=== PATIENT | male | born 1950 | race Caucasian/White ===

== ENCOUNTER 2020-04-14 00:02 | Inpatient (IN) | payer OTHER ==
[~2020-04-14] VITALS: Ht 182.9 cm; Wt 100.0 kg
[2020-04-14] MEDS ORDERED: ASPirin 81 mg TAB PO ONE (01:15)
[2020-04-14] MEDS ORDERED: dilTIAZem 25 MG/5 ML VIAL IV ONE (01:30)
[2020-04-14 01:42] LABS: Basophils # (auto) 0.1 10 ^3/uL (0-0.2); Basophils % (auto) 0.3 % (0.0-2.0); Eosinophils # (auto) 0 10 ^3/uL (0-0.8); Hematocrit 42.9 % (41.0-53.0); Hemoglobin 14.4 g/dL (13.5-17.5); Lymphocytes # (auto) 0.7 10 ^3/uL (0.4-5.4); Lymphocytes % (auto) 3.2 % (10.0-50.0); Mean Corpuscular Hemoglobin 28.2 pg (28.0-32.0); Mean Corpuscular Hgb Conc. 33.5 g/dL (32.0-36.0); Mean Corpuscular Volume 84.2 fL (80.0-100.0); Monocytes % (auto) 4.3 % (0.0-12.0); Neutrophils # (auto) 21.9 10 ^3/uL (1.6-8.6); Neutrophils % (auto) 92.2 % (37.0-80.0); Platelet Count (auto) 366 10^3/uL (140-450); Red Cell Distribution Width 14.6 % (11.8-14.3); White Blood Cell 23.7 10^3/uL (4.4-10.8)
[2020-04-14 01:58] LABS: Albumin 2.5 g/dL (3.4-5.0); BUN/Creatinine Ratio 16.9; Calcium 8.3 mg/dL (8.5-10.1); Magnesium 2.3 mg/dL (1.6-2.6); Potassium 3.7 mmol/L (3.5-5.1)
[2020-04-14 02:01] LABS: Bilirubin, Total 1.2 mg/dL (0.2-1.0); Total Protein 6.7 g/dL (6.4-8.2)
[2020-04-14 02:21] LABS: INR 1.07 (0.9-1.15); Partial Thromboplastin Time 28.2 sec (23.0-31.2)
[2020-04-14] MEDS ORDERED: AMIODARONE HCL 150 MG in D5W 5% 100 ML IV ONE (02:45)
[2020-04-14] MEDS ORDERED: AMIODARONE 450mg/250ml AE 250 ML IV SCH (02:45)
[2020-04-14] MEDS ORDERED: AMIODARONE HCL (50 MG/ ML) 3 ML VIAL IV ONE (02:48)
[2020-04-14 03:40] LABS: Urine Amorphous Crystal FEW /hpf (None Seen); Urine Bacteria FEW /hpf (None Seen); Urine Blood 3+ /uL (Negative); Urine Mucus FEW (None Seen); Urine Specific Gravity 1.019 (1.001-1.035); Urine WBC 7 /hpf (0 - 3)
[2020-04-14] MEDS ORDERED: TEMAZEPAM 15 MG CAP PO PRN (04:45)
[2020-04-14] MEDS ORDERED: DEXTROSE (50%) 50ML SYRG IV PRN ×2 (04:45→22:00)
[2020-04-14] MEDS ORDERED: ONDANSETRON HCL 4 MG/2 ML VIAL IV PRN (04:45)
[2020-04-14] MEDS ORDERED: NITROGLYCERIN 0.4 MG SL TAB SL PRN (04:45)
[2020-04-14] MEDS ORDERED: MORPHINE SULF INJ 2 MG/ML SYRINGE 1ML IV PRN (04:45)
[2020-04-14] MEDS: InsuLIN REG 1unit/0.01ml Soln (100units/ml) SC SCH ×4 (06:28→22:40)
[2020-04-14] MEDS: ACCU-CHEK COMFORT CURVE STRIP VI SCH ×4 (06:29→22:43)
[2020-04-14] MEDS: DOXYCYCLINE 100MG/250ML 250 ML IV SCH ×2 (08:21→20:46)
[2020-04-14] MEDS: PANTOPRAZOLE 40 MG TAB PO SCH (08:21)
[2020-04-14] MEDS: ZINC SULFATE 220mg CAP or TAB PO SCH (08:21)
[2020-04-14] MEDS: DexAMETHasone SOD PHOS 10MG/1ML VIAL INJ IV SCH (08:21)
[2020-04-14] MEDS: ASPirin 81 mg TAB PO SCH (08:21)
[2020-04-14] MEDS: LOSARTAN POTASSIUM 25 MG TAB PO SCH (08:21)
[2020-04-14] MEDS: ATENOLOL 50 MG TAB PO SCH (08:22)
[2020-04-14] MEDS: ASCORBIC ACID 1,000 MG TAB PO SCH (08:22)
[2020-04-14] MEDS: ENOXAPARIN SOD 40 MG/0.4 ML SYRINGE SC SCH (08:22)
[2020-04-14] MEDS: CHOLECALCIFEROL (VITD3) 2,000 UNIT CAP/TAB PO SCH (08:22)
[2020-04-14 08:37] LABS: Lactic Acid w/Reflex 3.7 mmol/L (0.4-2.0)
[2020-04-14] MEDS ORDERED: METF-489 PO (15:26)
[2020-04-14] MEDS ORDERED: LOSA25TA38 PO (15:29)
[2020-04-14] MEDS ORDERED: TAMS0.4C36 PO (15:38)
[2020-04-14] MEDS ORDERED: INS7030I SC (15:38)
[2020-04-14] MEDS ORDERED: INSREG3 SC (15:38)
[2020-04-14] MEDS ORDERED: PIOG1TAB36 PO (15:38)
[2020-04-14] MEDS ORDERED: ATEN50TA PO (15:38)
[2020-04-14] MEDS ORDERED: OMEP-260 PO (15:38)
[2020-04-14] MEDS ORDERED: ATOR40TA52 PO (15:38)
[2020-04-14] MEDS ORDERED: OLAN1TAB19 PO (15:38)
[2020-04-14] MEDS ORDERED: DULO30CA84 PO (15:46)
[2020-04-14] MEDS: AMIODARONE 450mg/250ml AE 250 ML IV SCH (20:46)
[2020-04-14] MEDS: ATORVASTATIN 20 MG TAB PO SCH (20:46)
[2020-04-15] MEDS: ACCU-CHEK COMFORT CURVE STRIP VI SCH ×4 (06:50→21:53)
[2020-04-15] MEDS: InsuLIN REG 1unit/0.01ml Soln (100units/ml) SC SCH ×4 (06:51→21:53)
[2020-04-15 08:43] LABS: Basophils # (auto) 0.1 10 ^3/uL (0-0.2); Eosinophils # (auto) 0 10 ^3/uL (0-0.8); Hemoglobin 14.3 g/dL (13.5-17.5); Lymphocytes # (auto) 1.3 10 ^3/uL (0.4-5.4); Lymphocytes % (auto) 5.7 % (10.0-50.0); Monocytes # (auto) 0.9 10 ^3/uL (0-1.3); Nucleated Red Blood Cells % 0.1 %; Red Cell Distribution Width 14.6 % (11.8-14.3)
[2020-04-15 08:46] LABS: Basophils % (auto) 0.3 % (0.0-2.0); Mean Corpuscular Hemoglobin 28.6 pg (28.0-32.0); Mean Corpuscular Hgb Conc. 34.1 g/dL (32.0-36.0); Mean Corpuscular Volume 83.9 fL (80.0-100.0); Monocytes % (auto) 3.9 % (0.0-12.0); Neutrophils % (auto) 90.1 % (37.0-80.0); Platelet Count (auto) 448 10^3/uL (140-450); Red Blood Cells 5.01 10^6/uL (4.5-5.90); White Blood Cell 23.2 10^3/uL (4.4-10.8)
[2020-04-15 08:57] LABS: Albumin 2.2 g/dL (3.4-5.0); Calcium 8.6 mg/dL (8.5-10.1); Magnesium 2.8 mg/dL (1.6-2.6)
[2020-04-15 09:01] LABS: BUN/Creatinine Ratio 21.4; Bilirubin, Total 1.2 mg/dL (0.2-1.0); Total Protein 7.2 g/dL (6.4-8.2)
[2020-04-15] MEDS: AMIODARONE 450mg/250ml AE 250 ML IV SCH (09:22)
[2020-04-15] MEDS: ASPirin 81 mg TAB PO SCH (09:49)
[2020-04-15] MEDS: DOXYCYCLINE 100MG/250ML 250 ML IV SCH ×2 (09:49→21:52)
[2020-04-15] MEDS: DexAMETHasone SOD PHOS 10MG/1ML VIAL INJ IV SCH (09:49)
[2020-04-15] MEDS: ZINC SULFATE 220mg CAP or TAB PO SCH (09:50)
[2020-04-15] MEDS: PANTOPRAZOLE 40 MG TAB PO SCH (09:51)
[2020-04-15] MEDS: LOSARTAN POTASSIUM 25 MG TAB PO SCH (09:51)
[2020-04-15] MEDS: ATENOLOL 50 MG TAB PO SCH (09:52)
[2020-04-15] MEDS: ASCORBIC ACID 1,000 MG TAB PO SCH (09:53)
[2020-04-15] MEDS: ENOXAPARIN SOD 40 MG/0.4 ML SYRINGE SC SCH (09:54)
[2020-04-15] MEDS: CHOLECALCIFEROL (VITD3) 2,000 UNIT CAP/TAB PO SCH (09:54)
[2020-04-15 16:47] VITALS: BP 105/51
[2020-04-15] MEDS: ATORVASTATIN 20 MG TAB PO SCH (21:52)
[2020-04-15 22:00] VITALS: BP 119/69
[2020-04-16] MEDS: AMIODARONE 450mg/250ml AE 250 ML IV SCH (00:14)
[2020-04-16 05:00] VITALS: BP 145/72
[2020-04-16 06:07] LABS: Basophils # (auto) 0 10 ^3/uL (0-0.2); Eosinophils # (auto) 0 10 ^3/uL (0-0.8); Eosinophils % (auto) 0.2 % (0.0-7.0)
[2020-04-16 06:10] LABS: Hematocrit 40.9 % (41.0-53.0); Hemoglobin 13.8 g/dL (13.5-17.5); Lymphocytes # (auto) 1.1 10 ^3/uL (0.4-5.4); Lymphocytes % (auto) 5.1 % (10.0-50.0); Mean Corpuscular Hemoglobin 28.8 pg (28.0-32.0); Mean Corpuscular Hgb Conc. 33.7 g/dL (32.0-36.0); Mean Corpuscular Volume 85.4 fL (80.0-100.0); Monocytes # (auto) 1.1 10 ^3/uL (0-1.3); Neutrophils # (auto) 19.1 10 ^3/uL (1.6-8.6); Neutrophils % (auto) 89.7 % (37.0-80.0); Nucleated Red Blood Cells % 0.1 %; Platelet Count (auto) 497 10^3/uL (140-450); Red Blood Cells 4.79 10^6/uL (4.5-5.90); Red Cell Distribution Width 14.8 % (11.8-14.3); White Blood Cell 21.3 10^3/uL (4.4-10.8)
[2020-04-16] MEDS: ACCU-CHEK COMFORT CURVE STRIP VI SCH ×4 (06:11→22:36)
[2020-04-16] MEDS: InsuLIN REG 1unit/0.01ml Soln (100units/ml) SC SCH ×4 (06:12→22:38)
[2020-04-16 06:29] LABS: BUN/Creatinine Ratio 31.2; Calcium 8.4 mg/dL (8.5-10.1); Magnesium 2.6 mg/dL (1.6-2.6); Potassium 4.4 mmol/L (3.5-5.1)
[2020-04-16 09:00] VITALS: BP 150/88
[2020-04-16] MEDS: DexAMETHasone SOD PHOS 10MG/1ML VIAL INJ IV SCH (10:12)
[2020-04-16] MEDS: DOXYCYCLINE 100MG/250ML 250 ML IV SCH ×2 (10:12→22:37)
[2020-04-16] MEDS: LOSARTAN POTASSIUM 25 MG TAB PO SCH (10:27)
[2020-04-16] MEDS: ZINC SULFATE 220mg CAP or TAB PO SCH (10:27)
[2020-04-16] MEDS: ASPirin 81 mg TAB PO SCH (10:27)
[2020-04-16] MEDS: PANTOPRAZOLE 40 MG TAB PO SCH (10:27)
[2020-04-16] MEDS: ATENOLOL 50 MG TAB PO SCH (10:28)
[2020-04-16] MEDS: ASCORBIC ACID 1,000 MG TAB PO SCH (10:28)
[2020-04-16] MEDS: CHOLECALCIFEROL (VITD3) 2,000 UNIT CAP/TAB PO SCH (10:28)
[2020-04-16] MEDS: ENOXAPARIN SOD 40 MG/0.4 ML SYRINGE SC SCH (10:29)
[2020-04-16] MEDS ORDERED: AMIODARONE HCL 200 MG TAB PO ONE (10:45)
[2020-04-16] MEDS ORDERED: REMDESIVIR PER PHARMACY 0 ML IV SCH (12:30)
[2020-04-16 13:00] VITALS: BP 148/85
[2020-04-16] MEDS ORDERED: REMDESIVIR 200 MG in NS 210ml LOADING DOSE ADULT IV ONE (15:00)
[2020-04-16 17:00] VITALS: BP 161/91
[2020-04-16] MEDS: SODIUM CHLORIDE 0.9% 1,000 ML IV SCH (18:41)
[2020-04-16 22:00] VITALS: BP 147/85
[2020-04-16] MEDS ORDERED: AMIODARONE HCL 200 MG TAB PO SCH (22:00)
[2020-04-16] MEDS: ATORVASTATIN 20 MG TAB PO SCH (22:37)
[2020-04-16] MEDS: ALBUTEROL SULF HFA 90MCG INH 200DOSE IN PRN (22:56)
[2020-04-17 05:00] VITALS: BP 145/77
[2020-04-17] MEDS: ACCU-CHEK COMFORT CURVE STRIP VI SCH ×4 (06:55→21:17)
[2020-04-17] MEDS: InsuLIN REG 1unit/0.01ml Soln (100units/ml) SC SCH ×4 (07:01→21:19)
[2020-04-17 08:40] VITALS: BP 151/82
[2020-04-17] MEDS: ASCORBIC ACID 1,000 MG TAB PO SCH (10:00)
[2020-04-17] MEDS: DOXYCYCLINE 100MG/250ML 250 ML IV SCH ×2 (11:03→21:17)
[2020-04-17] MEDS: ZINC SULFATE 220mg CAP or TAB PO SCH (11:03)
[2020-04-17] MEDS: ASPirin 81 mg TAB PO SCH (11:03)
[2020-04-17] MEDS: AMIODARONE HCL 200 MG TAB PO SCH (11:04)
[2020-04-17] MEDS: PANTOPRAZOLE 40 MG TAB PO SCH (11:06)
[2020-04-17] MEDS: LOSARTAN POTASSIUM 25 MG TAB PO SCH (11:06)
[2020-04-17] MEDS: ATENOLOL 50 MG TAB PO SCH (11:06)
[2020-04-17] MEDS: DexAMETHasone SOD PHOS 10MG/1ML VIAL INJ IV SCH (11:07)
[2020-04-17] MEDS: ENOXAPARIN SOD 40 MG/0.4 ML SYRINGE SC SCH (11:07)
[2020-04-17] MEDS: SODIUM CHLORIDE 0.9% 1,000 ML IV SCH (11:07)
[2020-04-17] MEDS: CHOLECALCIFEROL (VITD3) 2,000 UNIT CAP/TAB PO SCH (11:07)
[2020-04-17 12:20] LABS: Basophils # (auto) 0 10 ^3/uL (0-0.2); Basophils % (auto) 0.1 % (0.0-2.0); Eosinophils # (auto) 0 10 ^3/uL (0-0.8); Hemoglobin 14.2 g/dL (13.5-17.5); Monocytes # (auto) 0.9 10 ^3/uL (0-1.3)
[2020-04-17 12:22] LABS: Hematocrit 42.5 % (41.0-53.0); Mean Corpuscular Hemoglobin 28.3 pg (28.0-32.0); Mean Corpuscular Hgb Conc. 33.3 g/dL (32.0-36.0); Mean Corpuscular Volume 85.1 fL (80.0-100.0); Monocytes % (auto) 4.9 % (0.0-12.0); Neutrophils # (auto) 17.1 10 ^3/uL (1.6-8.6); Platelet Count (auto) 565 10^3/uL (140-450); Red Blood Cells 4.99 10^6/uL (4.5-5.90); Red Cell Distribution Width 14.8 % (11.8-14.3)
[2020-04-17 12:53] LABS: Potassium 4.7 mmol/L (3.5-5.1)
[2020-04-17 12:56] VITALS: BP 144/81
[2020-04-17 13:04] LABS: Albumin 2.2 g/dL (3.4-5.0); Total Protein 7.1 g/dL (6.4-8.2)
[2020-04-17] MEDS: REMDESIVIR 100 MG in SODIUM CHL 0.9% 250 ML IV SCH (15:12)
[2020-04-17 16:30] VITALS: BP 142/72
[2020-04-17] MEDS: ALBUTEROL SULF HFA 90MCG INH 200DOSE IN PRN (20:58)
[2020-04-17 21:00] VITALS: BP 127/69
[2020-04-17] MEDS: ATORVASTATIN 20 MG TAB PO SCH (21:17)
[2020-04-18 04:40] LABS: Urine Bacteria NONE SEEN /hpf (None Seen); Urine Blood 3+ /uL (Negative); Urine Mucus FEW (None Seen); Urine Specific Gravity 1.021 (1.001-1.035); Urine WBC 54 /hpf (0 - 3)
[2020-04-18 04:55] LABS: Protein, Urine 55.1 mg/dL (0.0-11.9)
[2020-04-18 05:00] VITALS: BP 134/71
[2020-04-18] MEDS: SODIUM CHLORIDE 0.9% 1,000 ML IV SCH ×2 (05:29→22:05)
[2020-04-18] MEDS: ACCU-CHEK COMFORT CURVE STRIP VI SCH ×4 (06:19→22:06)
[2020-04-18] MEDS: InsuLIN REG 1unit/0.01ml Soln (100units/ml) SC SCH ×4 (06:20→22:07)
[2020-04-18 07:27] LABS: Basophils # (auto) 0.1 10 ^3/uL (0-0.2); Basophils % (auto) 0.5 % (0.0-2.0); Eosinophils # (auto) 0 10 ^3/uL (0-0.8); Eosinophils % (auto) 0.1 % (0.0-7.0); Hemoglobin 13.9 g/dL (13.5-17.5); Lymphocytes # (auto) 1.5 10 ^3/uL (0.4-5.4); Mean Corpuscular Volume 85.9 fL (80.0-100.0); Neutrophils # (auto) 17.3 10 ^3/uL (1.6-8.6)
[2020-04-18] MEDS: ALBUTEROL SULF HFA 90MCG INH 200DOSE IN PRN (07:30)
[2020-04-18 07:31] LABS: Hematocrit 42.3 % (41.0-53.0); Lymphocytes % (auto) 7.6 % (10.0-50.0); Mean Corpuscular Hemoglobin 28.1 pg (28.0-32.0); Mean Corpuscular Hgb Conc. 32.8 g/dL (32.0-36.0); Monocytes # (auto) 1.1 10 ^3/uL (0-1.3); Monocytes % (auto) 5.3 % (0.0-12.0); Neutrophils % (auto) 86.5 % (37.0-80.0); Platelet Count (auto) 546 10^3/uL (140-450); Red Blood Cells 4.93 10^6/uL (4.5-5.90); Red Cell Distribution Width 14.6 % (11.8-14.3)
[2020-04-18 07:45] LABS: Magnesium 2.5 mg/dL (1.6-2.6); Potassium 4.6 mmol/L (3.5-5.1)
[2020-04-18 08:07] LABS: Albumin 2.1 g/dL (3.4-5.0); BUN/Creatinine Ratio 32.8; Bilirubin, Total 0.8 mg/dL (0.2-1.0); CRP High Sensitivity 12.5 mg/dL (< 0.3); Total Protein 6.7 g/dL (6.4-8.2)
[2020-04-18 09:00] VITALS: BP 115/66
[2020-04-18] MEDS: DexAMETHasone SOD PHOS 10MG/1ML VIAL INJ IV SCH (10:58)
[2020-04-18] MEDS: DOXYCYCLINE 100MG/250ML 250 ML IV SCH ×2 (10:59→22:06)
[2020-04-18] MEDS: AMIODARONE HCL 200 MG TAB PO SCH (10:59)
[2020-04-18] MEDS: ZINC SULFATE 220mg CAP or TAB PO SCH (10:59)
[2020-04-18] MEDS: LOSARTAN POTASSIUM 25 MG TAB PO SCH (10:59)
[2020-04-18] MEDS: ATENOLOL 50 MG TAB PO SCH (11:00)
[2020-04-18] MEDS: ASCORBIC ACID 1,000 MG TAB PO SCH (11:00)
[2020-04-18] MEDS: CHOLECALCIFEROL (VITD3) 2,000 UNIT CAP/TAB PO SCH (11:00)
[2020-04-18] MEDS: PANTOPRAZOLE 40 MG TAB PO SCH (11:00)
[2020-04-18 13:00] VITALS: BP 117/82
[2020-04-18] MEDS: REMDESIVIR 100 MG in SODIUM CHL 0.9% 250 ML IV SCH (15:24)
[2020-04-18 17:00] VITALS: BP 128/74
[2020-04-18] MEDS: ATORVASTATIN 20 MG TAB PO SCH (22:06)
[2020-04-19 00:35] VITALS: BP 126/70
[2020-04-19] MEDS: ALBUTEROL SULF HFA 90MCG INH 200DOSE IN PRN ×2 (02:48→21:07)
[2020-04-19] MEDS: HALOPERIDOL LACTATE 5 MG/ML INJ VIAL IM PRN ×2 (03:17→21:21)
[2020-04-19 05:00] VITALS: BP 143/91
[2020-04-19] MEDS: ACCU-CHEK COMFORT CURVE STRIP VI SCH ×4 (06:03→21:20)
[2020-04-19] MEDS: InsuLIN REG 1unit/0.01ml Soln (100units/ml) SC SCH ×4 (06:04→21:46)
[2020-04-19 06:53] LABS: Basophils # (auto) 0 10 ^3/uL (0-0.2); Eosinophils # (auto) 0 10 ^3/uL (0-0.8); Eosinophils % (auto) 0.1 % (0.0-7.0); Monocytes # (auto) 1.1 10 ^3/uL (0-1.3)
[2020-04-19 06:55] LABS: Basophils % (auto) 0.2 % (0.0-2.0); Hematocrit 42.6 % (41.0-53.0); Hemoglobin 14.3 g/dL (13.5-17.5); Lymphocytes % (auto) 4.9 % (10.0-50.0); Mean Corpuscular Hemoglobin 28.7 pg (28.0-32.0); Mean Corpuscular Hgb Conc. 33.5 g/dL (32.0-36.0); Mean Corpuscular Volume 85.7 fL (80.0-100.0); Monocytes % (auto) 5.1 % (0.0-12.0); Neutrophils # (auto) 19.3 10 ^3/uL (1.6-8.6); Neutrophils % (auto) 89.7 % (37.0-80.0); Nucleated Red Blood Cells % 0.1 %; Platelet Count (auto) 537 10^3/uL (140-450); Red Blood Cells 4.96 10^6/uL (4.5-5.90); Red Cell Distribution Width 14.9 % (11.8-14.3); White Blood Cell 21.5 10^3/uL (4.4-10.8)
[2020-04-19 07:06] LABS: Potassium 4.7 mmol/L (3.5-5.1)
[2020-04-19 07:14] LABS: Albumin 2.1 g/dL (3.4-5.0); Bilirubin, Total 0.8 mg/dL (0.2-1.0); Calcium 8.9 mg/dL (8.5-10.1); Magnesium 2.4 mg/dL (1.6-2.6); Total Protein 6.6 g/dL (6.4-8.2)
[2020-04-19 09:00] VITALS: BP 114/61
[2020-04-19] MEDS: DexAMETHasone SOD PHOS 10MG/1ML VIAL INJ IV SCH (10:34)
[2020-04-19] MEDS: ZINC SULFATE 220mg CAP or TAB PO SCH (10:34)
[2020-04-19] MEDS: LOSARTAN POTASSIUM 25 MG TAB PO SCH (10:35)
[2020-04-19] MEDS: AMIODARONE HCL 200 MG TAB PO SCH (10:35)
[2020-04-19] MEDS: CHOLECALCIFEROL (VITD3) 2,000 UNIT CAP/TAB PO SCH (10:36)
[2020-04-19] MEDS: PANTOPRAZOLE 40 MG TAB PO SCH (10:36)
[2020-04-19] MEDS: ASCORBIC ACID 1,000 MG TAB PO SCH (10:36)
[2020-04-19] MEDS: ATENOLOL 50 MG TAB PO SCH (10:36)
[2020-04-19] MEDS: SODIUM CHLORIDE 0.9% 1,000 ML IV SCH ×2 (12:55→19:00)
[2020-04-19 13:00] VITALS: BP 111/74
[2020-04-19] MEDS: LACTULOSE 20Gm/30ML SOLN PO ONE ×2 (14:15→15:39)
[2020-04-19] MEDS: REMDESIVIR 100 MG in SODIUM CHL 0.9% 250 ML IV SCH (15:40)
[2020-04-19 17:00] VITALS: BP 127/70
[2020-04-19] MEDS: ATORVASTATIN 20 MG TAB PO SCH (21:20)
[2020-04-19 23:14] VITALS: BP 117/63
[2020-04-20 05:00] VITALS: BP 131/54
[2020-04-20] MEDS: ACCU-CHEK COMFORT CURVE STRIP VI SCH ×4 (06:44→22:10)
[2020-04-20] MEDS: InsuLIN REG 1unit/0.01ml Soln (100units/ml) SC SCH ×4 (06:45→22:11)
[2020-04-20 07:53] LABS: Basophils # (auto) 0.1 10 ^3/uL (0-0.2); Eosinophils # (auto) 0 10 ^3/uL (0-0.8); Lymphocytes # (auto) 1.6 10 ^3/uL (0.4-5.4); Monocytes # (auto) 1.4 10 ^3/uL (0-1.3); Neutrophils % (auto) 86.5 % (37.0-80.0)
[2020-04-20 07:56] LABS: Basophils % (auto) 0.2 % (0.0-2.0); Hematocrit 45.3 % (41.0-53.0); Lymphocytes % (auto) 7.1 % (10.0-50.0); Mean Corpuscular Hemoglobin 28.8 pg (28.0-32.0); Mean Corpuscular Hgb Conc. 33.1 g/dL (32.0-36.0); Monocytes % (auto) 6.2 % (0.0-12.0); Neutrophils # (auto) 19.7 10 ^3/uL (1.6-8.6); Platelet Count (auto) 574 10^3/uL (140-450); Red Cell Distribution Width 14.9 % (11.8-14.3); White Blood Cell 22.8 10^3/uL (4.4-10.8)
[2020-04-20 08:00] VITALS: BP 145/57
[2020-04-20] MEDS: Ensure Enlive Strawberry 8oz Bottle PO SCH ×2 (08:00→18:00)
[2020-04-20 08:08] LABS: Albumin 2.3 g/dL (3.4-5.0); Calcium 9.1 mg/dL (8.5-10.1); Magnesium 2.9 mg/dL (1.6-2.6); Potassium 5.3 mmol/L (3.5-5.1)
[2020-04-20 08:11] LABS: BUN/Creatinine Ratio 30.2; Bilirubin, Total 0.8 mg/dL (0.2-1.0)
[2020-04-20] MEDS: AMIODARONE HCL 200 MG TAB PO SCH (08:51)
[2020-04-20] MEDS: DexAMETHasone SOD PHOS 10MG/1ML VIAL INJ IV SCH (08:51)
[2020-04-20] MEDS: ATENOLOL 50 MG TAB PO SCH (08:52)
[2020-04-20] MEDS: PANTOPRAZOLE 40 MG TAB PO SCH (08:52)
[2020-04-20] MEDS: LOSARTAN POTASSIUM 25 MG TAB PO SCH (08:53)
[2020-04-20] MEDS: ZINC SULFATE 220mg CAP or TAB PO SCH (08:53)
[2020-04-20] MEDS: CHOLECALCIFEROL (VITD3) 2,000 UNIT CAP/TAB PO SCH (08:54)
[2020-04-20] MEDS: ASCORBIC ACID 1,000 MG TAB PO SCH (08:54)
[2020-04-20] MEDS: ENOXAPARIN SOD 40 MG/0.4 ML SYRINGE SC SCH (08:54)
[2020-04-20] MEDS: SODIUM CHLORIDE 0.9% 1,000 ML IV SCH (09:22)
[2020-04-20] MEDS ORDERED: LACTULOSE 20Gm/30ML SOLN PO PRN (10:00)
[2020-04-20 13:37] VITALS: BP 97/48
[2020-04-20] MEDS: REMDESIVIR 100 MG in SODIUM CHL 0.9% 250 ML IV SCH (15:59)
[2020-04-20] MEDS ORDERED: SODIUM ZIRCONIUM CYCL 10 GM PAK PO ONE (18:00)
[2020-04-20] MEDS: ALBUTEROL SULF HFA 90MCG INH 200DOSE IN PRN (18:42)
[2020-04-20] MEDS: ATORVASTATIN 20 MG TAB PO SCH (22:10)
[2020-04-21] VITALS (34 sets, daily range): BP systolic 78–195; BP diastolic 14–69
[2020-04-21] MEDS ORDERED: ETOMIDATE (2MG/ML) 20ML VIAL IV ONE (06:38)
[2020-04-21] MEDS ORDERED: SUCCINYLCHOLINE CHLORIDE 20 MG/ML 10ML VIAL IV ONE (06:38)
[2020-04-21] MEDS ORDERED: MIDAZOLAM DRIP 50 mg/50mL 50 ML IV ONE ×3 (06:49→10:53)
[2020-04-21] MEDS: ACCU-CHEK COMFORT CURVE STRIP VI SCH ×4 (07:00→22:00)
[2020-04-21] MEDS: InsuLIN REG 1unit/0.01ml Soln (100units/ml) SC SCH ×4 (07:01→21:37)
[2020-04-21] MEDS ORDERED: PROPOFOL 100 ML IV ONE (07:05)
[2020-04-21] MEDS ORDERED: NOREPINEPHRINE 8 MG/250ML KIT 250 ML IV ONE ×2 (07:05→09:15)
[2020-04-21] MEDS: Ensure Enlive Strawberry 8oz Bottle PO SCH ×2 (08:00→18:00)
[2020-04-21 08:47] LABS: Hemoglobin 15.3 g/dL (13.5-17.5)
[2020-04-21 08:51] LABS: Hematocrit 47.3 % (41.0-53.0); Mean Corpuscular Hemoglobin 28.4 pg (28.0-32.0); Mean Corpuscular Hgb Conc. 32.3 g/dL (32.0-36.0); Mean Corpuscular Volume 87.9 fL (80.0-100.0); Platelet Count (auto) 640 10^3/uL (140-450); Red Blood Cells 5.38 10^6/uL (4.5-5.90)
[2020-04-21 08:53] LABS: BUN/Creatinine Ratio 21.1; Calcium 8.4 mg/dL (8.5-10.1); Magnesium 2.5 mg/dL (1.6-2.6); Potassium 4.8 mmol/L (3.5-5.1)
[2020-04-21 09:08] LABS: Basophils % (manual) 0 (0.0-2.0); Blast Cells 0; Eosinophils % (manual) 0 (0-7); Metamyelocytes % 0; Myelocytes % 0; Promyelocytes % 0; Reactive Lymphocytes 0; White Blood Cell 30.2 10^3/uL (4.4-10.8)
[2020-04-21] MEDS ORDERED: PHENYLEPHRINE IV 250 ML IV ONE (09:17)
[2020-04-21] MEDS ORDERED: VANCOMYCIN PER PHARMACY 0 MG IV SCH (09:30)
[2020-04-21] MEDS ORDERED: cefTRIAXone 1GM/50ML D5W 50 ML IV ONE (09:30)
[2020-04-21] MEDS: ATENOLOL 50 MG TAB PO SCH (10:00)
[2020-04-21] MEDS ORDERED: VANCOMYCIN 1GM/250ML 250 ML IV SCH (10:00)
[2020-04-21] MEDS: LOSARTAN POTASSIUM 25 MG TAB PO SCH (10:00)
[2020-04-21] MEDS: ZINC SULFATE 220mg CAP or TAB PO SCH (10:33)
[2020-04-21] MEDS: ASCORBIC ACID 1,000 MG TAB PO SCH (10:33)
[2020-04-21] MEDS: AMIODARONE HCL 200 MG TAB PO SCH (10:33)
[2020-04-21] MEDS: PANTOPRAZOLE 40 MG TAB PO SCH (10:33)
[2020-04-21] MEDS: DexAMETHasone SOD PHOS 10MG/1ML VIAL INJ IV SCH (10:33)
[2020-04-21] MEDS: CHOLECALCIFEROL (VITD3) 2,000 UNIT CAP/TAB PO SCH (10:33)
[2020-04-21] MEDS: ENOXAPARIN SOD 40 MG/0.4 ML SYRINGE SC SCH (10:33)
[2020-04-21 10:40] LABS: Band Neutrophils % (manual) 8; Lymphocytes % (manual) 2 (10.0-50.0); Monocytes % (manual) 1 (0-12)
[2020-04-21] MEDS: PROPOFOL 100 ML IV SCH ×2 (11:45→23:09)
[2020-04-21] MEDS: MIDAZOLAM DRIP 50 mg/50mL 50 ML IV SCH ×2 (11:45→20:00)
[2020-04-21] MEDS: NOREPINEPHRINE 8 MG/250ML KIT 250 ML IV SCH (13:15)
[2020-04-21] MEDS: PHENYLEPHRINE IV 250 ML IV SCH ×2 (13:15→20:05)
[2020-04-21 16:04] LABS: INR 1.34 (0.9-1.15); Partial Thromboplastin Time 30.4 sec (23.0-31.2)
[2020-04-21] MEDS: DOPamine 1600MCG/ML D5W 250 ML IV SCH (18:15)
[2020-04-21] MEDS: ATORVASTATIN 20 MG TAB PO SCH (22:00)
[2020-04-21] MEDS: SODIUM CHLOR 0.9% PF (SALINE LOCK) 10ML VIAL/SYR IV SCH (22:00)
[2020-04-22] VITALS (90 sets, daily range): BP systolic 69–154; BP diastolic 13–47
[2020-04-22] MEDS: PHENYLEPHRINE IV 250 ML IV SCH ×3 (04:25→21:03)
[2020-04-22 04:40] LABS: Hematocrit 41.2 % (41.0-53.0); Hemoglobin 13.1 g/dL (13.5-17.5); Mean Corpuscular Hemoglobin 28.1 pg (28.0-32.0); Mean Corpuscular Hgb Conc. 31.9 g/dL (32.0-36.0); Mean Corpuscular Volume 88.3 fL (80.0-100.0); Platelet Count (auto) 372 10^3/uL (140-450); Red Blood Cells 4.67 10^6/uL (4.5-5.90); Red Cell Distribution Width 15.5 % (11.8-14.3); White Blood Cell 29.8 10^3/uL (4.4-10.8)
[2020-04-22] MEDS: MIDAZOLAM DRIP 50 mg/50mL 50 ML IV SCH ×4 (05:00→21:05)
[2020-04-22 05:01] LABS: Basophils % (manual) 0 (0.0-2.0); Blast Cells 0; Eosinophils % (manual) 0 (0-7); Metamyelocytes % 0; Myelocytes % 0; Promyelocytes % 0; Reactive Lymphocytes 0
[2020-04-22 05:18] LABS: Albumin 1.7 g/dL (3.4-5.0); BUN/Creatinine Ratio 19.2; Bilirubin, Total 0.5 mg/dL (0.2-1.0); Calcium 7.9 mg/dL (8.5-10.1); Total Protein 5.8 g/dL (6.4-8.2)
[2020-04-22 05:54] LABS: Potassium 5.9 mmol/L (3.5-5.1)
[2020-04-22] MEDS: ACCU-CHEK COMFORT CURVE STRIP VI SCH ×3 (06:25→17:12)
[2020-04-22] MEDS: InsuLIN REG 1unit/0.01ml Soln (100units/ml) SC SCH ×4 (06:26→21:03)
[2020-04-22] MEDS: NOREPINEPHRINE 8 MG/250ML KIT 250 ML IV SCH (07:00)
[2020-04-22] MEDS: AMIODARONE HCL 200 MG TAB PO SCH (08:01)
[2020-04-22] MEDS: LOSARTAN POTASSIUM 25 MG TAB PO SCH (08:02)
[2020-04-22] MEDS: ATENOLOL 50 MG TAB PO SCH (08:02)
[2020-04-22] MEDS: DOPamine 1600MCG/ML D5W 250 ML IV SCH (08:55)
[2020-04-22] MEDS ORDERED: cefTRIAXone 1GM/50ML D5W 50 ML IV SCH (09:00)
[2020-04-22] MEDS: ASCORBIC ACID 1,000 MG TAB PO SCH (09:32)
[2020-04-22] MEDS: PANTOPRAZOLE 40 MG TAB PO SCH (09:32)
[2020-04-22] MEDS: ENOXAPARIN SOD 40 MG/0.4 ML SYRINGE SC SCH (09:32)
[2020-04-22] MEDS: ZINC SULFATE 220mg CAP or TAB PO SCH (09:32)
[2020-04-22] MEDS: CHOLECALCIFEROL (VITD3) 2,000 UNIT CAP/TAB PO SCH (09:32)
[2020-04-22] MEDS: DexAMETHasone SOD PHOS 10MG/1ML VIAL INJ IV SCH (09:32)
[2020-04-22] MEDS: SODIUM CHLOR 0.9% PF (SALINE LOCK) 10ML VIAL/SYR IV SCH ×2 (09:32→21:03)
[2020-04-22] MEDS: Ensure Enlive Strawberry 8oz Bottle PO SCH ×2 (09:33→15:48)
[2020-04-22] MEDS ORDERED: DEXTROSE (50%) 50ML SYRG IV ONE (12:15)
[2020-04-22] MEDS ORDERED: InsuLIN REG 1unit/0.01ml Soln (100units/ml) IV ONE (12:15)
[2020-04-22] MEDS ORDERED: SODIUM ZIRCONIUM CYCL 10 GM PAK PO ONE (12:15)
[2020-04-22] MEDS ORDERED: SODIUM BICARBONATE 8.4% INJ 50ML SYRINGE IV ONE ×2 (12:15→19:00)
[2020-04-22] MEDS ORDERED: ALBUTEROL SULF 2.5 MG/0.5ML(0.5%) NEB SOLN NEB ONE ×2 (12:15→19:00)
[2020-04-22 13:03] LABS: Band Neutrophils % (manual) 15
[2020-04-22 13:04] LABS: Lymphocytes % (manual) 3 (10.0-50.0); Monocytes % (manual) 3 (0-12)
[2020-04-22] MEDS: ALBUTEROL SULF 2.5 MG/0.5ML(0.5%) NEB SOLN NEB SCH ×2 (14:07→18:37)
[2020-04-22] MEDS: LINEZOLID 600MG/300ML 300 ML IV SCH (14:27)
[2020-04-22] MEDS: MEROPENEM 500MG IVPB 50 ML IV SCH (16:00)
[2020-04-22] MEDS: BUDESONIDE (INHALATION) 0.5 MG/2 ML NEB NEB SCH (18:37)
[2020-04-22] MEDS ORDERED: CALCIUM GLUC 4.65meq/50ml D5AE 50 ML IV ONE (19:00)
[2020-04-22] MEDS: ATORVASTATIN 20 MG TAB PO SCH (21:03)
[2020-04-22] MEDS: PROPOFOL 100 ML IV SCH (21:05)
[2020-04-22] MEDS ORDERED: INSULIN LANTUS (GLARGINE) 1 /0.01ml (100units/ml) SC SCH (22:00)
[2020-04-23] VITALS (92 sets, daily range): BP systolic 83–143; BP diastolic 19–234
[2020-04-23] MEDS: DOPamine 1600MCG/ML D5W 250 ML IV SCH ×2 (00:08→16:40)
[2020-04-23] MEDS: ACCU-CHEK COMFORT CURVE STRIP VI SCH ×5 (00:08→23:38)
[2020-04-23] MEDS: InsuLIN REG 1unit/0.01ml Soln (100units/ml) SC SCH ×5 (00:09→23:39)
[2020-04-23] MEDS: AMIODARONE HCL 200 MG TAB PO SCH ×2 (00:12→00:13)
[2020-04-23] MEDS: LINEZOLID 600MG/300ML 300 ML IV SCH ×2 (01:18→14:06)
[2020-04-23] MEDS: PROPOFOL 100 ML IV SCH ×2 (01:23→22:55)
[2020-04-23] MEDS: MEROPENEM 500MG IVPB 50 ML IV SCH ×2 (04:00→16:44)
[2020-04-23 04:56] LABS: Mean Corpuscular Hemoglobin 28.9 pg (28.0-32.0)
[2020-04-23 05:02] LABS: Hematocrit 41.5 % (41.0-53.0); Hemoglobin 13.4 g/dL (13.5-17.5); Mean Corpuscular Hgb Conc. 32.3 g/dL (32.0-36.0); Mean Corpuscular Volume 89.4 fL (80.0-100.0); Platelet Count (auto) 266 10^3/uL (140-450); Red Blood Cells 4.64 10^6/uL (4.5-5.90); Red Cell Distribution Width 15.6 % (11.8-14.3)
[2020-04-23 05:09] LABS: Calcium 7.6 mg/dL (8.5-10.1)
[2020-04-23 05:12] LABS: BUN/Creatinine Ratio 24.5
[2020-04-23] MEDS: PHENYLEPHRINE IV 250 ML IV SCH ×3 (05:25→22:05)
[2020-04-23 05:58] LABS: Potassium 5.7 mmol/L (3.5-5.1)
[2020-04-23 05:59] LABS: Band Neutrophils % (manual) 0; Basophils % (manual) 0 (0.0-2.0); Blast Cells 0; Eosinophils % (manual) 0 (0-7); Metamyelocytes % 0; Myelocytes % 0; Promyelocytes % 0; Reactive Lymphocytes 0; White Blood Cell 31.1 10^3/uL (4.4-10.8)
[2020-04-23] MEDS: BUDESONIDE (INHALATION) 0.5 MG/2 ML NEB NEB SCH ×2 (06:30→19:35)
[2020-04-23] MEDS: ALBUTEROL SULF 2.5 MG/0.5ML(0.5%) NEB SOLN NEB SCH ×3 (06:30→19:35)
[2020-04-23] MEDS: MIDAZOLAM DRIP 50 mg/50mL 50 ML IV SCH ×3 (07:00→18:52)
[2020-04-23 08:12] LABS: Lymphocytes % (manual) 9 (10.0-50.0); Monocytes % (manual) 1 (0-12)
[2020-04-23] MEDS ORDERED: SODIUM ZIRCONIUM CYCL 10 GM PAK ONE (08:52)
[2020-04-23] MEDS: DexAMETHasone SOD PHOS 10MG/1ML VIAL INJ IV SCH (08:54)
[2020-04-23] MEDS: PANTOPRAZOLE 40 MG TAB PO SCH (08:55)
[2020-04-23] MEDS: ATENOLOL 50 MG TAB PO SCH (08:55)
[2020-04-23] MEDS: ZINC SULFATE 220mg CAP or TAB PO SCH (08:55)
[2020-04-23] MEDS: SODIUM CHLOR 0.9% PF (SALINE LOCK) 10ML VIAL/SYR IV SCH ×2 (08:55→22:00)
[2020-04-23] MEDS: ASCORBIC ACID 1,000 MG TAB PO SCH (08:56)
[2020-04-23] MEDS: CHOLECALCIFEROL (VITD3) 2,000 UNIT CAP/TAB PO SCH (08:56)
[2020-04-23] MEDS ORDERED: AMIODARONE HCL 150 MG in D5W 5% 100 ML IV ONE (09:00)
[2020-04-23] MEDS ORDERED: ENOXAPARIN SOD 80 MG/0.8ML SYRINGE SC SCH (09:00)
[2020-04-23] MEDS ORDERED: SODIUM ZIRCONIUM CYCL 10 GM PAK PO ONE (09:00)
[2020-04-23] MEDS ORDERED: AMIODARONE 450mg/250ml AE 250 ML IV SCH (09:15)
[2020-04-23] MEDS ORDERED: ENOXAPARIN SOD 60 MG/0.6 ML SYRINGE SC ONE (09:26)
[2020-04-23] MEDS: INSULIN LANTUS (GLARGINE) 1 /0.01ml (100units/ml) SC SCH ×2 (11:43→22:00)
[2020-04-23] MEDS: NOREPINEPHRINE 8 MG/250ML KIT 250 ML IV SCH ×2 (11:45→15:35)
[2020-04-23] MEDS: ENOXAPARIN SOD 80 MG/0.8ML SYRINGE SC SCH (12:02)
[2020-04-23] MEDS: AMIODARONE 450mg/250ml AE 250 ML IV SCH (15:15)
[2020-04-23] MEDS ORDERED: Glucerna 1.2 Cal 1Liter BOTTLE GT SCH (19:30)
[2020-04-23] MEDS: ACETAMINOPHEN 325 MG TAB PO PRN (21:00)
[2020-04-23] MEDS: ATORVASTATIN 20 MG TAB PO SCH (22:00)
[2020-04-24] VITALS (92 sets, daily range): BP systolic 83–138; BP diastolic 19–229
[2020-04-24] MEDS: LINEZOLID 600MG/300ML 300 ML IV SCH ×2 (02:00→13:41)
[2020-04-24] MEDS: NOREPINEPHRINE 8 MG/250ML KIT 250 ML IV SCH (02:52)
[2020-04-24] MEDS: MEROPENEM 500MG IVPB 50 ML IV SCH ×2 (04:00→16:13)
[2020-04-24] MEDS: MIDAZOLAM DRIP 50 mg/50mL 50 ML IV SCH ×4 (04:00→22:23)
[2020-04-24] MEDS: DOPamine 1600MCG/ML D5W 250 ML IV SCH ×2 (04:55→10:10)
[2020-04-24 05:10] LABS: Basophils # (auto) 0 10 ^3/uL (0-0.2); Basophils % (auto) 0.2 % (0.0-2.0); Eosinophils # (auto) 0 10 ^3/uL (0-0.8); Hematocrit 41.4 % (41.0-53.0); Hemoglobin 13.6 g/dL (13.5-17.5); Lymphocytes # (auto) 1.3 10 ^3/uL (0.4-5.4); Lymphocytes % (auto) 4.7 % (10.0-50.0); Mean Corpuscular Hemoglobin 29.1 pg (28.0-32.0); Mean Corpuscular Hgb Conc. 32.9 g/dL (32.0-36.0); Mean Corpuscular Volume 88.3 fL (80.0-100.0); Monocytes # (auto) 1.3 10 ^3/uL (0-1.3); Monocytes % (auto) 4.8 % (0.0-12.0); Neutrophils # (auto) 25.6 10 ^3/uL (1.6-8.6); Neutrophils % (auto) 90.3 % (37.0-80.0); Nucleated Red Blood Cells % 0.1 %; Platelet Count (auto) 257 10^3/uL (140-450); Red Blood Cells 4.69 10^6/uL (4.5-5.90); Red Cell Distribution Width 15.4 % (11.8-14.3); White Blood Cell 28.4 10^3/uL (4.4-10.8)
[2020-04-24 05:28] LABS: Potassium 5.5 mmol/L (3.5-5.1)
[2020-04-24 05:33] LABS: Calcium 7.7 mg/dL (8.5-10.1); Magnesium 2.7 mg/dL (1.6-2.6)
[2020-04-24] MEDS: ACCU-CHEK COMFORT CURVE STRIP VI SCH ×3 (05:59→18:00)
[2020-04-24] MEDS: ACETAMINOPHEN 325 MG TAB PO PRN ×2 (06:00→20:00)
[2020-04-24] MEDS: InsuLIN REG 1unit/0.01ml Soln (100units/ml) SC SCH ×3 (06:02→18:25)
[2020-04-24] MEDS: PHENYLEPHRINE IV 250 ML IV SCH ×3 (06:25→22:17)
[2020-04-24] MEDS: ALBUTEROL SULF 2.5 MG/0.5ML(0.5%) NEB SOLN NEB SCH ×3 (06:48→21:57)
[2020-04-24] MEDS: BUDESONIDE (INHALATION) 0.5 MG/2 ML NEB NEB SCH ×2 (06:49→21:57)
[2020-04-24] MEDS: AMIODARONE 450mg/250ml AE 250 ML IV SCH ×2 (07:55→22:15)
[2020-04-24] MEDS: ATENOLOL 50 MG TAB PO SCH (10:00)
[2020-04-24] MEDS: ENOXAPARIN SOD 80 MG/0.8ML SYRINGE SC SCH (10:07)
[2020-04-24] MEDS: DexAMETHasone SOD PHOS 10MG/1ML VIAL INJ IV SCH (10:07)
[2020-04-24] MEDS: ASCORBIC ACID 1,000 MG TAB PO SCH (10:08)
[2020-04-24] MEDS: PANTOPRAZOLE 40 MG TAB PO SCH (10:08)
[2020-04-24] MEDS: ZINC SULFATE 220mg CAP or TAB PO SCH (10:08)
[2020-04-24] MEDS: CHOLECALCIFEROL (VITD3) 2,000 UNIT CAP/TAB PO SCH (10:08)
[2020-04-24] MEDS: SODIUM CHLOR 0.9% PF (SALINE LOCK) 10ML VIAL/SYR IV SCH ×2 (10:09→22:16)
[2020-04-24] MEDS: INSULIN LANTUS (GLARGINE) 1 /0.01ml (100units/ml) SC SCH ×2 (10:34→22:19)
[2020-04-24] MEDS ORDERED: SODIUM ZIRCONIUM CYCL 10 GM PAK PO ONE (12:15)
[2020-04-24] MEDS: PROPOFOL 100 ML IV SCH ×2 (16:10→22:22)
[2020-04-24] MEDS: ATORVASTATIN 20 MG TAB PO SCH (22:17)
[2020-04-25] VITALS (97 sets, daily range): BP systolic 75–135; BP diastolic 16–88
[2020-04-25] MEDS: MIDAZOLAM DRIP 50 mg/50mL 50 ML IV SCH ×3 (02:00→20:00)
[2020-04-25] MEDS: LINEZOLID 600MG/300ML 300 ML IV SCH ×2 (02:10→14:37)
[2020-04-25] MEDS: MEROPENEM 500MG IVPB 50 ML IV SCH (04:00)
[2020-04-25 05:49] LABS: Basophils # (auto) 0.1 10 ^3/uL (0-0.2); Basophils % (auto) 0.3 % (0.0-2.0); Eosinophils # (auto) 0 10 ^3/uL (0-0.8); Hemoglobin 13.2 g/dL (13.5-17.5); Lymphocytes # (auto) 1.3 10 ^3/uL (0.4-5.4); Lymphocytes % (auto) 5.3 % (10.0-50.0); Mean Corpuscular Hemoglobin 28.6 pg (28.0-32.0); Mean Corpuscular Hgb Conc. 32.2 g/dL (32.0-36.0); Mean Corpuscular Volume 88.9 fL (80.0-100.0); Monocytes # (auto) 1.2 10 ^3/uL (0-1.3); Monocytes % (auto) 4.8 % (0.0-12.0); Neutrophils # (auto) 22.6 10 ^3/uL (1.6-8.6); Neutrophils % (auto) 89.6 % (37.0-80.0); Platelet Count (auto) 219 10^3/uL (140-450); Red Blood Cells 4.62 10^6/uL (4.5-5.90); Red Cell Distribution Width 15.5 % (11.8-14.3); White Blood Cell 25.3 10^3/uL (4.4-10.8)
[2020-04-25] MEDS: ACCU-CHEK COMFORT CURVE STRIP VI SCH ×4 (05:54→18:03)
[2020-04-25] MEDS: InsuLIN REG 1unit/0.01ml Soln (100units/ml) SC SCH ×4 (05:59→18:00)
[2020-04-25 06:07] LABS: Calcium 8.1 mg/dL (8.5-10.1); Magnesium 3.2 mg/dL (1.6-2.6); Potassium 4.9 mmol/L (3.5-5.1)
[2020-04-25 06:09] LABS: BUN/Creatinine Ratio 31.7
[2020-04-25] MEDS: BUDESONIDE (INHALATION) 0.5 MG/2 ML NEB NEB SCH ×2 (06:40→21:59)
[2020-04-25] MEDS: ALBUTEROL SULF 2.5 MG/0.5ML(0.5%) NEB SOLN NEB SCH ×3 (06:40→21:59)
[2020-04-25] MEDS: PHENYLEPHRINE IV 250 ML IV SCH ×2 (07:25→15:45)
[2020-04-25] MEDS: NOREPINEPHRINE 8 MG/250ML KIT 250 ML IV SCH (09:10)
[2020-04-25] MEDS: ATENOLOL 50 MG TAB PO SCH (10:00)
[2020-04-25] MEDS: DOPamine 1600MCG/ML D5W 250 ML IV SCH (10:15)
[2020-04-25] MEDS: SODIUM CHLOR 0.9% PF (SALINE LOCK) 10ML VIAL/SYR IV SCH ×2 (10:30→22:24)
[2020-04-25] MEDS: ZINC SULFATE 220mg CAP or TAB PO SCH (10:30)
[2020-04-25] MEDS: PANTOPRAZOLE 40 MG TAB PO SCH (10:30)
[2020-04-25] MEDS: ASCORBIC ACID 1,000 MG TAB PO SCH (10:31)
[2020-04-25] MEDS: ENOXAPARIN SOD 80 MG/0.8ML SYRINGE SC SCH (10:32)
[2020-04-25] MEDS: INSULIN LANTUS (GLARGINE) 1 /0.01ml (100units/ml) SC SCH ×2 (11:15→22:25)
[2020-04-25] MEDS: AMIODARONE 450mg/250ml AE 250 ML IV SCH (14:36)
[2020-04-25] MEDS: CHOLECALCIFEROL (VITD3) 2,000 UNIT CAP/TAB PO SCH (19:31)
[2020-04-25] MEDS: ACETAMINOPHEN 325 MG TAB PO PRN (20:00)
[2020-04-25] MEDS: MEROPENEM 1GM IVPB 100 ML IV SCH (22:23)
[2020-04-25] MEDS: ATORVASTATIN 20 MG TAB PO SCH (22:23)
[2020-04-25] MEDS: PROPOFOL 100 ML IV SCH (22:26)
[2020-04-26] VITALS (95 sets, daily range): BP systolic 86–167; BP diastolic 19–78
[2020-04-26] MEDS: PHENYLEPHRINE IV 250 ML IV SCH ×3 (00:05→16:45)
[2020-04-26] MEDS: ACCU-CHEK COMFORT CURVE STRIP VI SCH ×4 (00:39→18:33)
[2020-04-26] MEDS: InsuLIN REG 1unit/0.01ml Soln (100units/ml) SC SCH ×4 (00:40→18:35)
[2020-04-26] MEDS: MIDAZOLAM DRIP 50 mg/50mL 50 ML IV SCH ×5 (00:42→20:00)
[2020-04-26] MEDS: DOPamine 1600MCG/ML D5W 250 ML IV SCH ×2 (00:55→15:35)
[2020-04-26] MEDS: LINEZOLID 600MG/300ML 300 ML IV SCH ×2 (02:05→13:35)
[2020-04-26] MEDS: NOREPINEPHRINE 8 MG/250ML KIT 250 ML IV SCH ×2 (02:09→14:48)
[2020-04-26] MEDS: AMIODARONE 450mg/250ml AE 250 ML IV SCH ×2 (02:10→18:51)
[2020-04-26 05:11] LABS: Basophils # (auto) 0 10 ^3/uL (0-0.2); Basophils % (auto) 0.1 % (0.0-2.0); Eosinophils # (auto) 0 10 ^3/uL (0-0.8); Hematocrit 40.4 % (41.0-53.0); Lymphocytes # (auto) 1.9 10 ^3/uL (0.4-5.4); Lymphocytes % (auto) 6.9 % (10.0-50.0); Mean Corpuscular Hemoglobin 27.8 pg (28.0-32.0); Mean Corpuscular Hgb Conc. 32.2 g/dL (32.0-36.0); Mean Corpuscular Volume 86.6 fL (80.0-100.0); Monocytes # (auto) 1.4 10 ^3/uL (0-1.3); Monocytes % (auto) 5.1 % (0.0-12.0); Neutrophils # (auto) 23.6 10 ^3/uL (1.6-8.6); Neutrophils % (auto) 87.9 % (37.0-80.0); Nucleated Red Blood Cells % 0.1 %; Platelet Count (auto) 147 10^3/uL (140-450); Red Blood Cells 4.66 10^6/uL (4.5-5.90); Red Cell Distribution Width 15.4 % (11.8-14.3); White Blood Cell 26.9 10^3/uL (4.4-10.8)
[2020-04-26] MEDS: PROPOFOL 100 ML IV SCH ×3 (06:08→20:00)
[2020-04-26] MEDS: ALBUTEROL SULF HFA 90MCG INH 200DOSE IN PRN (07:27)
[2020-04-26] MEDS: BUDESONIDE (INHALATION) 0.5 MG/2 ML NEB NEB SCH ×2 (07:27→21:49)
[2020-04-26] MEDS: ALBUTEROL SULF 2.5 MG/0.5ML(0.5%) NEB SOLN NEB SCH ×2 (07:27→14:53)
[2020-04-26] MEDS: INSULIN LANTUS (GLARGINE) 1 /0.01ml (100units/ml) SC SCH ×2 (09:26→22:00)
[2020-04-26] MEDS: ENOXAPARIN SOD 80 MG/0.8ML SYRINGE SC SCH (09:27)
[2020-04-26] MEDS: CHOLECALCIFEROL (VITD3) 2,000 UNIT CAP/TAB PO SCH (09:27)
[2020-04-26] MEDS: ASCORBIC ACID 1,000 MG TAB PO SCH (09:28)
[2020-04-26] MEDS: ATENOLOL 50 MG TAB PO SCH (09:28)
[2020-04-26] MEDS: ZINC SULFATE 220mg CAP or TAB PO SCH (09:29)
[2020-04-26] MEDS: PANTOPRAZOLE 40 MG TAB PO SCH (09:29)
[2020-04-26 09:30] LABS: BUN/Creatinine Ratio 34.9; Calcium 7.5 mg/dL (8.5-10.1); Magnesium 3.2 mg/dL (1.6-2.6); Potassium 4.6 mmol/L (3.5-5.1)
[2020-04-26] MEDS: SODIUM CHLOR 0.9% PF (SALINE LOCK) 10ML VIAL/SYR IV SCH ×2 (09:30→22:00)
[2020-04-26] MEDS: MEROPENEM 1GM IVPB 100 ML IV SCH ×2 (09:31→22:33)
[2020-04-26] MEDS: SODIUM CHLORIDE 0.9% 1,000 ML IV SCH (09:50)
[2020-04-26] MEDS: ATORVASTATIN 20 MG TAB PO SCH (22:00)
[2020-04-27] VITALS (96 sets, daily range): BP systolic 89–163; BP diastolic 36–62
[2020-04-27] MEDS: MIDAZOLAM DRIP 50 mg/50mL 50 ML IV SCH
[2020-04-27] MEDS: PHENYLEPHRINE IV 250 ML IV SCH ×3 (01:05→19:01)
[2020-04-27] MEDS: ACCU-CHEK COMFORT CURVE STRIP VI SCH ×4 (01:17→18:00)
[2020-04-27] MEDS: InsuLIN REG 1unit/0.01ml Soln (100units/ml) SC SCH ×4 (01:19→18:00)
[2020-04-27] MEDS: PROPOFOL 100 ML IV SCH (05:00)
[2020-04-27] MEDS: LINEZOLID 600MG/300ML 300 ML IV SCH ×2 (05:44→15:00)
[2020-04-27] MEDS: SODIUM CHLORIDE 0.9% 1,000 ML IV SCH (05:44)
[2020-04-27] MEDS: ALBUTEROL SULF 2.5 MG/0.5ML(0.5%) NEB SOLN NEB SCH ×3 (06:00→18:12)
[2020-04-27] MEDS: DOPamine 1600MCG/ML D5W 250 ML IV SCH ×2 (06:15→20:55)
[2020-04-27] MEDS: ASCORBIC ACID 1,000 MG TAB PO SCH (08:51)
[2020-04-27] MEDS: ZINC SULFATE 220mg CAP or TAB PO SCH (08:51)
[2020-04-27] MEDS: PANTOPRAZOLE 40 MG/10 ML VIAL INJ IV SCH (08:51)
[2020-04-27] MEDS: CHOLECALCIFEROL (VITD3) 2,000 UNIT CAP/TAB PO SCH (08:52)
[2020-04-27] MEDS: SODIUM CHLOR 0.9% PF (SALINE LOCK) 10ML VIAL/SYR IV SCH ×2 (08:52→21:30)
[2020-04-27] MEDS: ATENOLOL 50 MG TAB PO SCH (08:52)
[2020-04-27] MEDS ORDERED: BUMETANIDE 2.5mg/10ml (0.25 mg/ml) INJ IV ONE (09:30)
[2020-04-27] MEDS: INSULIN LANTUS (GLARGINE) 1 /0.01ml (100units/ml) SC SCH ×2 (10:00→21:48)
[2020-04-27] MEDS: BUDESONIDE (INHALATION) 0.5 MG/2 ML NEB NEB SCH ×2 (10:00→18:12)
[2020-04-27] MEDS: SOD CHL 0.45% 1,000 ML IV SCH ×2 (10:12→22:55)
[2020-04-27] MEDS: MEROPENEM 1GM IVPB 100 ML IV SCH ×2 (10:12→21:30)
[2020-04-27 10:31] LABS: Basophils # (auto) 0.1 10 ^3/uL (0-0.2); Basophils % (auto) 0.5 % (0.0-2.0); Eosinophils # (auto) 0 10 ^3/uL (0-0.8); Eosinophils % (auto) 0.2 % (0.0-7.0); Hematocrit 35.1 % (41.0-53.0); Hemoglobin 11.8 g/dL (13.5-17.5); Lymphocytes # (auto) 1.5 10 ^3/uL (0.4-5.4); Lymphocytes % (auto) 7.6 % (10.0-50.0); Mean Corpuscular Hemoglobin 29.3 pg (28.0-32.0); Mean Corpuscular Hgb Conc. 33.6 g/dL (32.0-36.0); Mean Corpuscular Volume 87.2 fL (80.0-100.0); Monocytes # (auto) 0.8 10 ^3/uL (0-1.3); Monocytes % (auto) 4.2 % (0.0-12.0); Neutrophils # (auto) 17.1 10 ^3/uL (1.6-8.6); Neutrophils % (auto) 87.5 % (37.0-80.0); Nucleated Red Blood Cells % 0.1 %; Platelet Count (auto) 113 10^3/uL (140-450); Red Blood Cells 4.03 10^6/uL (4.5-5.90); Red Cell Distribution Width 15.3 % (11.8-14.3); White Blood Cell 19.5 10^3/uL (4.4-10.8)
[2020-04-27] MEDS: ENOXAPARIN SOD 80 MG/0.8ML SYRINGE SC SCH (10:35)
[2020-04-27 10:59] LABS: Albumin 1.3 g/dL (3.4-5.0); Calcium 6.3 mg/dL (8.5-10.1); Potassium 4.2 mmol/L (3.5-5.1)
[2020-04-27 11:04] LABS: Bilirubin, Total 0.8 mg/dL (0.2-1.0); Total Protein 4.6 g/dL (6.4-8.2)
[2020-04-27 11:05] LABS: BUN/Creatinine Ratio 43.1
[2020-04-27] MEDS: AMIODARONE 450mg/250ml AE 250 ML IV SCH (11:37)
[2020-04-27] MEDS: ATORVASTATIN 20 MG TAB PO SCH (21:31)
[2020-04-28] VITALS (95 sets, daily range): BP systolic 112–180; BP diastolic 42–69
[2020-04-28] MEDS: ACCU-CHEK COMFORT CURVE STRIP VI SCH ×4 (00:04→17:59)
[2020-04-28] MEDS: InsuLIN REG 1unit/0.01ml Soln (100units/ml) SC SCH ×4 (00:05→17:57)
[2020-04-28] MEDS: AMIODARONE 450mg/250ml AE 250 ML IV SCH ×2 (00:15→15:15)
[2020-04-28] MEDS: PHENYLEPHRINE IV 250 ML IV SCH ×3 (02:05→18:45)
[2020-04-28] MEDS: LINEZOLID 600MG/300ML 300 ML IV SCH (02:27)
[2020-04-28 06:00] LABS: Basophils # (auto) 0 10 ^3/uL (0-0.2); Basophils % (auto) 0.2 % (0.0-2.0); Eosinophils # (auto) 0.1 10 ^3/uL (0-0.8); Eosinophils % (auto) 0.3 % (0.0-7.0); Hemoglobin 11.8 g/dL (13.5-17.5); Lymphocytes # (auto) 1.2 10 ^3/uL (0.4-5.4); Lymphocytes % (auto) 6.4 % (10.0-50.0); Mean Corpuscular Hemoglobin 28.4 pg (28.0-32.0); Mean Corpuscular Hgb Conc. 32.8 g/dL (32.0-36.0); Mean Corpuscular Volume 86.6 fL (80.0-100.0); Monocytes # (auto) 0.8 10 ^3/uL (0-1.3); Monocytes % (auto) 4.6 % (0.0-12.0); Neutrophils # (auto) 16.4 10 ^3/uL (1.6-8.6); Neutrophils % (auto) 88.5 % (37.0-80.0); Nucleated Red Blood Cells % 0.1 %; Platelet Count (auto) 117 10^3/uL (140-450); Red Blood Cells 4.16 10^6/uL (4.5-5.90); Red Cell Distribution Width 15.1 % (11.8-14.3); White Blood Cell 18.5 10^3/uL (4.4-10.8)
[2020-04-28] MEDS: ALBUTEROL SULF 2.5 MG/0.5ML(0.5%) NEB SOLN NEB SCH ×3 (06:00→21:37)
[2020-04-28 07:04] LABS: Potassium 3.3 mmol/L (3.5-5.1)
[2020-04-28 07:10] LABS: BUN/Creatinine Ratio 48.5; Calcium 7.2 mg/dL (8.5-10.1); Magnesium 3.2 mg/dL (1.6-2.6)
[2020-04-28] MEDS ORDERED: POTASSIUM CHL 20MEQ/100ML 100 ML IV ONE (09:15)
[2020-04-28] MEDS: BUDESONIDE (INHALATION) 0.5 MG/2 ML NEB NEB SCH ×2 (09:49→21:37)
[2020-04-28] MEDS: ENOXAPARIN SOD 80 MG/0.8ML SYRINGE SC SCH (10:00)
[2020-04-28] MEDS: INSULIN LANTUS (GLARGINE) 1 /0.01ml (100units/ml) SC SCH ×2 (10:00→22:06)
[2020-04-28] MEDS: ATENOLOL 50 MG TAB PO SCH (10:00)
[2020-04-28] MEDS: ZINC SULFATE 220mg CAP or TAB PO SCH (10:11)
[2020-04-28] MEDS: CHOLECALCIFEROL (VITD3) 2,000 UNIT CAP/TAB PO SCH (10:11)
[2020-04-28] MEDS: PANTOPRAZOLE 40 MG/10 ML VIAL INJ IV SCH (10:11)
[2020-04-28] MEDS: SODIUM CHLOR 0.9% PF (SALINE LOCK) 10ML VIAL/SYR IV SCH ×2 (10:11→22:05)
[2020-04-28] MEDS: ASCORBIC ACID 1,000 MG TAB PO SCH (10:11)
[2020-04-28] MEDS: Glucerna 1.2 Cal 1Liter BOTTLE GT SCH ×4 (11:44→22:04)
[2020-04-28] MEDS: AMPICILLIN SOD 2 GM in SODIUM CHL 0.9% 100 ML IV SCH ×4 (12:03→23:59)
[2020-04-28] MEDS: SOD CHL 0.45% 1,000 ML IV SCH (12:10)
[2020-04-28] MEDS: NOREPINEPHRINE 8 MG/250ML KIT 250 ML IV SCH (12:43)
[2020-04-28] MEDS: PROPOFOL 100 ML IV SCH ×3 (12:43→22:53)
[2020-04-28] MEDS: MIDAZOLAM DRIP 50 mg/50mL 50 ML IV SCH (12:44)
[2020-04-28] MEDS: DOPamine 1600MCG/ML D5W 250 ML IV SCH (12:44)
[2020-04-28] MEDS ORDERED: BUMETANIDE 2.5mg/10ml (0.25 mg/ml) INJ IV ONE (15:45)
[2020-04-28] MEDS: ATORVASTATIN 20 MG TAB PO SCH (22:05)
[2020-04-29] VITALS (76 sets, daily range): BP systolic 105–161; BP diastolic 39–76
[2020-04-29] MEDS: InsuLIN REG 1unit/0.01ml Soln (100units/ml) SC SCH ×4 (00:07→18:23)
[2020-04-29] MEDS: Glucerna 1.2 Cal 1Liter BOTTLE GT SCH ×6 (02:05→22:23)
[2020-04-29] MEDS: SOD CHL 0.45% 1,000 ML IV SCH ×2 (02:05→14:50)
[2020-04-29] MEDS: DOPamine 1600MCG/ML D5W 250 ML IV SCH ×2 (02:15→16:55)
[2020-04-29] MEDS: PHENYLEPHRINE IV 250 ML IV SCH ×3 (03:01→19:45)
[2020-04-29] MEDS: PROPOFOL 100 ML IV SCH ×3 (03:52→19:00)
[2020-04-29] MEDS: AMPICILLIN SOD 2 GM in SODIUM CHL 0.9% 100 ML IV SCH ×2 (05:43→12:23)
[2020-04-29] MEDS: ACCU-CHEK COMFORT CURVE STRIP VI SCH ×4 (05:44→18:25)
[2020-04-29] MEDS: AMIODARONE 450mg/250ml AE 250 ML IV SCH ×2 (06:15→21:15)
[2020-04-29 06:40] LABS: Basophils # (auto) 0.1 10 ^3/uL (0-0.2); Basophils % (auto) 0.4 % (0.0-2.0); Eosinophils # (auto) 0 10 ^3/uL (0-0.8); Eosinophils % (auto) 0.2 % (0.0-7.0); Hematocrit 35.2 % (41.0-53.0); Hemoglobin 11.9 g/dL (13.5-17.5); Lymphocytes % (auto) 4.9 % (10.0-50.0); Mean Corpuscular Hemoglobin 28.9 pg (28.0-32.0); Mean Corpuscular Hgb Conc. 33.8 g/dL (32.0-36.0); Mean Corpuscular Volume 85.6 fL (80.0-100.0); Monocytes % (auto) 5.2 % (0.0-12.0); Neutrophils # (auto) 17.2 10 ^3/uL (1.6-8.6); Neutrophils % (auto) 89.3 % (37.0-80.0); Nucleated Red Blood Cells % 0.2 %; Platelet Count (auto) 143 10^3/uL (140-450); Red Blood Cells 4.11 10^6/uL (4.5-5.90); Red Cell Distribution Width 15.1 % (11.8-14.3); White Blood Cell 19.3 10^3/uL (4.4-10.8)
[2020-04-29] MEDS: ALBUTEROL SULF 2.5 MG/0.5ML(0.5%) NEB SOLN NEB SCH ×3 (07:09→22:43)
[2020-04-29] MEDS: BUDESONIDE (INHALATION) 0.5 MG/2 ML NEB NEB SCH ×2 (07:09→22:43)
[2020-04-29 07:15] LABS: BUN/Creatinine Ratio 57.3; Calcium 7.4 mg/dL (8.5-10.1); Magnesium 3.2 mg/dL (1.6-2.6); Potassium 3.4 mmol/L (3.5-5.1)
[2020-04-29] MEDS ORDERED: POTASSIUM CHLORIDE 20 MEQ, LIDOCAINE 1% (LOCAL ANESTH.) 2 ML in SODIUM CHL 0.9% 100 ML IV ONE (10:45)
[2020-04-29] MEDS: SODIUM CHLOR 0.9% PF (SALINE LOCK) 10ML VIAL/SYR IV SCH ×2 (11:03→21:48)
[2020-04-29] MEDS: ASCORBIC ACID 1,000 MG TAB PO SCH (11:04)
[2020-04-29] MEDS: ATENOLOL 50 MG TAB PO SCH (11:04)
[2020-04-29] MEDS: CHOLECALCIFEROL (VITD3) 2,000 UNIT CAP/TAB PO SCH (11:05)
[2020-04-29] MEDS: ENOXAPARIN SOD 80 MG/0.8ML SYRINGE SC SCH (11:05)
[2020-04-29] MEDS: PANTOPRAZOLE 40 MG/10 ML VIAL INJ IV SCH (11:05)
[2020-04-29] MEDS: ZINC SULFATE 220mg CAP or TAB PO SCH (11:06)
[2020-04-29] MEDS: INSULIN LANTUS (GLARGINE) 1 /0.01ml (100units/ml) SC SCH ×2 (11:07→21:47)
[2020-04-29] MEDS: NOREPINEPHRINE 8 MG/250ML KIT 250 ML IV SCH (11:45)
[2020-04-29] MEDS: MIDAZOLAM DRIP 50 mg/50mL 50 ML IV SCH (11:45)
[2020-04-29] MEDS ORDERED: QUEtiapine FUMARATE 25 MG TAB PO ONE (13:30)
[2020-04-29] MEDS: ACETAMINOPHEN 325 MG TAB PO PRN (17:55)
[2020-04-29] MEDS: QUEtiapine FUMARATE 25 MG TAB PO SCH (21:45)
[2020-04-29] MEDS: ATORVASTATIN 20 MG TAB PO SCH (21:48)
[2020-04-30] VITALS (67 sets, daily range): BP systolic 111–164; BP diastolic 42–71
[2020-04-30] MEDS: ACCU-CHEK COMFORT CURVE STRIP VI SCH ×4 (00:13→18:47)
[2020-04-30] MEDS: AMPICILLIN SOD 2 GM in SODIUM CHL 0.9% 100 ML IV SCH ×4 (00:14→18:47)
[2020-04-30] MEDS: DEXTROSE (50%) 50ML SYRG IV PRN (01:45)
[2020-04-30] MEDS: Glucerna 1.2 Cal 1Liter BOTTLE GT SCH ×6 (01:45→22:00)
[2020-04-30] MEDS: PHENYLEPHRINE IV 250 ML IV SCH ×3 (04:05→20:45)
[2020-04-30] MEDS: SOD CHL 0.45% 1,000 ML IV SCH ×2 (04:10→16:47)
[2020-04-30 05:25] LABS: Basophils # (auto) 0 10 ^3/uL (0-0.2); Basophils % (auto) 0.1 % (0.0-2.0); Eosinophils # (auto) 0.1 10 ^3/uL (0-0.8); Eosinophils % (auto) 0.3 % (0.0-7.0); Hematocrit 32.2 % (41.0-53.0); Hemoglobin 10.9 g/dL (13.5-17.5); Lymphocytes % (auto) 4.8 % (10.0-50.0); Mean Corpuscular Hemoglobin 29.3 pg (28.0-32.0); Mean Corpuscular Hgb Conc. 33.8 g/dL (32.0-36.0); Mean Corpuscular Volume 86.6 fL (80.0-100.0); Monocytes # (auto) 1.3 10 ^3/uL (0-1.3); Monocytes % (auto) 6.7 % (0.0-12.0); Neutrophils # (auto) 17.8 10 ^3/uL (1.6-8.6); Neutrophils % (auto) 88.1 % (37.0-80.0); Platelet Count (auto) 134 10^3/uL (140-450); Red Blood Cells 3.72 10^6/uL (4.5-5.90); Red Cell Distribution Width 15.2 % (11.8-14.3); White Blood Cell 20.2 10^3/uL (4.4-10.8)
[2020-04-30] MEDS: InsuLIN REG 1unit/0.01ml Soln (100units/ml) SC SCH ×4 (05:32→18:00)
[2020-04-30 05:40] LABS: Potassium 3.7 mmol/L (3.5-5.1)
[2020-04-30 05:44] LABS: BUN/Creatinine Ratio 63.2; Magnesium 3.2 mg/dL (1.6-2.6)
[2020-04-30] MEDS: BUDESONIDE (INHALATION) 0.5 MG/2 ML NEB NEB SCH ×2 (06:14→19:07)
[2020-04-30] MEDS: ALBUTEROL SULF 2.5 MG/0.5ML(0.5%) NEB SOLN NEB SCH ×3 (06:14→19:07)
[2020-04-30] MEDS: DOPamine 1600MCG/ML D5W 250 ML IV SCH ×2 (07:35→22:15)
[2020-04-30] MEDS: PROPOFOL 100 ML IV SCH (07:53)
[2020-04-30] MEDS: ASCORBIC ACID 1,000 MG TAB PO SCH ×2 (09:27→13:07)
[2020-04-30] MEDS: QUEtiapine FUMARATE 25 MG TAB PO SCH ×2 (09:27→22:00)
[2020-04-30] MEDS: ZINC SULFATE 220mg CAP or TAB PO SCH (09:28)
[2020-04-30] MEDS: ATENOLOL 50 MG TAB PO SCH (09:28)
[2020-04-30] MEDS: ENOXAPARIN SOD 80 MG/0.8ML SYRINGE SC SCH (09:29)
[2020-04-30] MEDS: SODIUM CHLOR 0.9% PF (SALINE LOCK) 10ML VIAL/SYR IV SCH ×2 (11:21→22:00)
[2020-04-30] MEDS: CHOLECALCIFEROL (VITD3) 2,000 UNIT CAP/TAB PO SCH (11:21)
[2020-04-30] MEDS: INSULIN LANTUS (GLARGINE) 1 /0.01ml (100units/ml) SC SCH ×2 (11:29→22:00)
[2020-04-30] MEDS: NOREPINEPHRINE 8 MG/250ML KIT 250 ML IV SCH (11:45)
[2020-04-30] MEDS: MIDAZOLAM DRIP 50 mg/50mL 50 ML IV SCH (11:45)
[2020-04-30] MEDS: AMIODARONE 450mg/250ml AE 250 ML IV SCH (12:15)
[2020-04-30] MEDS: PANTOPRAZOLE 40 MG/10 ML VIAL INJ IV SCH (13:05)
[2020-04-30] MEDS: ATORVASTATIN 20 MG TAB PO SCH (22:00)
[2020-05-01] VITALS (98 sets, daily range): BP systolic 101–162; BP diastolic 42–118
[2020-05-01] MEDS: AMPICILLIN SOD 2 GM in SODIUM CHL 0.9% 100 ML IV SCH ×5 (00:02→23:48)
[2020-05-01] MEDS: ACCU-CHEK COMFORT CURVE STRIP VI SCH ×5 (00:02→23:44)
[2020-05-01] MEDS: Glucerna 1.2 Cal 1Liter BOTTLE GT SCH ×6 (01:48→21:27)
[2020-05-01] MEDS: AMIODARONE 450mg/250ml AE 250 ML IV SCH ×2 (03:15→15:19)
[2020-05-01] MEDS: PHENYLEPHRINE IV 250 ML IV SCH ×3 (05:05→21:27)
[2020-05-01] MEDS: InsuLIN REG 1unit/0.01ml Soln (100units/ml) SC SCH ×5 (05:36→23:44)
[2020-05-01] MEDS: SOD CHL 0.45% 1,000 ML IV SCH (06:49)
[2020-05-01 07:13] LABS: Basophils # (auto) 0 10 ^3/uL (0-0.2); Basophils % (auto) 0.2 % (0.0-2.0); Eosinophils # (auto) 0 10 ^3/uL (0-0.8); Eosinophils % (auto) 0.2 % (0.0-7.0); Hemoglobin 10.7 g/dL (13.5-17.5); Lymphocytes # (auto) 1.4 10 ^3/uL (0.4-5.4); Lymphocytes % (auto) 6.9 % (10.0-50.0); Mean Corpuscular Hemoglobin 28.3 pg (28.0-32.0); Mean Corpuscular Hgb Conc. 32.4 g/dL (32.0-36.0); Mean Corpuscular Volume 87.2 fL (80.0-100.0); Monocytes # (auto) 1.3 10 ^3/uL (0-1.3); Monocytes % (auto) 6.5 % (0.0-12.0); Neutrophils # (auto) 17.4 10 ^3/uL (1.6-8.6); Neutrophils % (auto) 86.2 % (37.0-80.0); Platelet Count (auto) 164 10^3/uL (140-450); Red Blood Cells 3.79 10^6/uL (4.5-5.90); Red Cell Distribution Width 15.4 % (11.8-14.3); White Blood Cell 20.1 10^3/uL (4.4-10.8)
[2020-05-01 07:14] LABS: Calcium 7.4 mg/dL (8.5-10.1); Magnesium 2.7 mg/dL (1.6-2.6); Potassium 3.7 mmol/L (3.5-5.1)
[2020-05-01 07:17] LABS: BUN/Creatinine Ratio 60.2
[2020-05-01] MEDS: ALBUTEROL SULF 2.5 MG/0.5ML(0.5%) NEB SOLN NEB SCH ×3 (07:40→19:00)
[2020-05-01] MEDS: BUDESONIDE (INHALATION) 0.5 MG/2 ML NEB NEB SCH ×2 (07:40→19:00)
[2020-05-01] MEDS: INSULIN LANTUS (GLARGINE) 1 /0.01ml (100units/ml) SC SCH ×3 (10:00→21:31)
[2020-05-01] MEDS: ATENOLOL 50 MG TAB PO SCH (10:00)
[2020-05-01] MEDS: PANTOPRAZOLE 40 MG/10 ML VIAL INJ IV SCH (10:00)
[2020-05-01] MEDS: QUEtiapine FUMARATE 25 MG TAB PO SCH ×2 (10:11→21:29)
[2020-05-01] MEDS: ASCORBIC ACID 1,000 MG TAB PO SCH (10:11)
[2020-05-01] MEDS: SODIUM CHLOR 0.9% PF (SALINE LOCK) 10ML VIAL/SYR IV SCH ×2 (10:12→21:27)
[2020-05-01] MEDS: ZINC SULFATE 220mg CAP or TAB PO SCH (10:12)
[2020-05-01] MEDS: CHOLECALCIFEROL (VITD3) 2,000 UNIT CAP/TAB PO SCH (10:13)
[2020-05-01] MEDS: ENOXAPARIN SOD 80 MG/0.8ML SYRINGE SC SCH (10:13)
[2020-05-01] MEDS: PROPOFOL 100 ML IV SCH (11:45)
[2020-05-01] MEDS: NOREPINEPHRINE 8 MG/250ML KIT 250 ML IV SCH (11:45)
[2020-05-01] MEDS: MIDAZOLAM DRIP 50 mg/50mL 50 ML IV SCH (11:45)
[2020-05-01] MEDS: DOPamine 1600MCG/ML D5W 250 ML IV SCH (12:42)
[2020-05-01] MEDS: D5W 5% 1,000 ML IV SCH (13:00)
[2020-05-01] MEDS: ATORVASTATIN 20 MG TAB PO SCH (21:28)
[2020-05-01] MEDS: ACETAMINOPHEN 325 MG TAB PO PRN (21:29)
[2020-05-02] VITALS (84 sets, daily range): BP systolic 113–154; BP diastolic 42–68
[2020-05-02] MEDS: Glucerna 1.2 Cal 1Liter BOTTLE GT SCH ×6 (02:12→22:27)
[2020-05-02] MEDS: DOPamine 1600MCG/ML D5W 250 ML IV SCH ×2 (03:35→18:06)
[2020-05-02] MEDS: InsuLIN REG 1unit/0.01ml Soln (100units/ml) SC SCH ×3 (05:57→17:13)
[2020-05-02] MEDS: ACCU-CHEK COMFORT CURVE STRIP VI SCH ×3 (05:57→17:13)
[2020-05-02] MEDS: PHENYLEPHRINE IV 250 ML IV SCH ×3 (05:57→22:29)
[2020-05-02] MEDS: ALBUTEROL SULF 2.5 MG/0.5ML(0.5%) NEB SOLN NEB SCH ×3 (06:25→19:27)
[2020-05-02 06:56] LABS: Basophils # (auto) 0 10 ^3/uL (0-0.2); Basophils % (auto) 0.1 % (0.0-2.0); Eosinophils # (auto) 0 10 ^3/uL (0-0.8); Eosinophils % (auto) 0.1 % (0.0-7.0); Hematocrit 33.5 % (41.0-53.0); Hemoglobin 10.7 g/dL (13.5-17.5); Lymphocytes # (auto) 1.3 10 ^3/uL (0.4-5.4); Lymphocytes % (auto) 7.2 % (10.0-50.0); Mean Corpuscular Hemoglobin 28.7 pg (28.0-32.0); Mean Corpuscular Hgb Conc. 31.9 g/dL (32.0-36.0); Monocytes # (auto) 1.1 10 ^3/uL (0-1.3); Monocytes % (auto) 5.9 % (0.0-12.0); Neutrophils % (auto) 86.7 % (37.0-80.0); Platelet Count (auto) 180 10^3/uL (140-450); Red Blood Cells 3.72 10^6/uL (4.5-5.90); Red Cell Distribution Width 15.9 % (11.8-14.3); White Blood Cell 18.5 10^3/uL (4.4-10.8)
[2020-05-02] MEDS: AMPICILLIN SOD 2 GM in SODIUM CHL 0.9% 100 ML IV SCH ×4 (07:15→23:28)
[2020-05-02 07:22] LABS: BUN/Creatinine Ratio 48.4; Calcium 7.3 mg/dL (8.5-10.1); Magnesium 2.6 mg/dL (1.6-2.6); Potassium 3.9 mmol/L (3.5-5.1)
[2020-05-02] MEDS: AMIODARONE 450mg/250ml AE 250 ML IV SCH (09:15)
[2020-05-02] MEDS: ASCORBIC ACID 1,000 MG TAB PO SCH (09:54)
[2020-05-02] MEDS: QUEtiapine FUMARATE 25 MG TAB PO SCH ×2 (09:54→22:28)
[2020-05-02] MEDS: ENOXAPARIN SOD 80 MG/0.8ML SYRINGE SC SCH (09:54)
[2020-05-02] MEDS: ZINC SULFATE 220mg CAP or TAB PO SCH (09:55)
[2020-05-02] MEDS: CHOLECALCIFEROL (VITD3) 2,000 UNIT CAP/TAB PO SCH (09:55)
[2020-05-02] MEDS: ATENOLOL 50 MG TAB PO SCH (09:55)
[2020-05-02] MEDS: SODIUM CHLOR 0.9% PF (SALINE LOCK) 10ML VIAL/SYR IV SCH ×2 (09:55→22:28)
[2020-05-02] MEDS: D5W 5% 1,000 ML IV SCH (09:56)
[2020-05-02] MEDS: PANTOPRAZOLE 40 MG/10 ML VIAL INJ IV SCH (09:56)
[2020-05-02] MEDS: INSULIN LANTUS (GLARGINE) 1 /0.01ml (100units/ml) SC SCH ×2 (09:57→22:32)
[2020-05-02] MEDS: PROPOFOL 100 ML IV SCH (11:45)
[2020-05-02] MEDS: NOREPINEPHRINE 8 MG/250ML KIT 250 ML IV SCH (11:45)
[2020-05-02] MEDS: BUDESONIDE (INHALATION) 0.5 MG/2 ML NEB NEB SCH ×2 (12:30→19:27)
[2020-05-02] MEDS: ATORVASTATIN 20 MG TAB PO SCH (22:28)
[2020-05-03] VITALS (47 sets, daily range): BP systolic 47–161; BP diastolic 55–73
[2020-05-03] MEDS: ACCU-CHEK COMFORT CURVE STRIP VI SCH ×4 (00:13→18:00)
[2020-05-03] MEDS: AMIODARONE 450mg/250ml AE 250 ML IV SCH ×2 (00:15→15:15)
[2020-05-03] MEDS: InsuLIN REG 1unit/0.01ml Soln (100units/ml) SC SCH ×4 (00:15→18:00)
[2020-05-03] MEDS: Glucerna 1.2 Cal 1Liter BOTTLE GT SCH ×6 (02:06→22:00)
[2020-05-03] MEDS: D5W 5% 1,000 ML IV SCH ×2 (04:02→13:42)
[2020-05-03 04:44] LABS: Basophils # (auto) 0 10 ^3/uL (0-0.2); Basophils % (auto) 0.1 % (0.0-2.0); Eosinophils # (auto) 0.1 10 ^3/uL (0-0.8); Eosinophils % (auto) 0.4 % (0.0-7.0); Hematocrit 32.3 % (41.0-53.0); Hemoglobin 10.5 g/dL (13.5-17.5); Lymphocytes # (auto) 1.3 10 ^3/uL (0.4-5.4); Lymphocytes % (auto) 7.8 % (10.0-50.0); Mean Corpuscular Hemoglobin 28.6 pg (28.0-32.0); Mean Corpuscular Hgb Conc. 32.6 g/dL (32.0-36.0); Mean Corpuscular Volume 87.7 fL (80.0-100.0); Monocytes # (auto) 0.9 10 ^3/uL (0-1.3); Neutrophils % (auto) 86.7 % (37.0-80.0); Platelet Count (auto) 181 10^3/uL (140-450); Red Blood Cells 3.68 10^6/uL (4.5-5.90); Red Cell Distribution Width 15.8 % (11.8-14.3); White Blood Cell 17.3 10^3/uL (4.4-10.8)
[2020-05-03 05:03] LABS: BUN/Creatinine Ratio 38.3; Calcium 7.5 mg/dL (8.5-10.1); Magnesium 2.3 mg/dL (1.6-2.6); Potassium 4.3 mmol/L (3.5-5.1)
[2020-05-03] MEDS: AMPICILLIN SOD 2 GM in SODIUM CHL 0.9% 100 ML IV SCH ×3 (05:36→18:00)
[2020-05-03] MEDS: PHENYLEPHRINE IV 250 ML IV SCH ×3 (05:36→23:45)
[2020-05-03] MEDS: BUDESONIDE (INHALATION) 0.5 MG/2 ML NEB NEB SCH ×2 (07:00→19:44)
[2020-05-03] MEDS: ALBUTEROL SULF 2.5 MG/0.5ML(0.5%) NEB SOLN NEB SCH ×3 (07:00→19:44)
[2020-05-03] MEDS: DOPamine 1600MCG/ML D5W 250 ML IV SCH ×2 (08:12→23:35)
[2020-05-03] MEDS: PANTOPRAZOLE 40 MG/10 ML VIAL INJ IV SCH (08:13)
[2020-05-03] MEDS: SODIUM CHLOR 0.9% PF (SALINE LOCK) 10ML VIAL/SYR IV SCH ×2 (08:13→22:00)
[2020-05-03] MEDS: QUEtiapine FUMARATE 25 MG TAB PO SCH ×2 (08:14→22:00)
[2020-05-03] MEDS: ZINC SULFATE 220mg CAP or TAB PO SCH (08:14)
[2020-05-03] MEDS: ATENOLOL 50 MG TAB PO SCH (08:14)
[2020-05-03] MEDS: CHOLECALCIFEROL (VITD3) 2,000 UNIT CAP/TAB PO SCH (08:15)
[2020-05-03] MEDS: ASCORBIC ACID 1,000 MG TAB PO SCH (08:15)
[2020-05-03] MEDS: ENOXAPARIN SOD 80 MG/0.8ML SYRINGE SC SCH (08:16)
[2020-05-03] MEDS: INSULIN LANTUS (GLARGINE) 1 /0.01ml (100units/ml) SC SCH ×2 (10:00→22:00)
[2020-05-03] MEDS ORDERED: FREE WATER GT SCH (10:00)
[2020-05-03] MEDS: FREE WATER GT SCH ×3 (10:00→17:37)
[2020-05-03] MEDS: DEXTROSE (50%) 50ML SYRG IV PRN (10:08)
[2020-05-03] MEDS: PROPOFOL 100 ML IV SCH (11:45)
[2020-05-03] MEDS: NOREPINEPHRINE 8 MG/250ML KIT 250 ML IV SCH (11:45)
[2020-05-03] MEDS: ACETAMINOPHEN 325 MG TAB PO PRN (12:15)
[2020-05-03] MEDS: ATORVASTATIN 20 MG TAB PO SCH (22:00)
[2020-05-04] VITALS (29 sets, daily range): BP systolic 114–160; BP diastolic 46–83
[2020-05-04] MEDS: Glucerna 1.2 Cal 1Liter BOTTLE GT SCH ×6 (02:00→22:21)
[2020-05-04 04:57] LABS: Basophils # (auto) 0.1 10 ^3/uL (0-0.2); Basophils % (auto) 0.4 % (0.0-2.0); Eosinophils # (auto) 0.1 10 ^3/uL (0-0.8); Eosinophils % (auto) 0.6 % (0.0-7.0); Hematocrit 28.5 % (41.0-53.0); Hemoglobin 9.4 g/dL (13.5-17.5); Lymphocytes # (auto) 1.6 10 ^3/uL (0.4-5.4); Lymphocytes % (auto) 8.1 % (10.0-50.0); Mean Corpuscular Hemoglobin 28.9 pg (28.0-32.0); Mean Corpuscular Hgb Conc. 32.8 g/dL (32.0-36.0); Mean Corpuscular Volume 87.9 fL (80.0-100.0); Monocytes # (auto) 0.8 10 ^3/uL (0-1.3); Monocytes % (auto) 4.2 % (0.0-12.0); Neutrophils # (auto) 16.9 10 ^3/uL (1.6-8.6); Neutrophils % (auto) 86.7 % (37.0-80.0); Platelet Count (auto) 173 10^3/uL (140-450); Red Blood Cells 3.24 10^6/uL (4.5-5.90); Red Cell Distribution Width 15.7 % (11.8-14.3); White Blood Cell 19.5 10^3/uL (4.4-10.8)
[2020-05-04 05:20] LABS: Potassium 4.4 mmol/L (3.5-5.1)
[2020-05-04 05:22] LABS: BUN/Creatinine Ratio 32.1; Calcium 7.3 mg/dL (8.5-10.1); Magnesium 2.4 mg/dL (1.6-2.6)
[2020-05-04] MEDS: InsuLIN REG 1unit/0.01ml Soln (100units/ml) SC SCH ×4 (06:00→18:00)
[2020-05-04] MEDS: ACCU-CHEK COMFORT CURVE STRIP VI SCH ×4 (06:00→18:07)
[2020-05-04] MEDS: AMPICILLIN SOD 2 GM in SODIUM CHL 0.9% 100 ML IV SCH ×5 (06:00→18:00)
[2020-05-04] MEDS: FREE WATER GT SCH ×6 (06:00→22:20)
[2020-05-04] MEDS: AMIODARONE 450mg/250ml AE 250 ML IV SCH ×2 (06:15→21:15)
[2020-05-04] MEDS: ALBUTEROL SULF 2.5 MG/0.5ML(0.5%) NEB SOLN NEB SCH ×3 (06:50→22:42)
[2020-05-04] MEDS: BUDESONIDE (INHALATION) 0.5 MG/2 ML NEB NEB SCH ×2 (06:50→22:42)
[2020-05-04] MEDS: PHENYLEPHRINE IV 250 ML IV SCH ×2 (08:05→16:25)
[2020-05-04] MEDS: ZINC SULFATE 220mg CAP or TAB PO SCH (08:32)
[2020-05-04] MEDS: SODIUM CHLOR 0.9% PF (SALINE LOCK) 10ML VIAL/SYR IV SCH ×2 (08:32→22:20)
[2020-05-04] MEDS: PANTOPRAZOLE 40 MG/10 ML VIAL INJ IV SCH (08:32)
[2020-05-04] MEDS: QUEtiapine FUMARATE 25 MG TAB PO SCH ×2 (08:33→22:21)
[2020-05-04] MEDS: ASCORBIC ACID 1,000 MG TAB PO SCH (08:33)
[2020-05-04] MEDS: ATENOLOL 50 MG TAB PO SCH (08:33)
[2020-05-04] MEDS: ENOXAPARIN SOD 80 MG/0.8ML SYRINGE SC SCH (08:34)
[2020-05-04] MEDS: CHOLECALCIFEROL (VITD3) 2,000 UNIT CAP/TAB PO SCH (08:34)
[2020-05-04] MEDS: INSULIN LANTUS (GLARGINE) 1 /0.01ml (100units/ml) SC SCH ×2 (10:00→22:00)
[2020-05-04] MEDS: PROPOFOL 100 ML IV SCH (11:45)
[2020-05-04] MEDS: NOREPINEPHRINE 8 MG/250ML KIT 250 ML IV SCH (11:45)
[2020-05-04] MEDS: DOPamine 1600MCG/ML D5W 250 ML IV SCH (14:15)
[2020-05-04] MEDS: ACETAMINOPHEN 325 MG TAB PO PRN (16:20)
[2020-05-04] MEDS: D5W 5% 1,000 ML IV SCH (21:00)
[2020-05-04] MEDS: ATORVASTATIN 20 MG TAB PO SCH (22:21)
[2020-05-05] VITALS (29 sets, daily range): BP systolic 91–134; BP diastolic 42–96
[2020-05-05] MEDS: PHENYLEPHRINE IV 250 ML IV SCH ×3 (00:45→17:25)
[2020-05-05] MEDS: Glucerna 1.2 Cal 1Liter BOTTLE GT SCH ×6 (02:24→22:00)
[2020-05-05] MEDS: FREE WATER GT SCH ×6 (02:24→22:00)
[2020-05-05 04:53] LABS: Basophils # (auto) 0 10 ^3/uL (0-0.2); Basophils % (auto) 0.2 % (0.0-2.0); Eosinophils # (auto) 0.1 10 ^3/uL (0-0.8); Eosinophils % (auto) 0.6 % (0.0-7.0); Hemoglobin 10.4 g/dL (13.5-17.5); Lymphocytes # (auto) 1.6 10 ^3/uL (0.4-5.4); Lymphocytes % (auto) 7.3 % (10.0-50.0); Mean Corpuscular Hemoglobin 28.6 pg (28.0-32.0); Mean Corpuscular Hgb Conc. 32.6 g/dL (32.0-36.0); Mean Corpuscular Volume 87.9 fL (80.0-100.0); Monocytes # (auto) 0.8 10 ^3/uL (0-1.3); Monocytes % (auto) 3.7 % (0.0-12.0); Neutrophils # (auto) 19.8 10 ^3/uL (1.6-8.6); Neutrophils % (auto) 88.2 % (37.0-80.0); Platelet Count (auto) 211 10^3/uL (140-450); Red Blood Cells 3.64 10^6/uL (4.5-5.90); Red Cell Distribution Width 15.7 % (11.8-14.3); White Blood Cell 22.5 10^3/uL (4.4-10.8)
[2020-05-05] MEDS: DOPamine 1600MCG/ML D5W 250 ML IV SCH ×2 (04:55→19:35)
[2020-05-05 05:06] LABS: Calcium 7.8 mg/dL (8.5-10.1); Magnesium 2.3 mg/dL (1.6-2.6); Potassium 4.2 mmol/L (3.5-5.1)
[2020-05-05 05:08] LABS: BUN/Creatinine Ratio 33.3
[2020-05-05] MEDS: InsuLIN REG 1unit/0.01ml Soln (100units/ml) SC SCH ×4 (06:00→18:12)
[2020-05-05] MEDS: ACCU-CHEK COMFORT CURVE STRIP VI SCH ×4 (06:00→17:34)
[2020-05-05] MEDS: AMPICILLIN SOD 2 GM in SODIUM CHL 0.9% 100 ML IV SCH ×3 (06:00)
[2020-05-05] MEDS: BUDESONIDE (INHALATION) 0.5 MG/2 ML NEB NEB SCH ×2 (06:35→20:23)
[2020-05-05] MEDS: ALBUTEROL SULF 2.5 MG/0.5ML(0.5%) NEB SOLN NEB SCH ×3 (06:35→20:23)
[2020-05-05] MEDS: ACETAMINOPHEN 325 MG TAB PO PRN (06:38)
[2020-05-05] MEDS: NOREPINEPHRINE 8 MG/250ML KIT 250 ML IV SCH (08:12)
[2020-05-05] MEDS: SODIUM CHLOR 0.9% PF (SALINE LOCK) 10ML VIAL/SYR IV SCH ×2 (09:50→22:00)
[2020-05-05] MEDS: D5W 5% 1,000 ML IV SCH (10:00)
[2020-05-05] MEDS ORDERED: ASCORBIC ACID 500 MG TAB ONE (10:37)
[2020-05-05] MEDS: MORPHINE SULF INJ 2 MG/ML SYRINGE 1ML IV PRN (11:00)
[2020-05-05] MEDS: PANTOPRAZOLE 40 MG/10 ML VIAL INJ IV SCH (11:13)
[2020-05-05] MEDS: ZINC SULFATE 220mg CAP or TAB PO SCH (11:13)
[2020-05-05] MEDS: ATENOLOL 50 MG TAB PO SCH (11:14)
[2020-05-05] MEDS: QUEtiapine FUMARATE 25 MG TAB PO SCH ×2 (11:14→22:00)
[2020-05-05] MEDS: INSULIN LANTUS (GLARGINE) 1 /0.01ml (100units/ml) SC SCH ×2 (11:15→22:00)
[2020-05-05] MEDS: CHOLECALCIFEROL (VITD3) 2,000 UNIT CAP/TAB PO SCH (11:15)
[2020-05-05] MEDS: ASCORBIC ACID 1,000 MG TAB PO SCH (11:15)
[2020-05-05] MEDS: ENOXAPARIN SOD 80 MG/0.8ML SYRINGE SC SCH (11:16)
[2020-05-05] MEDS ORDERED: VANCOMYCIN PER PHARMACY 0 MG IV SCH (12:15)
[2020-05-05] MEDS ORDERED: VANCOMYCIN 1GM/250ML 250 ML IV ONE (12:15)
[2020-05-05] MEDS: AMIODARONE 450mg/250ml AE 250 ML IV SCH (12:30)
[2020-05-05] MEDS: PROPOFOL 100 ML IV SCH (14:10)
[2020-05-05] MEDS: MEROPENEM 1GM IVPB 100 ML IV SCH ×2 (14:13→22:00)
[2020-05-05] MEDS: ATORVASTATIN 20 MG TAB PO SCH (22:00)
[2020-05-06] VITALS (40 sets, daily range): BP systolic 96–175; BP diastolic 50–75
[2020-05-06] MEDS: PHENYLEPHRINE IV 250 ML IV SCH ×3 (01:45→18:25)
[2020-05-06] MEDS: Glucerna 1.2 Cal 1Liter BOTTLE GT SCH ×3 (02:13→10:00)
[2020-05-06] MEDS: FREE WATER GT SCH ×6 (02:13→22:02)
[2020-05-06] MEDS: AMIODARONE 450mg/250ml AE 250 ML IV SCH ×2 (03:15→11:30)
[2020-05-06 05:40] LABS: Basophils # (auto) 0.1 10 ^3/uL (0-0.2); Basophils % (auto) 0.3 % (0.0-2.0); Eosinophils # (auto) 0.3 10 ^3/uL (0-0.8); Eosinophils % (auto) 1.2 % (0.0-7.0); Hematocrit 30.2 % (41.0-53.0); Hemoglobin 9.7 g/dL (13.5-17.5); Lymphocytes # (auto) 2.1 10 ^3/uL (0.4-5.4); Mean Corpuscular Hemoglobin 28.2 pg (28.0-32.0); Mean Corpuscular Hgb Conc. 32.2 g/dL (32.0-36.0); Mean Corpuscular Volume 87.5 fL (80.0-100.0); Monocytes % (auto) 4.5 % (0.0-12.0); Neutrophils # (auto) 17.8 10 ^3/uL (1.6-8.6); Platelet Count (auto) 224 10^3/uL (140-450); Red Blood Cells 3.45 10^6/uL (4.5-5.90); Red Cell Distribution Width 15.5 % (11.8-14.3); White Blood Cell 21.2 10^3/uL (4.4-10.8)
[2020-05-06 05:58] LABS: Calcium 7.6 mg/dL (8.5-10.1); Magnesium 2.1 mg/dL (1.6-2.6); Potassium 3.8 mmol/L (3.5-5.1)
[2020-05-06] MEDS: ACCU-CHEK COMFORT CURVE STRIP VI SCH ×5 (06:07→23:00)
[2020-05-06] MEDS: MEROPENEM 1GM IVPB 100 ML IV SCH ×3 (06:07→21:57)
[2020-05-06] MEDS: MORPHINE SULF INJ 2 MG/ML SYRINGE 1ML IV PRN (06:29)
[2020-05-06] MEDS: InsuLIN REG 1unit/0.01ml Soln (100units/ml) SC SCH ×5 (07:02→23:00)
[2020-05-06] MEDS: ALBUTEROL SULF 2.5 MG/0.5ML(0.5%) NEB SOLN NEB SCH ×2 (08:10→22:18)
[2020-05-06] MEDS: BUDESONIDE (INHALATION) 0.5 MG/2 ML NEB NEB SCH ×2 (08:10→22:18)
[2020-05-06] MEDS: INSULIN LANTUS (GLARGINE) 1 /0.01ml (100units/ml) SC SCH ×2 (10:00→22:16)
[2020-05-06] MEDS: QUEtiapine FUMARATE 25 MG TAB PO SCH ×2 (10:00→21:58)
[2020-05-06] MEDS: ATENOLOL 50 MG TAB PO SCH (10:00)
[2020-05-06] MEDS: ZINC SULFATE 220mg CAP or TAB PO SCH (10:00)
[2020-05-06] MEDS: ASCORBIC ACID 1,000 MG TAB PO SCH (10:00)
[2020-05-06] MEDS: ENOXAPARIN SOD 80 MG/0.8ML SYRINGE SC SCH (10:00)
[2020-05-06] MEDS: PANTOPRAZOLE 40 MG/10 ML VIAL INJ IV SCH (10:00)
[2020-05-06] MEDS: CHOLECALCIFEROL (VITD3) 2,000 UNIT CAP/TAB PO SCH (10:00)
[2020-05-06] MEDS: SODIUM CHLOR 0.9% PF (SALINE LOCK) 10ML VIAL/SYR IV SCH ×2 (10:00→22:02)
[2020-05-06] MEDS: DOPamine 1600MCG/ML D5W 250 ML IV SCH (10:15)
[2020-05-06] MEDS: D5W 5% 1,000 ML IV SCH (11:00)
[2020-05-06] MEDS ORDERED: Glucerna 1.2 Cal 1Liter BOTTLE GT SCH (11:30)
[2020-05-06] MEDS: NOREPINEPHRINE 8 MG/250ML KIT 250 ML IV SCH (11:45)
[2020-05-06] MEDS: PROPOFOL 100 ML IV SCH (11:45)
[2020-05-06] MEDS: VANCOMYCIN 1GM/250ML 250 ML IV SCH ×2 (12:30)
[2020-05-06] MEDS: ACETAMINOPHEN 325 MG TAB PO PRN (18:15)
[2020-05-06] MEDS: ATORVASTATIN 20 MG TAB PO SCH (21:58)
[2020-05-07] VITALS (50 sets, daily range): BP systolic 96–147; BP diastolic 32–67
[2020-05-07] MEDS: DOPamine 1600MCG/ML D5W 250 ML IV SCH ×2 (00:55→15:35)
[2020-05-07] MEDS: FREE WATER GT SCH ×7 (01:49→23:17)
[2020-05-07] MEDS: VANCOMYCIN 1GM/250ML 250 ML IV SCH ×3 (01:49→23:06)
[2020-05-07] MEDS: PHENYLEPHRINE IV 250 ML IV SCH ×3 (01:50→19:25)
[2020-05-07] MEDS: AMIODARONE 450mg/250ml AE 250 ML IV SCH (02:06)
[2020-05-07 04:42] LABS: Basophils # (auto) 0.1 10 ^3/uL (0-0.2); Basophils % (auto) 0.4 % (0.0-2.0); Eosinophils # (auto) 0.2 10 ^3/uL (0-0.8); Hematocrit 25.7 % (41.0-53.0); Hemoglobin 8.6 g/dL (13.5-17.5); Lymphocytes # (auto) 1.9 10 ^3/uL (0.4-5.4); Lymphocytes % (auto) 11.2 % (10.0-50.0); Mean Corpuscular Hemoglobin 29.1 pg (28.0-32.0); Mean Corpuscular Hgb Conc. 33.5 g/dL (32.0-36.0); Mean Corpuscular Volume 86.9 fL (80.0-100.0); Monocytes # (auto) 0.9 10 ^3/uL (0-1.3); Monocytes % (auto) 5.6 % (0.0-12.0); Neutrophils # (auto) 13.8 10 ^3/uL (1.6-8.6); Neutrophils % (auto) 81.8 % (37.0-80.0); Platelet Count (auto) 234 10^3/uL (140-450); Red Blood Cells 2.96 10^6/uL (4.5-5.90); Red Cell Distribution Width 15.9 % (11.8-14.3); White Blood Cell 16.8 10^3/uL (4.4-10.8)
[2020-05-07 05:02] LABS: Calcium 7.4 mg/dL (8.5-10.1); Potassium 3.9 mmol/L (3.5-5.1)
[2020-05-07 05:05] LABS: BUN/Creatinine Ratio 32.7
[2020-05-07] MEDS: MEROPENEM 1GM IVPB 100 ML IV SCH ×3 (05:38→21:34)
[2020-05-07] MEDS: ACCU-CHEK COMFORT CURVE STRIP VI SCH ×4 (05:44→23:09)
[2020-05-07] MEDS: InsuLIN REG 1unit/0.01ml Soln (100units/ml) SC SCH ×4 (05:45→23:08)
[2020-05-07] MEDS: ALBUTEROL SULF 2.5 MG/0.5ML(0.5%) NEB SOLN NEB SCH ×3 (06:30→18:50)
[2020-05-07] MEDS: BUDESONIDE (INHALATION) 0.5 MG/2 ML NEB NEB SCH ×2 (06:30→18:50)
[2020-05-07] MEDS: D5W 5% 1,000 ML IV SCH (09:00)
[2020-05-07] MEDS: SODIUM CHLOR 0.9% PF (SALINE LOCK) 10ML VIAL/SYR IV SCH ×2 (09:46→21:50)
[2020-05-07] MEDS: PANTOPRAZOLE 40 MG/10 ML VIAL INJ IV SCH (09:46)
[2020-05-07] MEDS: ZINC SULFATE 220mg CAP or TAB PO SCH (09:46)
[2020-05-07] MEDS: QUEtiapine FUMARATE 25 MG TAB PO SCH ×2 (09:46→21:35)
[2020-05-07] MEDS: ATENOLOL 50 MG TAB PO SCH (09:46)
[2020-05-07] MEDS: ASCORBIC ACID 1,000 MG TAB PO SCH (09:47)
[2020-05-07] MEDS: INSULIN LANTUS (GLARGINE) 1 /0.01ml (100units/ml) SC SCH ×2 (09:47→21:50)
[2020-05-07] MEDS: CHOLECALCIFEROL (VITD3) 2,000 UNIT CAP/TAB PO SCH (09:47)
[2020-05-07] MEDS: ENOXAPARIN SOD 80 MG/0.8ML SYRINGE SC SCH (09:48)
[2020-05-07] MEDS: PROPOFOL 100 ML IV SCH (11:45)
[2020-05-07] MEDS: NOREPINEPHRINE 8 MG/250ML KIT 250 ML IV SCH (11:45)
[2020-05-07] MEDS: ATORVASTATIN 20 MG TAB PO SCH (21:35)
[2020-05-08] VITALS (33 sets, daily range): BP systolic 99–139; BP diastolic 33–64
[2020-05-08] MEDS: PHENYLEPHRINE IV 250 ML IV SCH ×3 (00:23→20:25)
[2020-05-08] MEDS: InsuLIN REG 1unit/0.01ml Soln (100units/ml) SC SCH ×4 (06:00→23:00)
[2020-05-08] MEDS: D5W 5% 1,000 ML IV SCH (06:06)
[2020-05-08] MEDS: FREE WATER GT SCH ×5 (06:07→22:03)
[2020-05-08] MEDS: MEROPENEM 1GM IVPB 100 ML IV SCH ×3 (06:07→22:21)
[2020-05-08] MEDS: ACCU-CHEK COMFORT CURVE STRIP VI SCH ×4 (06:08→23:00)
[2020-05-08 06:09] LABS: Basophils # (auto) 0.1 10 ^3/uL (0-0.2); Hemoglobin 8.4 g/dL (13.5-17.5); Neutrophils # (auto) 12.3 10 ^3/uL (1.6-8.6); Red Cell Distribution Width 15.9 % (11.8-14.3)
[2020-05-08 06:14] LABS: Basophils % (auto) 0.4 % (0.0-2.0); Eosinophils # (auto) 0.1 10 ^3/uL (0-0.8); Eosinophils % (auto) 0.7 % (0.0-7.0); Hematocrit 25.3 % (41.0-53.0); Lymphocytes # (auto) 1.6 10 ^3/uL (0.4-5.4); Lymphocytes % (auto) 10.9 % (10.0-50.0); Mean Corpuscular Hemoglobin 28.7 pg (28.0-32.0); Mean Corpuscular Volume 86.9 fL (80.0-100.0); Monocytes # (auto) 0.8 10 ^3/uL (0-1.3); Monocytes % (auto) 5.1 % (0.0-12.0); Neutrophils % (auto) 82.9 % (37.0-80.0); Platelet Count (auto) 295 10^3/uL (140-450); Red Blood Cells 2.92 10^6/uL (4.5-5.90); White Blood Cell 14.9 10^3/uL (4.4-10.8)
[2020-05-08] MEDS: DOPamine 1600MCG/ML D5W 250 ML IV SCH ×2 (06:15→20:55)
[2020-05-08 06:34] LABS: Potassium 3.8 mmol/L (3.5-5.1)
[2020-05-08 06:42] LABS: BUN/Creatinine Ratio 32.9; Calcium 7.6 mg/dL (8.5-10.1); Magnesium 1.9 mg/dL (1.6-2.6)
[2020-05-08] MEDS: ALBUTEROL SULF 2.5 MG/0.5ML(0.5%) NEB SOLN NEB SCH ×3 (07:05→19:31)
[2020-05-08] MEDS: BUDESONIDE (INHALATION) 0.5 MG/2 ML NEB NEB SCH ×2 (07:05→19:31)
[2020-05-08] MEDS: PANTOPRAZOLE 40 MG/10 ML VIAL INJ IV SCH (10:00)
[2020-05-08] MEDS: QUEtiapine FUMARATE 25 MG TAB PO SCH ×2 (10:00→22:15)
[2020-05-08] MEDS: SODIUM CHLOR 0.9% PF (SALINE LOCK) 10ML VIAL/SYR IV SCH ×2 (10:00→22:03)
[2020-05-08] MEDS: ATENOLOL 50 MG TAB PO SCH (10:00)
[2020-05-08] MEDS: AMIODARONE HCL 200 MG TAB PO SCH ×2 (10:00→22:03)
[2020-05-08] MEDS: INSULIN LANTUS (GLARGINE) 1 /0.01ml (100units/ml) SC SCH ×2 (10:00→22:00)
[2020-05-08] MEDS: ZINC SULFATE 220mg CAP or TAB PO SCH (10:00)
[2020-05-08] MEDS: CHOLECALCIFEROL (VITD3) 2,000 UNIT CAP/TAB PO SCH (10:15)
[2020-05-08] MEDS: ENOXAPARIN SOD 80 MG/0.8ML SYRINGE SC SCH (10:15)
[2020-05-08] MEDS: ASCORBIC ACID 1,000 MG TAB PO SCH (10:15)
[2020-05-08] MEDS: VANCOMYCIN 1GM/250ML 250 ML IV SCH ×2 (11:44→23:27)
[2020-05-08] MEDS: PROPOFOL 100 ML IV SCH (11:45)
[2020-05-08] MEDS: NOREPINEPHRINE 8 MG/250ML KIT 250 ML IV SCH (11:45)
[2020-05-08] MEDS ORDERED: DEXTROSE (50%) 50ML SYRG IV PRN (16:00)
[2020-05-08] MEDS: ATORVASTATIN 20 MG TAB PO SCH (22:04)
[2020-05-08] MEDS: LORazepam 2MG/ML-1ML VIAL IV PRN (22:24)
[2020-05-09] VITALS (29 sets, daily range): BP systolic 117–160; BP diastolic 30–85
[2020-05-09] MEDS: FREE WATER GT SCH ×6 (02:20→23:00)
[2020-05-09] MEDS: PHENYLEPHRINE IV 250 ML IV SCH ×3 (04:45→21:25)
[2020-05-09] MEDS: InsuLIN REG 1unit/0.01ml Soln (100units/ml) SC SCH ×3 (05:59→18:00)
[2020-05-09] MEDS: ALBUTEROL SULF 2.5 MG/0.5ML(0.5%) NEB SOLN NEB SCH ×2 (06:00→22:00)
[2020-05-09] MEDS: MEROPENEM 1GM IVPB 100 ML IV SCH ×3 (06:01→22:56)
[2020-05-09] MEDS: ACCU-CHEK COMFORT CURVE STRIP VI SCH ×3 (06:02→18:00)
[2020-05-09] MEDS: BUDESONIDE (INHALATION) 0.5 MG/2 ML NEB NEB SCH ×2 (07:32→22:33)
[2020-05-09] MEDS: ASCORBIC ACID 1,000 MG TAB PO SCH (10:00)
[2020-05-09] MEDS: ATENOLOL 50 MG TAB PO SCH (10:00)
[2020-05-09] MEDS: ZINC SULFATE 220mg CAP or TAB PO SCH (10:00)
[2020-05-09] MEDS: SODIUM CHLOR 0.9% PF (SALINE LOCK) 10ML VIAL/SYR IV SCH ×2 (10:00→23:00)
[2020-05-09] MEDS: ENOXAPARIN SOD 80 MG/0.8ML SYRINGE SC SCH (10:00)
[2020-05-09] MEDS: QUEtiapine FUMARATE 25 MG TAB PO SCH ×2 (10:00→22:59)
[2020-05-09] MEDS: AMIODARONE HCL 200 MG TAB PO SCH ×2 (10:00→22:59)
[2020-05-09] MEDS: CHOLECALCIFEROL (VITD3) 2,000 UNIT CAP/TAB PO SCH (10:00)
[2020-05-09] MEDS: PANTOPRAZOLE 40 MG/10 ML VIAL INJ IV SCH (10:00)
[2020-05-09] MEDS: INSULIN LANTUS (GLARGINE) 1 /0.01ml (100units/ml) SC SCH ×2 (10:05→22:59)
[2020-05-09] MEDS: DOPamine 1600MCG/ML D5W 250 ML IV SCH (11:35)
[2020-05-09] MEDS: PROPOFOL 100 ML IV SCH (11:45)
[2020-05-09] MEDS: NOREPINEPHRINE 8 MG/250ML KIT 250 ML IV SCH (11:45)
[2020-05-09] MEDS: VANCOMYCIN 1GM/250ML 250 ML IV SCH (11:50)
[2020-05-09] MEDS: ATORVASTATIN 20 MG TAB PO SCH (23:00)
[2020-05-10] VITALS (24 sets, daily range): BP systolic 112–155; BP diastolic 35–69
[2020-05-10] MEDS: VANCOMYCIN 1GM/250ML 250 ML IV SCH ×3 (01:12→18:17)
[2020-05-10] MEDS: ACCU-CHEK COMFORT CURVE STRIP VI SCH ×4 (01:40→18:17)
[2020-05-10] MEDS: InsuLIN REG 1unit/0.01ml Soln (100units/ml) SC SCH ×3 (01:45→18:18)
[2020-05-10] MEDS: FREE WATER GT SCH ×4 (02:00→18:17)
[2020-05-10] MEDS: DOPamine 1600MCG/ML D5W 250 ML IV SCH ×2 (02:15→16:55)
[2020-05-10 03:59] LABS: Hemoglobin 7.7 g/dL (13.5-17.5)
[2020-05-10 04:01] LABS: Hematocrit 22.9 % (41.0-53.0); Mean Corpuscular Hgb Conc. 33.4 g/dL (32.0-36.0); Mean Corpuscular Volume 86.7 fL (80.0-100.0); Platelet Count (auto) 422 10^3/uL (140-450); Red Blood Cells 2.64 10^6/uL (4.5-5.90); White Blood Cell 13.9 10^3/uL (4.4-10.8)
[2020-05-10 04:05] LABS: Basophils % (manual) 0 (0.0-2.0); Blast Cells 0; Eosinophils % (manual) 0 (0-7); Metamyelocytes % 0; Promyelocytes % 0
[2020-05-10 04:21] LABS: Calcium 7.5 mg/dL (8.5-10.1); Magnesium 1.6 mg/dL (1.6-2.6); Potassium 3.5 mmol/L (3.5-5.1)
[2020-05-10 04:23] LABS: BUN/Creatinine Ratio 26.3
[2020-05-10 04:41] LABS: Band Neutrophils % (manual) 18; Lymphocytes % (manual) 21 (10.0-50.0); Monocytes % (manual) 7 (0-12); Myelocytes % 1; Reactive Lymphocytes 1
[2020-05-10] MEDS: PHENYLEPHRINE IV 250 ML IV SCH ×3 (05:45→22:14)
[2020-05-10] MEDS: ALBUTEROL SULF 2.5 MG/0.5ML(0.5%) NEB SOLN NEB SCH ×3 (07:45→18:59)
[2020-05-10] MEDS: BUDESONIDE (INHALATION) 0.5 MG/2 ML NEB NEB SCH ×2 (07:45→18:59)
[2020-05-10] MEDS: PANTOPRAZOLE 40 MG/10 ML VIAL INJ IV SCH (10:00)
[2020-05-10] MEDS: QUEtiapine FUMARATE 25 MG TAB PO SCH ×2 (10:15→22:12)
[2020-05-10] MEDS: ASCORBIC ACID 1,000 MG TAB PO SCH (10:15)
[2020-05-10] MEDS: ENOXAPARIN SOD 80 MG/0.8ML SYRINGE SC SCH (10:15)
[2020-05-10] MEDS: AMIODARONE HCL 200 MG TAB PO SCH ×2 (10:15→22:10)
[2020-05-10] MEDS: CHOLECALCIFEROL (VITD3) 2,000 UNIT CAP/TAB PO SCH (10:15)
[2020-05-10] MEDS: ZINC SULFATE 220mg CAP or TAB PO SCH (10:15)
[2020-05-10] MEDS: SODIUM CHLOR 0.9% PF (SALINE LOCK) 10ML VIAL/SYR IV SCH ×2 (10:15→22:10)
[2020-05-10] MEDS: ATENOLOL 50 MG TAB PO SCH (10:15)
[2020-05-10] MEDS: PROPOFOL 100 ML IV SCH (11:45)
[2020-05-10] MEDS: NOREPINEPHRINE 8 MG/250ML KIT 250 ML IV SCH (11:45)
[2020-05-10] MEDS: INSULIN LANTUS (GLARGINE) 1 /0.01ml (100units/ml) SC SCH ×2 (12:00→21:47)
[2020-05-10] MEDS: MEROPENEM 1GM IVPB 100 ML IV SCH ×2 (14:28→22:09)
[2020-05-10] MEDS: ATORVASTATIN 20 MG TAB PO SCH (22:11)
[2020-05-10] MEDS: ENOXAPARIN SOD 100 MG/1 ML SYRINGE SC SCH (22:12)
[2020-05-11] VITALS (23 sets, daily range): BP systolic 99–130; BP diastolic 43–58
[2020-05-11] MEDS: PHENYLEPHRINE IV 250 ML IV SCH ×3 (03:11→23:25)
[2020-05-11 05:22] LABS: Hemoglobin 8.4 g/dL (13.5-17.5)
[2020-05-11 05:26] LABS: Hematocrit 25.5 % (41.0-53.0); Mean Corpuscular Hemoglobin 28.4 pg (28.0-32.0); Mean Corpuscular Hgb Conc. 32.9 g/dL (32.0-36.0); Mean Corpuscular Volume 86.5 fL (80.0-100.0); Platelet Count (auto) 546 10^3/uL (140-450); Red Blood Cells 2.95 10^6/uL (4.5-5.90)
[2020-05-11 05:31] LABS: Basophils % (manual) 0 (0.0-2.0); Blast Cells 0; Eosinophils % (manual) 0 (0-7); Metamyelocytes % 0; Promyelocytes % 0; Reactive Lymphocytes 0
[2020-05-11 05:41] LABS: BUN/Creatinine Ratio 38.5; Calcium 6.3 mg/dL (8.5-10.1); Magnesium 1.6 mg/dL (1.6-2.6); Potassium 3.1 mmol/L (3.5-5.1)
[2020-05-11] MEDS: InsuLIN REG 1unit/0.01ml Soln (100units/ml) SC SCH ×5 (05:50→23:48)
[2020-05-11 05:52] LABS: Band Neutrophils % (manual) 21; Lymphocytes % (manual) 12 (10.0-50.0); Monocytes % (manual) 8 (0-12); Myelocytes % 5
[2020-05-11] MEDS: ALBUTEROL SULF 2.5 MG/0.5ML(0.5%) NEB SOLN NEB SCH ×3 (06:00→19:02)
[2020-05-11] MEDS: FREE WATER GT SCH ×6 (06:01→21:23)
[2020-05-11] MEDS: ACCU-CHEK COMFORT CURVE STRIP VI SCH ×5 (06:01→23:48)
[2020-05-11] MEDS: MEROPENEM 1GM IVPB 100 ML IV SCH ×3 (06:02→21:23)
[2020-05-11] MEDS: BUDESONIDE (INHALATION) 0.5 MG/2 ML NEB NEB SCH ×2 (07:21→19:02)
[2020-05-11] MEDS: DOPamine 1600MCG/ML D5W 250 ML IV SCH ×2 (07:35→22:15)
[2020-05-11] MEDS: PANTOPRAZOLE 40 MG/10 ML VIAL INJ IV SCH (10:00)
[2020-05-11] MEDS: VANCOMYCIN 1GM/250ML 250 ML IV SCH (10:12)
[2020-05-11] MEDS: ZINC SULFATE 220mg CAP or TAB PO SCH (10:13)
[2020-05-11] MEDS: SODIUM CHLOR 0.9% PF (SALINE LOCK) 10ML VIAL/SYR IV SCH ×2 (10:13→21:23)
[2020-05-11] MEDS: QUEtiapine FUMARATE 25 MG TAB PO SCH ×2 (10:15→21:24)
[2020-05-11] MEDS: AMIODARONE HCL 200 MG TAB PO SCH ×2 (10:15→21:23)
[2020-05-11] MEDS: ATENOLOL 50 MG TAB PO SCH (10:16)
[2020-05-11] MEDS: ASCORBIC ACID 1,000 MG TAB PO SCH (10:16)
[2020-05-11] MEDS: CHOLECALCIFEROL (VITD3) 2,000 UNIT CAP/TAB PO SCH (10:17)
[2020-05-11] MEDS: ENOXAPARIN SOD 100 MG/1 ML SYRINGE SC SCH ×2 (10:17→21:24)
[2020-05-11] MEDS ORDERED: BUMETANIDE 2.5mg/10ml (0.25 mg/ml) INJ IV ONE (11:00)
[2020-05-11] MEDS: NOREPINEPHRINE 8 MG/250ML KIT 250 ML IV SCH (11:45)
[2020-05-11] MEDS: PROPOFOL 100 ML IV SCH (11:45)
[2020-05-11] MEDS: POTASSIUM CHL 20MEQ/100ML 100 ML IV SCH ×2 (12:00→13:00)
[2020-05-11] MEDS: INSULIN LANTUS (GLARGINE) 1 /0.01ml (100units/ml) SC SCH ×2 (12:00→21:24)
[2020-05-11] MEDS: ATORVASTATIN 20 MG TAB PO SCH (21:23)
[2020-05-12] VITALS (25 sets, daily range): BP systolic 94–160; BP diastolic 39–101
[2020-05-12] MEDS: FREE WATER GT SCH ×6 (02:06→21:38)
[2020-05-12] MEDS: VANCOMYCIN 1GM/250ML 250 ML IV SCH (02:07)
[2020-05-12 05:07] LABS: Hemoglobin 8.7 g/dL (13.5-17.5)
[2020-05-12 05:08] LABS: Hematocrit 26.3 % (41.0-53.0); Mean Corpuscular Hemoglobin 28.6 pg (28.0-32.0); Mean Corpuscular Hgb Conc. 33.2 g/dL (32.0-36.0); Mean Corpuscular Volume 86.2 fL (80.0-100.0); Platelet Count (auto) 615 10^3/uL (140-450); Red Blood Cells 3.05 10^6/uL (4.5-5.90); Red Cell Distribution Width 17.1 % (11.8-14.3); White Blood Cell 14.9 10^3/uL (4.4-10.8)
[2020-05-12 05:21] LABS: Potassium 3.9 mmol/L (3.5-5.1)
[2020-05-12] MEDS: InsuLIN REG 1unit/0.01ml Soln (100units/ml) SC SCH ×4 (05:26→22:18)
[2020-05-12] MEDS: MEROPENEM 1GM IVPB 100 ML IV SCH ×3 (05:26→21:39)
[2020-05-12] MEDS: ACCU-CHEK COMFORT CURVE STRIP VI SCH ×4 (05:29→23:22)
[2020-05-12 05:51] LABS: Basophils % (manual) 0 (0.0-2.0); Blast Cells 0; Promyelocytes % 0; Reactive Lymphocytes 0
[2020-05-12] MEDS: ALBUTEROL SULF 2.5 MG/0.5ML(0.5%) NEB SOLN NEB SCH ×3 (06:40→18:52)
[2020-05-12] MEDS: BUDESONIDE (INHALATION) 0.5 MG/2 ML NEB NEB SCH ×2 (06:40→18:52)
[2020-05-12 06:42] LABS: Band Neutrophils % (manual) 5; Eosinophils % (manual) 3 (0-7); Lymphocytes % (manual) 16 (10.0-50.0); Monocytes % (manual) 3 (0-12)
[2020-05-12 06:43] LABS: Myelocytes % 1
[2020-05-12] MEDS: PHENYLEPHRINE IV 250 ML IV SCH ×3 (07:45→23:23)
[2020-05-12 09:28] LABS: Metamyelocytes % 0
[2020-05-12] MEDS: CHOLECALCIFEROL (VITD3) 2,000 UNIT CAP/TAB PO SCH (09:40)
[2020-05-12] MEDS: INSULIN LANTUS (GLARGINE) 1 /0.01ml (100units/ml) SC SCH ×2 (09:40→22:18)
[2020-05-12] MEDS: ASCORBIC ACID 1,000 MG TAB PO SCH (09:40)
[2020-05-12] MEDS: ZINC SULFATE 220mg CAP or TAB PO SCH (09:41)
[2020-05-12] MEDS: ATENOLOL 50 MG TAB PO SCH (09:41)
[2020-05-12] MEDS: AMIODARONE HCL 200 MG TAB PO SCH ×2 (09:41→21:39)
[2020-05-12] MEDS: QUEtiapine FUMARATE 25 MG TAB PO SCH ×2 (09:41→21:39)
[2020-05-12] MEDS: SODIUM CHLOR 0.9% PF (SALINE LOCK) 10ML VIAL/SYR IV SCH ×2 (09:42→21:39)
[2020-05-12] MEDS: PANTOPRAZOLE 40 MG/10 ML VIAL INJ IV SCH (09:42)
[2020-05-12] MEDS: ENOXAPARIN SOD 100 MG/1 ML SYRINGE SC SCH ×2 (09:42→21:39)
[2020-05-12] MEDS ORDERED: BUMETANIDE 2.5mg/10ml (0.25 mg/ml) INJ IV ONE (11:45)
[2020-05-12] MEDS: NOREPINEPHRINE 8 MG/250ML KIT 250 ML IV SCH (11:45)
[2020-05-12] MEDS: PROPOFOL 100 ML IV SCH (11:45)
[2020-05-12] MEDS: DOPamine 1600MCG/ML D5W 250 ML IV SCH (12:55)
[2020-05-12] MEDS: ATORVASTATIN 20 MG TAB PO SCH (21:39)
[2020-05-13] VITALS (38 sets, daily range): BP systolic 93–165; BP diastolic 36–71
[2020-05-13] MEDS: FREE WATER GT SCH ×6 (02:07→21:25)
[2020-05-13] MEDS: DOPamine 1600MCG/ML D5W 250 ML IV SCH ×2 (03:35→18:15)
[2020-05-13] MEDS ORDERED: VANCOMYCIN 1GM/250ML 250 ML IV SCH (05:00)
[2020-05-13] MEDS: MEROPENEM 1GM IVPB 100 ML IV SCH ×3 (05:08→21:25)
[2020-05-13] MEDS: InsuLIN REG 1unit/0.01ml Soln (100units/ml) SC SCH ×4 (05:09→23:57)
[2020-05-13 05:10] LABS: Mean Corpuscular Volume 85.5 fL (80.0-100.0)
[2020-05-13 05:12] LABS: Hematocrit 26.3 % (41.0-53.0); Mean Corpuscular Hemoglobin 29.1 pg (28.0-32.0); Mean Corpuscular Hgb Conc. 34.1 g/dL (32.0-36.0); Platelet Count (auto) 636 10^3/uL (140-450); Red Blood Cells 3.07 10^6/uL (4.5-5.90); Red Cell Distribution Width 16.5 % (11.8-14.3); White Blood Cell 16.6 10^3/uL (4.4-10.8)
[2020-05-13 05:44] LABS: Calcium 7.8 mg/dL (8.5-10.1); Magnesium 2.1 mg/dL (1.6-2.6); Potassium 3.9 mmol/L (3.5-5.1)
[2020-05-13 05:46] LABS: BUN/Creatinine Ratio 35.6
[2020-05-13 06:55] LABS: Basophils % (manual) 0 (0.0-2.0); Blast Cells 0; Promyelocytes % 0; Reactive Lymphocytes 0
[2020-05-13] MEDS: ACCU-CHEK COMFORT CURVE STRIP VI SCH ×3 (07:00→18:00)
[2020-05-13] MEDS: ALBUTEROL SULF 2.5 MG/0.5ML(0.5%) NEB SOLN NEB SCH ×3 (07:10→22:11)
[2020-05-13] MEDS: BUDESONIDE (INHALATION) 0.5 MG/2 ML NEB NEB SCH ×2 (07:10→22:11)
[2020-05-13 08:33] LABS: Band Neutrophils % (manual) 10; Eosinophils % (manual) 1 (0-7); Lymphocytes % (manual) 16 (10.0-50.0); Metamyelocytes % 3; Monocytes % (manual) 3 (0-12); Myelocytes % 1
[2020-05-13] MEDS: PHENYLEPHRINE IV 250 ML IV SCH ×2 (08:45→17:05)
[2020-05-13] MEDS: ENOXAPARIN SOD 100 MG/1 ML SYRINGE SC SCH (09:25)
[2020-05-13] MEDS: ZINC SULFATE 220mg CAP or TAB PO SCH (09:25)
[2020-05-13] MEDS: QUEtiapine FUMARATE 25 MG TAB PO SCH ×2 (09:25→21:25)
[2020-05-13] MEDS: ASCORBIC ACID 1,000 MG TAB PO SCH (09:25)
[2020-05-13] MEDS: AMIODARONE HCL 200 MG TAB PO SCH ×2 (09:26→21:25)
[2020-05-13] MEDS: SODIUM CHLOR 0.9% PF (SALINE LOCK) 10ML VIAL/SYR IV SCH ×2 (09:26→21:25)
[2020-05-13] MEDS: PANTOPRAZOLE 40 MG/10 ML VIAL INJ IV SCH (09:26)
[2020-05-13] MEDS: CHOLECALCIFEROL (VITD3) 2,000 UNIT CAP/TAB PO SCH (10:00)
[2020-05-13] MEDS: ATENOLOL 50 MG TAB PO SCH (10:00)
[2020-05-13] MEDS: INSULIN LANTUS (GLARGINE) 1 /0.01ml (100units/ml) SC SCH ×2 (10:15→21:25)
[2020-05-13] MEDS ORDERED: BUMETANIDE 2.5mg/10ml (0.25 mg/ml) INJ IV ONE (10:15)
[2020-05-13] MEDS: NOREPINEPHRINE 8 MG/250ML KIT 250 ML IV SCH (11:45)
[2020-05-13] MEDS: PROPOFOL 100 ML IV SCH (11:45)
[2020-05-13] MEDS: ATORVASTATIN 20 MG TAB PO SCH (21:25)
[2020-05-14] VITALS (41 sets, daily range): BP systolic 91–150; BP diastolic 29–76
[2020-05-14] MEDS: PHENYLEPHRINE IV 250 ML IV SCH ×3 (00:11→18:05)
[2020-05-14] MEDS: ACCU-CHEK COMFORT CURVE STRIP VI SCH ×4 (00:11→18:12)
[2020-05-14] MEDS: FREE WATER GT SCH ×6 (00:12→22:00)
[2020-05-14 04:20] LABS: Hematocrit 27.9 % (41.0-53.0); Hemoglobin 9.2 g/dL (13.5-17.5); Mean Corpuscular Hemoglobin 28.1 pg (28.0-32.0); Mean Corpuscular Hgb Conc. 32.8 g/dL (32.0-36.0); Mean Corpuscular Volume 85.7 fL (80.0-100.0); Platelet Count (auto) 699 10^3/uL (140-450); Red Blood Cells 3.26 10^6/uL (4.5-5.90); Red Cell Distribution Width 16.3 % (11.8-14.3); White Blood Cell 17.7 10^3/uL (4.4-10.8)
[2020-05-14 04:36] LABS: Band Neutrophils % (manual) 0; Basophils % (manual) 0 (0.0-2.0); Blast Cells 0; Metamyelocytes % 0; Promyelocytes % 0; Reactive Lymphocytes 0
[2020-05-14 04:49] LABS: INR 1.1 (0.9-1.15); Partial Thromboplastin Time 31.3 sec (23.0-31.2)
[2020-05-14] MEDS: MEROPENEM 1GM IVPB 100 ML IV SCH ×3 (05:14→22:00)
[2020-05-14 05:22] LABS: Calcium 7.5 mg/dL (8.5-10.1); Magnesium 2.1 mg/dL (1.6-2.6); Potassium 3.9 mmol/L (3.5-5.1)
[2020-05-14 05:31] LABS: Eosinophils % (manual) 3 (0-7); Lymphocytes % (manual) 18 (10.0-50.0); Monocytes % (manual) 5 (0-12); Myelocytes % 2
[2020-05-14] MEDS: InsuLIN REG 1unit/0.01ml Soln (100units/ml) SC SCH ×3 (05:32→18:00)
[2020-05-14] MEDS: BUDESONIDE (INHALATION) 0.5 MG/2 ML NEB NEB SCH ×2 (07:49→22:00)
[2020-05-14] MEDS: ALBUTEROL SULF 2.5 MG/0.5ML(0.5%) NEB SOLN NEB SCH ×3 (07:49→22:00)
[2020-05-14] MEDS: ZINC SULFATE 220mg CAP or TAB PO SCH (08:51)
[2020-05-14] MEDS: AMIODARONE HCL 200 MG TAB PO SCH ×2 (08:51→22:00)
[2020-05-14] MEDS: QUEtiapine FUMARATE 25 MG TAB PO SCH ×2 (08:51→22:00)
[2020-05-14] MEDS: ASCORBIC ACID 1,000 MG TAB PO SCH (08:52)
[2020-05-14] MEDS: DOPamine 1600MCG/ML D5W 250 ML IV SCH ×2 (08:55→23:35)
[2020-05-14] MEDS: ATENOLOL 50 MG TAB PO SCH (10:00)
[2020-05-14] MEDS: SODIUM CHLOR 0.9% PF (SALINE LOCK) 10ML VIAL/SYR IV SCH ×2 (10:00→22:00)
[2020-05-14] MEDS: INSULIN LANTUS (GLARGINE) 1 /0.01ml (100units/ml) SC SCH ×2 (10:00→22:00)
[2020-05-14] MEDS: PANTOPRAZOLE 40 MG/10 ML VIAL INJ IV SCH (10:00)
[2020-05-14] MEDS: CHOLECALCIFEROL (VITD3) 2,000 UNIT CAP/TAB PO SCH (10:00)
[2020-05-14] MEDS: NOREPINEPHRINE 8 MG/250ML KIT 250 ML IV SCH (11:45)
[2020-05-14] MEDS: PROPOFOL 100 ML IV SCH (11:45)
[2020-05-14] MEDS ORDERED: LIDOCAINE 1% HCL (LOCAL ANESTH.) INJ 20ML MDV ONE (11:50)
[2020-05-14] MEDS ORDERED: BUPIVACAINE 0.25% INJ 50ML VIAL ONE (11:50)
[2020-05-14] MEDS ORDERED: fentaNYL CITRATE 100 MCG/2 ML VL ONE (14:04)
[2020-05-14] MEDS ORDERED: MIDAZOLAM HCL 1MG/1ML-2 ML VIAL ONE ×2 (14:04→14:42)
[2020-05-14] MEDS ORDERED: ROCURONIUM 10MG/ML 10ML VIAL IV ONE (14:05)
[2020-05-14] MEDS ORDERED: PROPOFOL 10 MG/ML 20 ML IV ONE (14:06)
[2020-05-14] MEDS ORDERED: GASTROGRAFIN 120 ML SOL ONE (14:48)
[2020-05-14] MEDS ORDERED: BUPIVACAINE HCL 50 ML ONE (14:51)
[2020-05-14] MEDS ORDERED: GASTROGRAFIN 30 ML SOL XX ONE (16:00)
[2020-05-14] MEDS ORDERED: VANCOMYCIN 1GM/250ML 250 ML IV ONE (21:00)
[2020-05-14] MEDS: ENOXAPARIN SOD 100 MG/1 ML SYRINGE SC SCH (22:00)
[2020-05-14] MEDS: ATORVASTATIN 20 MG TAB PO SCH (22:00)
[2020-05-15] VITALS (37 sets, daily range): BP systolic 89–140; BP diastolic 34–96
[2020-05-15] MEDS: ACETAMINOPHEN 325 MG TAB PO PRN (00:22)
[2020-05-15] MEDS: FREE WATER GT SCH ×6 (02:00→22:23)
[2020-05-15] MEDS: PHENYLEPHRINE IV 250 ML IV SCH (02:25)
[2020-05-15 05:18] LABS: Hemoglobin 9.3 g/dL (13.5-17.5)
[2020-05-15 05:19] LABS: Hematocrit 28.3 % (41.0-53.0); Mean Corpuscular Hemoglobin 28.2 pg (28.0-32.0); Mean Corpuscular Hgb Conc. 32.9 g/dL (32.0-36.0); Mean Corpuscular Volume 85.6 fL (80.0-100.0); Platelet Count (auto) 713 10^3/uL (140-450); Red Blood Cells 3.31 10^6/uL (4.5-5.90); Red Cell Distribution Width 16.3 % (11.8-14.3); White Blood Cell 18.9 10^3/uL (4.4-10.8)
[2020-05-15 05:23] LABS: BUN/Creatinine Ratio 33.8; Calcium 7.5 mg/dL (8.5-10.1); Magnesium 2.3 mg/dL (1.6-2.6); Potassium 3.7 mmol/L (3.5-5.1)
[2020-05-15 05:24] LABS: Basophils % (manual) 0 (0.0-2.0); Blast Cells 0; Eosinophils % (manual) 0 (0-7); Myelocytes % 0; Promyelocytes % 0; Reactive Lymphocytes 0
[2020-05-15] MEDS: InsuLIN REG 1unit/0.01ml Soln (100units/ml) SC SCH ×4 (05:49→17:59)
[2020-05-15] MEDS: ACCU-CHEK COMFORT CURVE STRIP VI SCH ×4 (05:49→17:59)
[2020-05-15] MEDS: MEROPENEM 1GM IVPB 100 ML IV SCH (05:49)
[2020-05-15] MEDS: ALBUTEROL SULF 2.5 MG/0.5ML(0.5%) NEB SOLN NEB SCH ×3 (06:40→18:23)
[2020-05-15] MEDS: BUDESONIDE (INHALATION) 0.5 MG/2 ML NEB NEB SCH ×2 (06:40→18:23)
[2020-05-15] MEDS: QUEtiapine FUMARATE 25 MG TAB PO SCH ×2 (09:04→22:24)
[2020-05-15] MEDS: ZINC SULFATE 220mg CAP or TAB PO SCH (09:06)
[2020-05-15] MEDS: ASCORBIC ACID 1,000 MG TAB PO SCH (09:06)
[2020-05-15] MEDS: AMIODARONE HCL 200 MG TAB PO SCH ×2 (09:06→22:23)
[2020-05-15] MEDS: CHOLECALCIFEROL (VITD3) 2,000 UNIT CAP/TAB PO SCH (09:07)
[2020-05-15] MEDS: ENOXAPARIN SOD 100 MG/1 ML SYRINGE SC SCH ×2 (09:07→22:24)
[2020-05-15] MEDS: SODIUM CHLOR 0.9% PF (SALINE LOCK) 10ML VIAL/SYR IV SCH ×2 (09:23→22:23)
[2020-05-15] MEDS: PANTOPRAZOLE 40 MG/10 ML VIAL INJ IV SCH (09:23)
[2020-05-15] MEDS ORDERED: BUMETANIDE 2.5mg/10ml (0.25 mg/ml) INJ IV ONE (09:45)
[2020-05-15] MEDS: ATENOLOL 50 MG TAB PO SCH (10:00)
[2020-05-15] MEDS: INSULIN LANTUS (GLARGINE) 1 /0.01ml (100units/ml) SC SCH ×2 (10:00→22:00)
[2020-05-15] MEDS: HYDROcodone-ACET 5/325MG TAB PO PRN (11:22)
[2020-05-15] MEDS: LORazepam 2MG/ML-1ML VIAL IV PRN (11:32)
[2020-05-15 12:21] LABS: Monocytes % (manual) 4 (0-12)
[2020-05-15 12:22] LABS: Band Neutrophils % (manual) 5
[2020-05-15 12:23] LABS: Lymphocytes % (manual) 11 (10.0-50.0); Metamyelocytes % 1
[2020-05-16] VITALS (39 sets, daily range): BP systolic 86–158; BP diastolic 31–68
[2020-05-16] MEDS: LORazepam 2MG/ML-1ML VIAL IV PRN ×2 (01:32→22:00)
[2020-05-16] MEDS: FREE WATER GT SCH ×6 (02:00→22:33)
[2020-05-16] MEDS: InsuLIN REG 1unit/0.01ml Soln (100units/ml) SC SCH ×4 (06:00→18:28)
[2020-05-16] MEDS: ACCU-CHEK COMFORT CURVE STRIP VI SCH ×4 (06:00→18:00)
[2020-05-16] MEDS: ALBUTEROL SULF 2.5 MG/0.5ML(0.5%) NEB SOLN NEB SCH ×2 (07:06→18:20)
[2020-05-16] MEDS: BUDESONIDE (INHALATION) 0.5 MG/2 ML NEB NEB SCH ×2 (07:06→18:20)
[2020-05-16] MEDS: CHOLECALCIFEROL (VITD3) 2,000 UNIT CAP/TAB PO SCH (10:00)
[2020-05-16] MEDS: SODIUM CHLOR 0.9% PF (SALINE LOCK) 10ML VIAL/SYR IV SCH ×2 (10:00→22:34)
[2020-05-16] MEDS: PANTOPRAZOLE 40 MG/10 ML VIAL INJ IV SCH (10:00)
[2020-05-16] MEDS: INSULIN LANTUS (GLARGINE) 1 /0.01ml (100units/ml) SC SCH ×2 (10:00→22:35)
[2020-05-16] MEDS: ATENOLOL 50 MG TAB PO SCH (10:00)
[2020-05-16] MEDS: ENOXAPARIN SOD 100 MG/1 ML SYRINGE SC SCH ×2 (10:48→22:35)
[2020-05-16] MEDS: AMIODARONE HCL 200 MG TAB PO SCH ×2 (10:49→22:34)
[2020-05-16] MEDS: HYDROcodone-ACET 5/325MG TAB PO PRN (10:49)
[2020-05-16] MEDS: ZINC SULFATE 220mg CAP or TAB PO SCH (10:49)
[2020-05-16] MEDS: QUEtiapine FUMARATE 25 MG TAB PO SCH ×2 (10:49→22:34)
[2020-05-16] MEDS: ASCORBIC ACID 1,000 MG TAB PO SCH (10:51)
[2020-05-16] MEDS: ACETAMINOPHEN 325 MG TAB PO PRN (22:00)
[2020-05-16] MEDS: FAMOTIDINE (10MG/ML) 2ML VL IV SCH (22:34)
[2020-05-17] VITALS (24 sets, daily range): BP systolic 92–160; BP diastolic 46–74
[2020-05-17] MEDS: FREE WATER GT SCH ×6 (02:00→22:13)
[2020-05-17] MEDS: LORazepam 2MG/ML-1ML VIAL IV PRN ×2 (02:09→13:46)
[2020-05-17 04:31] LABS: Basophils # (auto) 0.1 10 ^3/uL (0-0.2); Basophils % (auto) 0.4 % (0.0-2.0); Eosinophils # (auto) 0.3 10 ^3/uL (0-0.8); Eosinophils % (auto) 1.3 % (0.0-7.0); Hematocrit 26.5 % (41.0-53.0); Hemoglobin 8.7 g/dL (13.5-17.5); Lymphocytes # (auto) 2.5 10 ^3/uL (0.4-5.4); Lymphocytes % (auto) 12.9 % (10.0-50.0); Mean Corpuscular Hemoglobin 28.4 pg (28.0-32.0); Mean Corpuscular Hgb Conc. 32.7 g/dL (32.0-36.0); Mean Corpuscular Volume 86.8 fL (80.0-100.0); Monocytes # (auto) 1.1 10 ^3/uL (0-1.3); Monocytes % (auto) 5.6 % (0.0-12.0); Neutrophils # (auto) 15.4 10 ^3/uL (1.6-8.6); Neutrophils % (auto) 79.8 % (37.0-80.0); Nucleated Red Blood Cells % 0.1 %; Platelet Count (auto) 555 10^3/uL (140-450); Red Blood Cells 3.05 10^6/uL (4.5-5.90); White Blood Cell 19.3 10^3/uL (4.4-10.8)
[2020-05-17 04:55] LABS: Calcium 7.2 mg/dL (8.5-10.1); Magnesium 2.3 mg/dL (1.6-2.6); Potassium 3.5 mmol/L (3.5-5.1)
[2020-05-17 04:57] LABS: BUN/Creatinine Ratio 32.9
[2020-05-17] MEDS: HYDROcodone-ACET 5/325MG TAB PO PRN ×2 (05:00→16:44)
[2020-05-17] MEDS: InsuLIN REG 1unit/0.01ml Soln (100units/ml) SC SCH ×4 (06:01→18:13)
[2020-05-17] MEDS: ACCU-CHEK COMFORT CURVE STRIP VI SCH ×4 (06:01→18:12)
[2020-05-17] MEDS: BUDESONIDE (INHALATION) 0.5 MG/2 ML NEB NEB SCH ×2 (06:50→21:50)
[2020-05-17] MEDS: ALBUTEROL SULF 2.5 MG/0.5ML(0.5%) NEB SOLN NEB SCH ×3 (06:50→21:50)
[2020-05-17] MEDS: QUEtiapine FUMARATE 25 MG TAB PO SCH ×2 (07:52→22:14)
[2020-05-17] MEDS: ZINC SULFATE 220mg CAP or TAB PO SCH (07:52)
[2020-05-17] MEDS: AMIODARONE HCL 200 MG TAB PO SCH ×2 (07:52→22:14)
[2020-05-17] MEDS: ASCORBIC ACID 1,000 MG TAB PO SCH (07:52)
[2020-05-17] MEDS: SODIUM CHLOR 0.9% PF (SALINE LOCK) 10ML VIAL/SYR IV SCH ×2 (07:53→22:14)
[2020-05-17] MEDS: FAMOTIDINE (10MG/ML) 2ML VL IV SCH ×2 (07:53→22:13)
[2020-05-17] MEDS: ENOXAPARIN SOD 100 MG/1 ML SYRINGE SC SCH ×2 (07:53→22:14)
[2020-05-17] MEDS: CHOLECALCIFEROL (VITD3) 2,000 UNIT CAP/TAB PO SCH (07:53)
[2020-05-17] MEDS: INSULIN LANTUS (GLARGINE) 1 /0.01ml (100units/ml) SC SCH ×2 (10:00→22:15)
[2020-05-17] MEDS ORDERED: BUMETANIDE 2.5mg/10ml (0.25 mg/ml) INJ IV ONE (11:15)
[2020-05-17] MEDS: ATENOLOL 50 MG TAB PO SCH (13:46)
[2020-05-17] MEDS: Glucerna 1.2 Cal 1Liter BOTTLE GT SCH (16:44)
[2020-05-17 18:24] LABS: Urine Amorphous Crystal FEW /hpf (None Seen); Urine Bacteria MOD /hpf (None Seen); Urine Blood 3+ /uL (Negative); Urine Budding Yeast FEW /hpf (None Seen); Urine Hyaline Cast FEW /lpf (0 - 2); Urine Mucus FEW (None Seen); Urine Specific Gravity 1.014 (1.001-1.035); Urine WBC 24 /hpf (0 - 3)
[2020-05-18] VITALS (27 sets, daily range): BP systolic 95–161; BP diastolic 42–73
[2020-05-18] MEDS: HYDROcodone-ACET 5/325MG TAB PO PRN (01:21)
[2020-05-18] MEDS: FREE WATER GT SCH ×6 (02:03→22:00)
[2020-05-18 05:04] LABS: BUN/Creatinine Ratio 31.2; Calcium 7.2 mg/dL (8.5-10.1); Potassium 3.6 mmol/L (3.5-5.1)
[2020-05-18] MEDS: ACCU-CHEK COMFORT CURVE STRIP VI SCH ×4 (06:22→17:35)
[2020-05-18] MEDS: InsuLIN REG 1unit/0.01ml Soln (100units/ml) SC SCH ×4 (06:28→18:06)
[2020-05-18] MEDS: BUDESONIDE (INHALATION) 0.5 MG/2 ML NEB NEB SCH ×2 (06:30→18:25)
[2020-05-18] MEDS: ALBUTEROL SULF 2.5 MG/0.5ML(0.5%) NEB SOLN NEB SCH ×3 (06:30→18:25)
[2020-05-18] MEDS: ACETAMINOPHEN 325 MG TAB PO PRN (09:30)
[2020-05-18] MEDS: QUEtiapine FUMARATE 25 MG TAB PO SCH ×2 (09:55→22:00)
[2020-05-18] MEDS: AMIODARONE HCL 200 MG TAB PO SCH ×2 (09:55→22:00)
[2020-05-18] MEDS: FAMOTIDINE (10MG/ML) 2ML VL IV SCH ×2 (09:55→22:00)
[2020-05-18] MEDS: ZINC SULFATE 220mg CAP or TAB PO SCH (09:55)
[2020-05-18] MEDS: SODIUM CHLOR 0.9% PF (SALINE LOCK) 10ML VIAL/SYR IV SCH ×2 (09:55→22:00)
[2020-05-18] MEDS: INSULIN LANTUS (GLARGINE) 1 /0.01ml (100units/ml) SC SCH ×2 (09:56→22:00)
[2020-05-18] MEDS: ASCORBIC ACID 1,000 MG TAB PO SCH (09:56)
[2020-05-18] MEDS: CHOLECALCIFEROL (VITD3) 2,000 UNIT CAP/TAB PO SCH (09:56)
[2020-05-18] MEDS: ATENOLOL 50 MG TAB PO SCH (09:56)
[2020-05-18] MEDS: ENOXAPARIN SOD 100 MG/1 ML SYRINGE SC SCH ×2 (09:57→22:00)
[2020-05-18] MEDS ORDERED: FLUCONAZOLE 200MG/100ML 100 ML IV ONE (12:15)
[2020-05-19] VITALS (28 sets, daily range): BP systolic 100–152; BP diastolic 41–74
[2020-05-19] MEDS: FREE WATER GT SCH ×6 (02:00→21:20)
[2020-05-19] MEDS: ACCU-CHEK COMFORT CURVE STRIP VI SCH ×5 (06:00→23:37)
[2020-05-19] MEDS: InsuLIN REG 1unit/0.01ml Soln (100units/ml) SC SCH ×5 (06:00→23:58)
[2020-05-19 06:23] LABS: Basophils # (auto) 0.1 10 ^3/uL (0-0.2); Eosinophils % (auto) 0.7 % (0.0-7.0); Hemoglobin 8.4 g/dL (13.5-17.5); Lymphocytes # (auto) 1.8 10 ^3/uL (0.4-5.4); Monocytes # (auto) 1.1 10 ^3/uL (0-1.3)
[2020-05-19 06:32] LABS: Basophils % (auto) 0.3 % (0.0-2.0); Eosinophils # (auto) 0.1 10 ^3/uL (0-0.8); Hematocrit 24.9 % (41.0-53.0); Lymphocytes % (auto) 8.8 % (10.0-50.0); Mean Corpuscular Hgb Conc. 33.8 g/dL (32.0-36.0); Mean Corpuscular Volume 85.7 fL (80.0-100.0); Monocytes % (auto) 5.5 % (0.0-12.0); Neutrophils # (auto) 17.5 10 ^3/uL (1.6-8.6); Neutrophils % (auto) 84.7 % (37.0-80.0); Platelet Count (auto) 428 10^3/uL (140-450); Red Blood Cells 2.91 10^6/uL (4.5-5.90); Red Cell Distribution Width 16.4 % (11.8-14.3); White Blood Cell 20.7 10^3/uL (4.4-10.8)
[2020-05-19 06:51] LABS: Magnesium 2.1 mg/dL (1.6-2.6); Potassium 3.9 mmol/L (3.5-5.1)
[2020-05-19 06:53] LABS: BUN/Creatinine Ratio 23.4; Calcium 7.3 mg/dL (8.5-10.1)
[2020-05-19] MEDS: ALBUTEROL SULF 2.5 MG/0.5ML(0.5%) NEB SOLN NEB SCH ×3 (06:55→19:48)
[2020-05-19] MEDS: BUDESONIDE (INHALATION) 0.5 MG/2 ML NEB NEB SCH ×2 (06:55→19:48)
[2020-05-19] MEDS: FLUCONAZOLE 200MG/100ML 100 ML IV SCH (08:43)
[2020-05-19] MEDS: ZINC SULFATE 220mg CAP or TAB PO SCH (09:38)
[2020-05-19] MEDS: INSULIN LANTUS (GLARGINE) 1 /0.01ml (100units/ml) SC SCH ×2 (09:38→21:20)
[2020-05-19] MEDS: FAMOTIDINE (10MG/ML) 2ML VL IV SCH ×2 (09:38→21:20)
[2020-05-19] MEDS: SODIUM CHLOR 0.9% PF (SALINE LOCK) 10ML VIAL/SYR IV SCH ×2 (09:38→21:20)
[2020-05-19] MEDS: ASCORBIC ACID 1,000 MG TAB PO SCH (09:39)
[2020-05-19] MEDS: ATENOLOL 50 MG TAB PO SCH (09:39)
[2020-05-19] MEDS: QUEtiapine FUMARATE 25 MG TAB PO SCH ×2 (09:39→21:20)
[2020-05-19] MEDS: AMIODARONE HCL 200 MG TAB PO SCH ×2 (09:39→21:20)
[2020-05-19] MEDS: CHOLECALCIFEROL (VITD3) 2,000 UNIT CAP/TAB PO SCH (09:39)
[2020-05-19] MEDS: ENOXAPARIN SOD 100 MG/1 ML SYRINGE SC SCH ×2 (10:00→21:22)
[2020-05-19] MEDS: Glucerna 1.2 Cal 1Liter BOTTLE GT SCH (20:00)
[2020-05-19] MEDS: LORazepam 2MG/ML-1ML VIAL IV PRN (23:19)
[2020-05-20] VITALS (27 sets, daily range): BP systolic 92–134; BP diastolic 40–63
[2020-05-20] MEDS: FREE WATER GT SCH ×6 (02:00→22:00)
[2020-05-20] MEDS: ACCU-CHEK COMFORT CURVE STRIP VI SCH ×3 (06:15→18:00)
[2020-05-20] MEDS: InsuLIN REG 1unit/0.01ml Soln (100units/ml) SC SCH ×3 (06:16→18:00)
[2020-05-20] MEDS: BUDESONIDE (INHALATION) 0.5 MG/2 ML NEB NEB SCH ×2 (07:25→22:44)
[2020-05-20] MEDS: ALBUTEROL SULF 2.5 MG/0.5ML(0.5%) NEB SOLN NEB SCH ×3 (07:25→22:43)
[2020-05-20] MEDS: QUEtiapine FUMARATE 25 MG TAB PO SCH ×2 (10:00→22:00)
[2020-05-20] MEDS: ENOXAPARIN SOD 100 MG/1 ML SYRINGE SC SCH ×2 (10:00→22:00)
[2020-05-20] MEDS: ATENOLOL 50 MG TAB PO SCH (10:00)
[2020-05-20] MEDS: ASCORBIC ACID 1,000 MG TAB PO SCH (10:00)
[2020-05-20] MEDS: CHOLECALCIFEROL (VITD3) 2,000 UNIT CAP/TAB PO SCH (10:00)
[2020-05-20] MEDS: FAMOTIDINE (10MG/ML) 2ML VL IV SCH ×2 (10:00→22:00)
[2020-05-20] MEDS: ZINC SULFATE 220mg CAP or TAB PO SCH (10:00)
[2020-05-20] MEDS: SODIUM CHLOR 0.9% PF (SALINE LOCK) 10ML VIAL/SYR IV SCH ×2 (10:00→22:00)
[2020-05-20] MEDS: AMIODARONE HCL 200 MG TAB PO SCH ×2 (10:00→22:00)
[2020-05-20] MEDS ORDERED: BUMETANIDE 2.5mg/10ml (0.25 mg/ml) INJ IV ONE (11:00)
[2020-05-20] MEDS: INSULIN LANTUS (GLARGINE) 1 /0.01ml (100units/ml) SC SCH ×2 (11:04→22:00)
[2020-05-20] MEDS: FLUCONAZOLE 200MG/100ML 100 ML IV SCH (11:20)
[2020-05-20] MEDS: MORPHINE SULF INJ 2 MG/ML SYRINGE 1ML IV PRN ×2 (13:06→21:00)
[2020-05-20] MEDS: ACETAMINOPHEN 325 MG TAB PO PRN (17:31)
[2020-05-20] MEDS: LORazepam 2MG/ML-1ML VIAL IV PRN (23:45)
[2020-05-21] VITALS (23 sets, daily range): BP systolic 110–147; BP diastolic 46–64
[2020-05-21] MEDS: MORPHINE SULF INJ 2 MG/ML SYRINGE 1ML IV PRN ×4 (01:03→19:30)
[2020-05-21] MEDS: FREE WATER GT SCH ×6 (01:03→20:47)
[2020-05-21] MEDS: ACETAMINOPHEN 325 MG TAB PO PRN (03:45)
[2020-05-21] MEDS: LORazepam 2MG/ML-1ML VIAL IV PRN ×3 (03:45→23:57)
[2020-05-21 04:55] LABS: Hemoglobin 8.3 g/dL (13.5-17.5)
[2020-05-21 04:57] LABS: Hematocrit 25.3 % (41.0-53.0); Mean Corpuscular Hgb Conc. 32.8 g/dL (32.0-36.0); Mean Corpuscular Volume 85.4 fL (80.0-100.0); Platelet Count (auto) 355 10^3/uL (140-450); Red Blood Cells 2.96 10^6/uL (4.5-5.90); Red Cell Distribution Width 17.1 % (11.8-14.3); White Blood Cell 27.6 10^3/uL (4.4-10.8)
[2020-05-21 05:15] LABS: Potassium 4.5 mmol/L (3.5-5.1)
[2020-05-21 05:19] LABS: BUN/Creatinine Ratio 34.9; Calcium 7.5 mg/dL (8.5-10.1)
[2020-05-21 05:31] LABS: Basophils % (manual) 0 (0.0-2.0); Blast Cells 0; Myelocytes % 0; Promyelocytes % 0; Reactive Lymphocytes 0
[2020-05-21] MEDS: InsuLIN REG 1unit/0.01ml Soln (100units/ml) SC SCH ×5 (05:48→23:56)
[2020-05-21] MEDS: ACCU-CHEK COMFORT CURVE STRIP VI SCH ×5 (05:48→23:57)
[2020-05-21 05:52] LABS: Band Neutrophils % (manual) 1; Eosinophils % (manual) 1 (0-7); Lymphocytes % (manual) 11 (10.0-50.0); Metamyelocytes % 1; Monocytes % (manual) 5 (0-12)
[2020-05-21] MEDS: ALBUTEROL SULF 2.5 MG/0.5ML(0.5%) NEB SOLN NEB SCH ×3 (06:00→19:12)
[2020-05-21] MEDS: BUDESONIDE (INHALATION) 0.5 MG/2 ML NEB NEB SCH ×2 (08:02→19:12)
[2020-05-21] MEDS: Glucerna 1.2 Cal 1Liter BOTTLE GT SCH (08:30)
[2020-05-21] MEDS ORDERED: ASCORBIC ACID 500 MG TAB ONE (08:34)
[2020-05-21] MEDS: FAMOTIDINE (10MG/ML) 2ML VL IV SCH ×2 (09:53→20:47)
[2020-05-21] MEDS: ENOXAPARIN SOD 100 MG/1 ML SYRINGE SC SCH ×2 (09:53→20:47)
[2020-05-21] MEDS: ATENOLOL 50 MG TAB PO SCH (09:53)
[2020-05-21] MEDS: ZINC SULFATE 220mg CAP or TAB PO SCH (09:53)
[2020-05-21] MEDS: QUEtiapine FUMARATE 25 MG TAB PO SCH ×2 (09:53→20:47)
[2020-05-21] MEDS: CHOLECALCIFEROL (VITD3) 2,000 UNIT CAP/TAB PO SCH (09:53)
[2020-05-21] MEDS: ASCORBIC ACID 1,000 MG TAB PO SCH (09:53)
[2020-05-21] MEDS: AMIODARONE HCL 200 MG TAB PO SCH ×2 (09:53→20:47)
[2020-05-21] MEDS: SODIUM CHLOR 0.9% PF (SALINE LOCK) 10ML VIAL/SYR IV SCH ×2 (09:53→20:47)
[2020-05-21] MEDS: FLUCONAZOLE 200MG/100ML 100 ML IV SCH (09:53)
[2020-05-21] MEDS: INSULIN LANTUS (GLARGINE) 1 /0.01ml (100units/ml) SC SCH ×2 (10:00→21:28)
[2020-05-21] MEDS ORDERED: BUMETANIDE 2.5mg/10ml (0.25 mg/ml) INJ IV ONE (14:15)
[2020-05-21] MEDS: MEROPENEM 1GM IVPB 100 ML IV SCH (18:18)
[2020-05-21] MEDS: LINEZOLID 600MG/300ML 300 ML IV SCH (20:47)
[2020-05-22] VITALS (16 sets, daily range): BP systolic 101–172; BP diastolic 45–77
[2020-05-22] MEDS: FREE WATER GT SCH ×6 (02:00→22:00)
[2020-05-22] MEDS: MEROPENEM 1GM IVPB 100 ML IV SCH ×3 (02:00→17:56)
[2020-05-22] MEDS: MORPHINE SULF INJ 2 MG/ML SYRINGE 1ML IV PRN (06:00)
[2020-05-22] MEDS: ACCU-CHEK COMFORT CURVE STRIP VI SCH ×3 (06:00→17:58)
[2020-05-22] MEDS: InsuLIN REG 1unit/0.01ml Soln (100units/ml) SC SCH ×3 (06:00→17:57)
[2020-05-22] MEDS: ALBUTEROL SULF 2.5 MG/0.5ML(0.5%) NEB SOLN NEB SCH ×3 (07:00→22:08)
[2020-05-22] MEDS: BUDESONIDE (INHALATION) 0.5 MG/2 ML NEB NEB SCH ×2 (07:00→22:08)
[2020-05-22] MEDS: FLUCONAZOLE 200MG/100ML 100 ML IV SCH (08:45)
[2020-05-22] MEDS: FAMOTIDINE (10MG/ML) 2ML VL IV SCH ×2 (10:00→21:30)
[2020-05-22] MEDS: SODIUM CHLOR 0.9% PF (SALINE LOCK) 10ML VIAL/SYR IV SCH (10:00)
[2020-05-22] MEDS: ZINC SULFATE 220mg CAP or TAB PO SCH (10:00)
[2020-05-22] MEDS: ENOXAPARIN SOD 100 MG/1 ML SYRINGE SC SCH ×2 (10:00→21:30)
[2020-05-22] MEDS: CHOLECALCIFEROL (VITD3) 2,000 UNIT CAP/TAB PO SCH (10:00)
[2020-05-22] MEDS: ATENOLOL 50 MG TAB PO SCH (10:00)
[2020-05-22] MEDS: AMIODARONE HCL 200 MG TAB PO SCH ×2 (10:00→21:31)
[2020-05-22] MEDS: QUEtiapine FUMARATE 25 MG TAB PO SCH ×2 (10:00→21:31)
[2020-05-22] MEDS: ASCORBIC ACID 1,000 MG TAB PO SCH (10:00)
[2020-05-22] MEDS: LINEZOLID 600MG/300ML 300 ML IV SCH ×2 (10:15→21:31)
[2020-05-22] MEDS ORDERED: BUMETANIDE 2.5mg/10ml (0.25 mg/ml) INJ IV ONE (10:15)
[2020-05-22] MEDS: INSULIN LANTUS (GLARGINE) 1 /0.01ml (100units/ml) SC SCH ×2 (10:50→22:00)
[2020-05-22] MEDS: LORazepam 2MG/ML-1ML VIAL IV PRN (11:20)
[2020-05-22 13:10] LABS: Urine Bacteria FEW /hpf (None Seen); Urine Blood 1+ /uL (Negative); Urine Budding Yeast LOADED /hpf (None Seen); Urine Specific Gravity 1.006 (1.001-1.035); Urine WBC 38 /hpf (0 - 3)
[2020-05-23] VITALS: BP 99/48
[2020-05-23] MEDS: InsuLIN REG 1unit/0.01ml Soln (100units/ml) SC SCH ×4 (00:36→17:28)
[2020-05-23] MEDS: FREE WATER GT SCH ×6 (02:00→23:00)
[2020-05-23] MEDS: MEROPENEM 1GM IVPB 100 ML IV SCH ×3 (02:42→17:08)
[2020-05-23] MEDS: SODIUM CHLOR 0.9% PF (SALINE LOCK) 10ML VIAL/SYR IV SCH ×3 (06:04→23:01)
[2020-05-23] MEDS: ACCU-CHEK COMFORT CURVE STRIP VI SCH ×4 (06:29→17:08)
[2020-05-23] MEDS: BUDESONIDE (INHALATION) 0.5 MG/2 ML NEB NEB SCH ×2 (07:15→19:07)
[2020-05-23] MEDS: ALBUTEROL SULF 2.5 MG/0.5ML(0.5%) NEB SOLN NEB SCH ×3 (07:15→19:07)
[2020-05-23 07:25] LABS: Hematocrit 27.1 % (41.0-53.0); Hemoglobin 9.2 g/dL (13.5-17.5); Mean Corpuscular Hemoglobin 28.7 pg (28.0-32.0); Mean Corpuscular Volume 84.5 fL (80.0-100.0); Platelet Count (auto) 366 10^3/uL (140-450); Red Blood Cells 3.21 10^6/uL (4.5-5.90); Red Cell Distribution Width 16.8 % (11.8-14.3); White Blood Cell 25.6 10^3/uL (4.4-10.8)
[2020-05-23 07:54] LABS: BUN/Creatinine Ratio 32.9; Calcium 7.5 mg/dL (8.5-10.1); Magnesium 2.1 mg/dL (1.6-2.6)
[2020-05-23 08:00] VITALS: BP 110/54
[2020-05-23 08:01] LABS: Band Neutrophils % (manual) 0; Basophils % (manual) 0 (0.0-2.0); Blast Cells 0; Metamyelocytes % 0; Myelocytes % 0; Promyelocytes % 0; Reactive Lymphocytes 0
[2020-05-23] MEDS: LINEZOLID 600MG/300ML 300 ML IV SCH ×2 (10:18→22:59)
[2020-05-23] MEDS: FLUCONAZOLE 200MG/100ML 100 ML IV SCH (10:18)
[2020-05-23] MEDS: FAMOTIDINE (10MG/ML) 2ML VL IV SCH ×2 (10:19→23:00)
[2020-05-23] MEDS: LORazepam 2MG/ML-1ML VIAL IV PRN (10:19)
[2020-05-23] MEDS: AMIODARONE HCL 200 MG TAB PO SCH ×2 (10:24→23:00)
[2020-05-23] MEDS: ASCORBIC ACID 1,000 MG TAB PO SCH (10:24)
[2020-05-23] MEDS: ZINC SULFATE 220mg CAP or TAB PO SCH (10:24)
[2020-05-23] MEDS: ATENOLOL 50 MG TAB PO SCH (10:24)
[2020-05-23] MEDS: QUEtiapine FUMARATE 25 MG TAB PO SCH ×2 (10:24→23:00)
[2020-05-23] MEDS: CHOLECALCIFEROL (VITD3) 2,000 UNIT CAP/TAB PO SCH (10:25)
[2020-05-23] MEDS: ENOXAPARIN SOD 100 MG/1 ML SYRINGE SC SCH ×2 (10:25→23:01)
[2020-05-23] MEDS: INSULIN LANTUS (GLARGINE) 1 /0.01ml (100units/ml) SC SCH ×2 (11:01→23:02)
[2020-05-23 11:18] LABS: Eosinophils % (manual) 1 (0-7); Lymphocytes % (manual) 7 (10.0-50.0); Monocytes % (manual) 2 (0-12)
[2020-05-23 16:00] VITALS: BP 106/0
[2020-05-24] VITALS: BP 118/58
[2020-05-24] MEDS: HYDROcodone-ACET 5/325MG TAB PO PRN (00:12)
[2020-05-24] MEDS: ACCU-CHEK COMFORT CURVE STRIP VI SCH ×4 (00:27→18:57)
[2020-05-24] MEDS: InsuLIN REG 1unit/0.01ml Soln (100units/ml) SC SCH ×4 (00:28→19:07)
[2020-05-24] MEDS: FREE WATER GT SCH ×6 (02:31→22:00)
[2020-05-24] MEDS: MEROPENEM 1GM IVPB 100 ML IV SCH ×3 (02:32→20:35)
[2020-05-24] MEDS: LORazepam 2MG/ML-1ML VIAL IV PRN (02:48)
[2020-05-24] MEDS: ALBUTEROL SULF 2.5 MG/0.5ML(0.5%) NEB SOLN NEB SCH ×3 (07:10→19:30)
[2020-05-24] MEDS: BUDESONIDE (INHALATION) 0.5 MG/2 ML NEB NEB SCH ×2 (07:10→19:30)
[2020-05-24 08:00] VITALS: BP 122/56
[2020-05-24] MEDS: FLUCONAZOLE 200MG/100ML 100 ML IV SCH (10:17)
[2020-05-24] MEDS: LINEZOLID 600MG/300ML 300 ML IV SCH (10:17)
[2020-05-24] MEDS: ENOXAPARIN SOD 100 MG/1 ML SYRINGE SC SCH (10:17)
[2020-05-24] MEDS: SODIUM CHLOR 0.9% PF (SALINE LOCK) 10ML VIAL/SYR IV SCH ×2 (10:18→22:00)
[2020-05-24] MEDS: FAMOTIDINE (10MG/ML) 2ML VL IV SCH (10:18)
[2020-05-24] MEDS: QUEtiapine FUMARATE 25 MG TAB PO SCH (10:28)
[2020-05-24] MEDS: ZINC SULFATE 220mg CAP or TAB PO SCH (10:28)
[2020-05-24] MEDS: AMIODARONE HCL 200 MG TAB PO SCH (10:28)
[2020-05-24] MEDS: ASCORBIC ACID 1,000 MG TAB PO SCH (10:28)
[2020-05-24] MEDS: ATENOLOL 50 MG TAB PO SCH (10:29)
[2020-05-24] MEDS: CHOLECALCIFEROL (VITD3) 2,000 UNIT CAP/TAB PO SCH (10:29)
[2020-05-24] MEDS: INSULIN LANTUS (GLARGINE) 1 /0.01ml (100units/ml) SC SCH ×2 (10:30→23:52)
[2020-05-24] MEDS: MORPHINE SULF INJ 2 MG/ML SYRINGE 1ML IV PRN (13:36)
[2020-05-24 16:00] VITALS: BP 116/59
[2020-05-25] VITALS: BP 135/62
[2020-05-25] MEDS: QUEtiapine FUMARATE 25 MG TAB PO SCH ×3 (00:13→21:59)
[2020-05-25] MEDS: ENOXAPARIN SOD 100 MG/1 ML SYRINGE SC SCH ×3 (00:13→22:00)
[2020-05-25] MEDS: ACCU-CHEK COMFORT CURVE STRIP VI SCH ×5 (00:13→23:43)
[2020-05-25] MEDS: FAMOTIDINE (10MG/ML) 2ML VL IV SCH ×3 (00:14→21:58)
[2020-05-25] MEDS: LINEZOLID 600MG/300ML 300 ML IV SCH ×3 (00:14→21:59)
[2020-05-25] MEDS: AMIODARONE HCL 200 MG TAB PO SCH ×3 (00:14→21:59)
[2020-05-25] MEDS: MEROPENEM 1GM IVPB 100 ML IV SCH ×3 (02:34→17:55)
[2020-05-25] MEDS: FREE WATER GT SCH ×6 (02:34→21:58)
[2020-05-25] MEDS: BUDESONIDE (INHALATION) 0.5 MG/2 ML NEB NEB SCH ×2 (05:45→19:49)
[2020-05-25] MEDS: ALBUTEROL SULF 2.5 MG/0.5ML(0.5%) NEB SOLN NEB SCH ×3 (05:45→19:50)
[2020-05-25] MEDS: InsuLIN REG 1unit/0.01ml Soln (100units/ml) SC SCH ×5 (05:47→23:44)
[2020-05-25 08:00] VITALS: BP 156/71
[2020-05-25] MEDS: FLUCONAZOLE 200MG/100ML 100 ML IV SCH (10:29)
[2020-05-25] MEDS: SODIUM CHLOR 0.9% PF (SALINE LOCK) 10ML VIAL/SYR IV SCH ×2 (10:29→21:59)
[2020-05-25] MEDS: ZINC SULFATE 220mg CAP or TAB PO SCH (10:30)
[2020-05-25] MEDS: CHOLECALCIFEROL (VITD3) 2,000 UNIT CAP/TAB PO SCH (10:31)
[2020-05-25] MEDS: ASCORBIC ACID 1,000 MG TAB PO SCH (10:31)
[2020-05-25] MEDS: ATENOLOL 50 MG TAB PO SCH (10:31)
[2020-05-25] MEDS: INSULIN LANTUS (GLARGINE) 1 /0.01ml (100units/ml) SC SCH ×2 (12:39→22:03)
[2020-05-25 16:00] VITALS: BP 121/48
[2020-05-26] VITALS: BP 143/64
[2020-05-26] MEDS: FREE WATER GT SCH ×6 (01:47→22:02)
[2020-05-26] MEDS: MEROPENEM 1GM IVPB 100 ML IV SCH ×3 (01:53→17:50)
[2020-05-26] MEDS: ACCU-CHEK COMFORT CURVE STRIP VI SCH ×3 (05:53→17:51)
[2020-05-26] MEDS: InsuLIN REG 1unit/0.01ml Soln (100units/ml) SC SCH ×3 (05:53→17:51)
[2020-05-26 06:28] VITALS: BP 169/56
[2020-05-26] MEDS: BUDESONIDE (INHALATION) 0.5 MG/2 ML NEB NEB SCH ×2 (06:28→22:00)
[2020-05-26] MEDS: ALBUTEROL SULF 2.5 MG/0.5ML(0.5%) NEB SOLN NEB SCH ×3 (06:28→22:00)
[2020-05-26 08:00] VITALS: BP 113/46
[2020-05-26] MEDS: FLUCONAZOLE 200MG/100ML 100 ML IV SCH (09:12)
[2020-05-26] MEDS: INSULIN LANTUS (GLARGINE) 1 /0.01ml (100units/ml) SC SCH ×2 (10:00→22:04)
[2020-05-26] MEDS ORDERED: FUROSEMIDE 40 MG/4 ML VIAL IV ONE (10:15)
[2020-05-26] MEDS: LINEZOLID 600MG/300ML 300 ML IV SCH ×2 (12:17→22:03)
[2020-05-26] MEDS: ZINC SULFATE 220mg CAP or TAB PO SCH (12:18)
[2020-05-26] MEDS: CHOLECALCIFEROL (VITD3) 2,000 UNIT CAP/TAB PO SCH (12:18)
[2020-05-26] MEDS: ASCORBIC ACID 1,000 MG TAB PO SCH (12:18)
[2020-05-26] MEDS: QUEtiapine FUMARATE 25 MG TAB PO SCH ×2 (12:18→22:03)
[2020-05-26] MEDS: ATENOLOL 50 MG TAB PO SCH (12:20)
[2020-05-26] MEDS: ENOXAPARIN SOD 100 MG/1 ML SYRINGE SC SCH ×2 (12:20→22:04)
[2020-05-26] MEDS: AMIODARONE HCL 200 MG TAB PO SCH ×2 (12:21→22:03)
[2020-05-26] MEDS: FAMOTIDINE (10MG/ML) 2ML VL IV SCH ×2 (12:25→22:02)
[2020-05-26] MEDS: SODIUM CHLOR 0.9% PF (SALINE LOCK) 10ML VIAL/SYR IV SCH ×2 (12:26→22:03)
[2020-05-26 16:09] VITALS: BP 132/53
[2020-05-27] VITALS: BP 104/46
[2020-05-27] MEDS: ACCU-CHEK COMFORT CURVE STRIP VI SCH ×4 (00:36→17:59)
[2020-05-27] MEDS: InsuLIN REG 1unit/0.01ml Soln (100units/ml) SC SCH ×4 (00:37→18:00)
[2020-05-27] MEDS: MEROPENEM 1GM IVPB 100 ML IV SCH ×3 (02:09→17:59)
[2020-05-27] MEDS: FREE WATER GT SCH ×2 (02:09→05:43)
[2020-05-27] MEDS: ALBUTEROL SULF 2.5 MG/0.5ML(0.5%) NEB SOLN NEB SCH ×2 (06:30→22:25)
[2020-05-27] MEDS: BUDESONIDE (INHALATION) 0.5 MG/2 ML NEB NEB SCH ×2 (06:45→22:25)
[2020-05-27 07:02] LABS: Eosinophils # (auto) 0.7 10 ^3/uL (0-0.8); Hematocrit 22.8 % (41.0-53.0); Mean Corpuscular Volume 84.7 fL (80.0-100.0)
[2020-05-27 07:05] LABS: Basophils # (auto) 0.2 10 ^3/uL (0-0.2); Basophils % (auto) 1.3 % (0.0-2.0); Eosinophils % (auto) 4.6 % (0.0-7.0); Hemoglobin 7.7 g/dL (13.5-17.5); Lymphocytes % (auto) 12.7 % (10.0-50.0); Mean Corpuscular Hemoglobin 28.5 pg (28.0-32.0); Mean Corpuscular Hgb Conc. 33.7 g/dL (32.0-36.0); Monocytes # (auto) 0.9 10 ^3/uL (0-1.3); Monocytes % (auto) 5.6 % (0.0-12.0); Neutrophils # (auto) 12.2 10 ^3/uL (1.6-8.6); Neutrophils % (auto) 75.8 % (37.0-80.0); Nucleated Red Blood Cells % 0.1 %; Platelet Count (auto) 318 10^3/uL (140-450); Red Blood Cells 2.69 10^6/uL (4.5-5.90); Red Cell Distribution Width 17.7 % (11.8-14.3); White Blood Cell 16.1 10^3/uL (4.4-10.8)
[2020-05-27 07:28] LABS: Calcium 7.5 mg/dL (8.5-10.1); Magnesium 2.2 mg/dL (1.6-2.6)
[2020-05-27 07:31] LABS: BUN/Creatinine Ratio 33.3
[2020-05-27 08:00] VITALS: BP 148/56
[2020-05-27] MEDS: SODIUM CHLOR 0.9% PF (SALINE LOCK) 10ML VIAL/SYR IV SCH ×2 (10:00→22:09)
[2020-05-27] MEDS: INSULIN LANTUS (GLARGINE) 1 /0.01ml (100units/ml) SC SCH ×2 (10:00→22:10)
[2020-05-27] MEDS ORDERED: FUROSEMIDE 40 MG/4 ML VIAL IV SCH (10:00)
[2020-05-27] MEDS ORDERED: BUMETANIDE 2.5mg/10ml (0.25 mg/ml) INJ IV ONE (10:15)
[2020-05-27] MEDS: FAMOTIDINE (10MG/ML) 2ML VL IV SCH ×2 (10:39→22:09)
[2020-05-27] MEDS: ZINC SULFATE 220mg CAP or TAB PO SCH (10:40)
[2020-05-27] MEDS: LINEZOLID 600MG/300ML 300 ML IV SCH ×2 (10:40→22:09)
[2020-05-27] MEDS: CHOLECALCIFEROL (VITD3) 2,000 UNIT CAP/TAB PO SCH (10:40)
[2020-05-27] MEDS: FLUCONAZOLE 200MG/100ML 100 ML IV SCH (10:40)
[2020-05-27] MEDS: ENOXAPARIN SOD 100 MG/1 ML SYRINGE SC SCH ×2 (10:40→22:10)
[2020-05-27] MEDS: AMIODARONE HCL 200 MG TAB PO SCH ×2 (10:41→22:09)
[2020-05-27] MEDS: ATENOLOL 50 MG TAB PO SCH (10:41)
[2020-05-27] MEDS: ASCORBIC ACID 1,000 MG TAB PO SCH (10:41)
[2020-05-27] MEDS: QUEtiapine FUMARATE 25 MG TAB PO SCH ×2 (10:42→22:09)
[2020-05-27] MEDS: MORPHINE SULF INJ 2 MG/ML SYRINGE 1ML IV PRN (14:22)
[2020-05-27 15:50] VITALS: BP 159/58
[2020-05-28] VITALS: BP 142/54
[2020-05-28] MEDS: ACCU-CHEK COMFORT CURVE STRIP VI SCH ×4 (00:08→18:01)
[2020-05-28] MEDS: InsuLIN REG 1unit/0.01ml Soln (100units/ml) SC SCH ×4 (00:14→17:59)
[2020-05-28] MEDS: MEROPENEM 1GM IVPB 100 ML IV SCH ×3 (01:57→18:02)
[2020-05-28] MEDS: MORPHINE SULF INJ 2 MG/ML SYRINGE 1ML IV PRN ×2 (04:46→09:52)
[2020-05-28] MEDS: ALBUTEROL SULF 2.5 MG/0.5ML(0.5%) NEB SOLN NEB SCH ×3 (06:45→21:02)
[2020-05-28 08:00] VITALS: BP 136/57
[2020-05-28] MEDS: FLUCONAZOLE 200MG/100ML 100 ML IV SCH (09:00)
[2020-05-28] MEDS: AMIODARONE HCL 200 MG TAB PO SCH ×2 (09:48→22:00)
[2020-05-28] MEDS: BUDESONIDE (INHALATION) 0.5 MG/2 ML NEB NEB SCH ×2 (09:48→21:02)
[2020-05-28] MEDS: SODIUM CHLOR 0.9% PF (SALINE LOCK) 10ML VIAL/SYR IV SCH ×2 (09:48→22:00)
[2020-05-28] MEDS: ASCORBIC ACID 1,000 MG TAB PO SCH (09:49)
[2020-05-28] MEDS: CHOLECALCIFEROL (VITD3) 2,000 UNIT CAP/TAB PO SCH (09:49)
[2020-05-28] MEDS: QUEtiapine FUMARATE 25 MG TAB PO SCH ×2 (09:49→22:00)
[2020-05-28] MEDS: ENOXAPARIN SOD 100 MG/1 ML SYRINGE SC SCH ×2 (09:49→22:00)
[2020-05-28] MEDS: ATENOLOL 50 MG TAB PO SCH (09:50)
[2020-05-28] MEDS: FAMOTIDINE (10MG/ML) 2ML VL IV SCH ×2 (09:50→22:00)
[2020-05-28] MEDS: ZINC SULFATE 220mg CAP or TAB PO SCH (09:50)
[2020-05-28] MEDS: LINEZOLID 600MG/300ML 300 ML IV SCH ×2 (09:51→22:00)
[2020-05-28] MEDS: BUMETANIDE 2.5mg/10ml (0.25 mg/ml) INJ IV SCH (09:51)
[2020-05-28 09:53] LABS: Eosinophils # (auto) 0.9 10 ^3/uL (0-0.8); Hemoglobin 8.2 g/dL (13.5-17.5); Lymphocytes # (auto) 1.6 10 ^3/uL (0.4-5.4)
[2020-05-28 09:57] LABS: Basophils # (auto) 0.1 10 ^3/uL (0-0.2); Basophils % (auto) 0.9 % (0.0-2.0); Hematocrit 24.1 % (41.0-53.0); Lymphocytes % (auto) 10.2 % (10.0-50.0); Mean Corpuscular Hemoglobin 28.8 pg (28.0-32.0); Mean Corpuscular Hgb Conc. 33.8 g/dL (32.0-36.0); Mean Corpuscular Volume 85.1 fL (80.0-100.0); Monocytes % (auto) 6.1 % (0.0-12.0); Neutrophils # (auto) 12.1 10 ^3/uL (1.6-8.6); Neutrophils % (auto) 76.8 % (37.0-80.0); Nucleated Red Blood Cells % 0.1 %; Platelet Count (auto) 356 10^3/uL (140-450); Red Blood Cells 2.84 10^6/uL (4.5-5.90); Red Cell Distribution Width 17.6 % (11.8-14.3); White Blood Cell 15.7 10^3/uL (4.4-10.8)
[2020-05-28 10:10] LABS: BUN/Creatinine Ratio 26.5; Calcium 7.4 mg/dL (8.5-10.1); Magnesium 2.2 mg/dL (1.6-2.6); Potassium 4.2 mmol/L (3.5-5.1)
[2020-05-28] MEDS: INSULIN LANTUS (GLARGINE) 1 /0.01ml (100units/ml) SC SCH ×2 (11:14→22:00)
[2020-05-28 15:59] VITALS: BP 148/56
[2020-05-28] MEDS: Glucerna 1.2 Cal 1Liter BOTTLE GT SCH (16:20)
[2020-05-28] MEDS ORDERED: BUMETANIDE 2.5mg/10ml (0.25 mg/ml) INJ IV ONE (18:00)
[2020-05-29] VITALS: BP 129/73
[2020-05-29] MEDS: InsuLIN REG 1unit/0.01ml Soln (100units/ml) SC SCH ×5 (02:00→22:50)
[2020-05-29] MEDS: ACCU-CHEK COMFORT CURVE STRIP VI SCH ×5 (02:00→23:02)
[2020-05-29] MEDS: MEROPENEM 1GM IVPB 100 ML IV SCH ×3 (04:30→18:20)
[2020-05-29 06:04] LABS: Hematocrit 23.4 % (41.0-53.0); Hemoglobin 7.8 g/dL (13.5-17.5); Mean Corpuscular Hemoglobin 28.6 pg (28.0-32.0); Mean Corpuscular Hgb Conc. 33.5 g/dL (32.0-36.0); Mean Corpuscular Volume 85.5 fL (80.0-100.0); Platelet Count (auto) 372 10^3/uL (140-450); Red Blood Cells 2.74 10^6/uL (4.5-5.90); Red Cell Distribution Width 17.3 % (11.8-14.3); White Blood Cell 17.9 10^3/uL (4.4-10.8)
[2020-05-29 06:07] LABS: Basophils % (manual) 0 (0.0-2.0); Blast Cells 0; Metamyelocytes % 0; Myelocytes % 0; Promyelocytes % 0; Reactive Lymphocytes 0
[2020-05-29] MEDS: BUDESONIDE (INHALATION) 0.5 MG/2 ML NEB NEB SCH ×2 (06:24→19:48)
[2020-05-29] MEDS: ALBUTEROL SULF 2.5 MG/0.5ML(0.5%) NEB SOLN NEB SCH ×3 (06:24→19:48)
[2020-05-29 06:34] LABS: BUN/Creatinine Ratio 23.8; Calcium 7.2 mg/dL (8.5-10.1)
[2020-05-29 08:00] VITALS: BP 132/98
[2020-05-29 10:14] LABS: Band Neutrophils % (manual) 3; Lymphocytes % (manual) 13 (10.0-50.0)
[2020-05-29 10:15] LABS: Eosinophils % (manual) 5 (0-7); Monocytes % (manual) 3 (0-12)
[2020-05-29] MEDS: FLUCONAZOLE 200MG/100ML 100 ML IV SCH (10:19)
[2020-05-29] MEDS: BUMETANIDE 2.5mg/10ml (0.25 mg/ml) INJ IV SCH (10:20)
[2020-05-29] MEDS: SODIUM CHLOR 0.9% PF (SALINE LOCK) 10ML VIAL/SYR IV SCH ×2 (10:21→22:00)
[2020-05-29] MEDS: LINEZOLID 600MG/300ML 300 ML IV SCH ×2 (10:21→23:00)
[2020-05-29] MEDS: FAMOTIDINE (10MG/ML) 2ML VL IV SCH ×2 (10:21→23:00)
[2020-05-29] MEDS: ZINC SULFATE 220mg CAP or TAB PO SCH (10:22)
[2020-05-29] MEDS: AMIODARONE HCL 200 MG TAB PO SCH ×2 (10:22→23:01)
[2020-05-29] MEDS: QUEtiapine FUMARATE 25 MG TAB PO SCH ×2 (10:22→23:01)
[2020-05-29] MEDS: ENOXAPARIN SOD 100 MG/1 ML SYRINGE SC SCH ×2 (10:23→23:01)
[2020-05-29] MEDS: ASCORBIC ACID 1,000 MG TAB PO SCH (10:23)
[2020-05-29] MEDS: ATENOLOL 50 MG TAB PO SCH (10:23)
[2020-05-29] MEDS: CHOLECALCIFEROL (VITD3) 2,000 UNIT CAP/TAB PO SCH (10:23)
[2020-05-29] MEDS: INSULIN LANTUS (GLARGINE) 1 /0.01ml (100units/ml) SC SCH ×2 (10:38→23:05)
[2020-05-29 15:32] VITALS: BP 116/51
[2020-05-29] MEDS: MORPHINE SULF INJ 2 MG/ML SYRINGE 1ML IV PRN (20:32)
[2020-05-30 00:31] VITALS: BP 140/71
[2020-05-30] MEDS: MEROPENEM 1GM IVPB 100 ML IV SCH ×3 (02:00→17:59)
[2020-05-30] MEDS: ACCU-CHEK COMFORT CURVE STRIP VI SCH ×4 (05:50→23:20)
[2020-05-30] MEDS: InsuLIN REG 1unit/0.01ml Soln (100units/ml) SC SCH ×4 (05:58→23:01)
[2020-05-30] MEDS: ALBUTEROL SULF 2.5 MG/0.5ML(0.5%) NEB SOLN NEB SCH ×3 (07:28→18:50)
[2020-05-30] MEDS: BUDESONIDE (INHALATION) 0.5 MG/2 ML NEB NEB SCH ×2 (07:28→18:50)
[2020-05-30] MEDS: ALBUTEROL SULF HFA 90MCG INH 200DOSE IN PRN (07:28)
[2020-05-30 08:01] VITALS: BP 105/50
[2020-05-30] MEDS: SODIUM CHLOR 0.9% PF (SALINE LOCK) 10ML VIAL/SYR IV SCH ×2 (10:00→23:14)
[2020-05-30] MEDS: BUMETANIDE 2.5mg/10ml (0.25 mg/ml) INJ IV SCH (10:00)
[2020-05-30] MEDS: ATENOLOL 50 MG TAB PO SCH (10:00)
[2020-05-30] MEDS: FLUCONAZOLE 200MG/100ML 100 ML IV SCH (10:34)
[2020-05-30] MEDS: FAMOTIDINE (10MG/ML) 2ML VL IV SCH ×2 (10:36→23:02)
[2020-05-30] MEDS: LINEZOLID 600MG/300ML 300 ML IV SCH (10:36)
[2020-05-30] MEDS: QUEtiapine FUMARATE 25 MG TAB PO SCH (10:37)
[2020-05-30] MEDS: ZINC SULFATE 220mg CAP or TAB PO SCH (10:37)
[2020-05-30] MEDS: AMIODARONE HCL 200 MG TAB PO SCH (10:37)
[2020-05-30] MEDS: ASCORBIC ACID 1,000 MG TAB PO SCH (10:40)
[2020-05-30] MEDS: ENOXAPARIN SOD 100 MG/1 ML SYRINGE SC SCH (10:45)
[2020-05-30] MEDS: CHOLECALCIFEROL (VITD3) 2,000 UNIT CAP/TAB PO SCH (10:45)
[2020-05-30] MEDS: INSULIN LANTUS (GLARGINE) 1 /0.01ml (100units/ml) SC SCH ×2 (11:21→23:01)
[2020-05-30 15:32] VITALS: BP 98/56
[2020-05-30 22:10] VITALS: BP 118/57
[2020-05-31] MEDS: LINEZOLID 600MG/300ML 300 ML IV SCH ×3 (00:24→23:03)
[2020-05-31] MEDS: ENOXAPARIN SOD 100 MG/1 ML SYRINGE SC SCH ×3 (00:25→23:04)
[2020-05-31] MEDS: QUEtiapine FUMARATE 25 MG TAB PO SCH ×3 (00:25→23:04)
[2020-05-31] MEDS: AMIODARONE HCL 200 MG TAB PO SCH ×3 (00:25→23:04)
[2020-05-31] MEDS: MEROPENEM 1GM IVPB 100 ML IV SCH ×3 (02:00→18:35)
[2020-05-31 02:25] VITALS: BP 124/60
[2020-05-31] MEDS: ACCU-CHEK COMFORT CURVE STRIP VI SCH ×4 (05:10→23:04)
[2020-05-31] MEDS: InsuLIN REG 1unit/0.01ml Soln (100units/ml) SC SCH ×4 (05:21→23:42)
[2020-05-31] MEDS: ALBUTEROL SULF 2.5 MG/0.5ML(0.5%) NEB SOLN NEB SCH ×3 (06:00→22:01)
[2020-05-31 08:00] VITALS: BP 130/50
[2020-05-31] MEDS: FLUCONAZOLE 200MG/100ML 100 ML IV SCH (08:04)
[2020-05-31 09:50] LABS: Basophils # (auto) 0 10 ^3/uL (0-0.2); Basophils % (auto) 0.2 % (0.0-2.0); Mean Corpuscular Volume 85.7 fL (80.0-100.0); Monocytes # (auto) 0.9 10 ^3/uL (0-1.3); Neutrophils # (auto) 10.8 10 ^3/uL (1.6-8.6); White Blood Cell 14.6 10^3/uL (4.4-10.8)
[2020-05-31 09:54] LABS: Eosinophils # (auto) 0.9 10 ^3/uL (0-0.8); Eosinophils % (auto) 5.8 % (0.0-7.0); Hematocrit 21.9 % (41.0-53.0); Hemoglobin 7.5 g/dL (13.5-17.5); Mean Corpuscular Hemoglobin 29.2 pg (28.0-32.0); Mean Corpuscular Hgb Conc. 34.1 g/dL (32.0-36.0); Nucleated Red Blood Cells % 0.1 %; Platelet Count (auto) 415 10^3/uL (140-450); Red Blood Cells 2.56 10^6/uL (4.5-5.90); Red Cell Distribution Width 18.3 % (11.8-14.3)
[2020-05-31] MEDS: CHOLECALCIFEROL (VITD3) 2,000 UNIT CAP/TAB PO SCH (10:00)
[2020-05-31] MEDS: BUDESONIDE (INHALATION) 0.5 MG/2 ML NEB NEB SCH ×2 (10:00→22:01)
[2020-05-31] MEDS: ATENOLOL 50 MG TAB PO SCH (10:00)
[2020-05-31] MEDS: ZINC SULFATE 220mg CAP or TAB PO SCH (10:00)
[2020-05-31] MEDS: ASCORBIC ACID 1,000 MG TAB PO SCH (10:00)
[2020-05-31 10:16] LABS: Calcium 7.4 mg/dL (8.5-10.1); Magnesium 2.3 mg/dL (1.6-2.6); Potassium 4.2 mmol/L (3.5-5.1)
[2020-05-31] MEDS: BUMETANIDE 2.5mg/10ml (0.25 mg/ml) INJ IV SCH (10:48)
[2020-05-31] MEDS: SODIUM CHLOR 0.9% PF (SALINE LOCK) 10ML VIAL/SYR IV SCH ×2 (10:50→23:03)
[2020-05-31] MEDS: INSULIN LANTUS (GLARGINE) 1 /0.01ml (100units/ml) SC SCH ×2 (12:00→23:06)
[2020-05-31 13:00] VITALS: BP 125/60
[2020-05-31] MEDS: FAMOTIDINE (10MG/ML) 2ML VL IV SCH ×2 (15:09→23:02)
[2020-05-31 16:00] VITALS: BP 146/72
[2020-06-01] VITALS: BP 145/70
[2020-06-01] MEDS: MORPHINE SULF INJ 2 MG/ML SYRINGE 1ML IV PRN ×2 (01:45→11:07)
[2020-06-01] MEDS: MEROPENEM 1GM IVPB 100 ML IV SCH ×3 (03:01→18:09)
[2020-06-01] MEDS: ACCU-CHEK COMFORT CURVE STRIP VI SCH ×3 (05:32→17:09)
[2020-06-01] MEDS: InsuLIN REG 1unit/0.01ml Soln (100units/ml) SC SCH ×3 (05:53→17:08)
[2020-06-01] MEDS: ALBUTEROL SULF 2.5 MG/0.5ML(0.5%) NEB SOLN NEB SCH ×2 (06:30→19:02)
[2020-06-01] MEDS: BUDESONIDE (INHALATION) 0.5 MG/2 ML NEB NEB SCH ×2 (06:30→19:02)
[2020-06-01 08:00] VITALS: BP 126/53
[2020-06-01] MEDS: FLUCONAZOLE 200MG/100ML 100 ML IV SCH (08:30)
[2020-06-01] MEDS: BUMETANIDE 1mg/4ml VIAL (0.25mg/ml) IV SCH (09:45)
[2020-06-01] MEDS: FAMOTIDINE (10MG/ML) 2ML VL IV SCH ×2 (09:45→22:07)
[2020-06-01] MEDS: SODIUM CHLOR 0.9% PF (SALINE LOCK) 10ML VIAL/SYR IV SCH ×2 (09:45→22:07)
[2020-06-01] MEDS: QUEtiapine FUMARATE 25 MG TAB PO SCH ×2 (10:00→22:08)
[2020-06-01] MEDS: AMIODARONE HCL 200 MG TAB PO SCH ×2 (10:00→22:08)
[2020-06-01] MEDS: ZINC SULFATE 220mg CAP or TAB PO SCH (10:00)
[2020-06-01] MEDS: INSULIN LANTUS (GLARGINE) 1 /0.01ml (100units/ml) SC SCH (10:00)
[2020-06-01] MEDS: ATENOLOL 50 MG TAB PO SCH (10:00)
[2020-06-01] MEDS: ENOXAPARIN SOD 100 MG/1 ML SYRINGE SC SCH ×2 (10:00→22:08)
[2020-06-01] MEDS: CHOLECALCIFEROL (VITD3) 2,000 UNIT CAP/TAB PO SCH (10:00)
[2020-06-01] MEDS: LINEZOLID 600MG/300ML 300 ML IV SCH ×2 (10:00→22:07)
[2020-06-01] MEDS: ASCORBIC ACID 1,000 MG TAB PO SCH (10:00)
[2020-06-01 15:42] VITALS: BP 130/56
[2020-06-02] VITALS: BP 153/71
[2020-06-02] MEDS: ACCU-CHEK COMFORT CURVE STRIP VI SCH ×3 (00:14→11:55)
[2020-06-02] MEDS: InsuLIN REG 1unit/0.01ml Soln (100units/ml) SC SCH ×3 (00:16→11:55)
[2020-06-02] MEDS: INSULIN LANTUS (GLARGINE) 1 /0.01ml (100units/ml) SC SCH ×2 (00:16→11:37)
[2020-06-02] MEDS: MEROPENEM 1GM IVPB 100 ML IV SCH ×2 (02:24→11:31)
[2020-06-02 07:26] VITALS: BP 143/72
[2020-06-02] MEDS: FLUCONAZOLE 200MG/100ML 100 ML IV SCH (09:00)
[2020-06-02] MEDS: FAMOTIDINE (10MG/ML) 2ML VL IV SCH (10:00)
[2020-06-02 10:18] LABS: Basophils # (auto) 0.1 10 ^3/uL (0-0.2); Basophils % (auto) 0.9 % (0.0-2.0); Eosinophils # (auto) 1.3 10 ^3/uL (0-0.8); Eosinophils % (auto) 8.6 % (0.0-7.0); Hematocrit 26.3 % (41.0-53.0); Hemoglobin 8.7 g/dL (13.5-17.5); Lymphocytes # (auto) 2.1 10 ^3/uL (0.4-5.4); Mean Corpuscular Hemoglobin 28.5 pg (28.0-32.0); Mean Corpuscular Hgb Conc. 33.1 g/dL (32.0-36.0); Monocytes # (auto) 0.9 10 ^3/uL (0-1.3); Monocytes % (auto) 6.1 % (0.0-12.0); Neutrophils # (auto) 10.5 10 ^3/uL (1.6-8.6); Neutrophils % (auto) 70.4 % (37.0-80.0); Platelet Count (auto) 461 10^3/uL (140-450); Red Blood Cells 3.06 10^6/uL (4.5-5.90); White Blood Cell 14.9 10^3/uL (4.4-10.8)
[2020-06-02 10:54] LABS: Anion Gap 6 (5-15); BUN/Creatinine Ratio 26.2; Blood Urea Nitrogen 17 mg/dL (7-18); Calcium 7.6 mg/dL (8.5-10.1); Carbon Dioxide 30 mmol/L (21-32); Chloride 102 mmol/L (98-107); GFR African American 158 mL/min; GFR Non-African American 130 mL/min; Glucose 137 mg/dL (74-106); Potassium 4.9 mmol/L (3.5-5.1); Sodium 138 mmol/L (136-145)
[2020-06-02] MEDS: BUMETANIDE 1mg/4ml VIAL (0.25mg/ml) IV SCH (11:31)
[2020-06-02] MEDS: SODIUM CHLOR 0.9% PF (SALINE LOCK) 10ML VIAL/SYR IV SCH (11:32)
[2020-06-02] MEDS: ZINC SULFATE 220mg CAP or TAB PO SCH (11:32)
[2020-06-02] MEDS: LINEZOLID 600MG/300ML 300 ML IV SCH (11:32)
[2020-06-02] MEDS: QUEtiapine FUMARATE 25 MG TAB PO SCH (11:33)
[2020-06-02] MEDS: AMIODARONE HCL 200 MG TAB PO SCH (11:33)
[2020-06-02] MEDS: ATENOLOL 50 MG TAB PO SCH (11:34)
[2020-06-02] MEDS: ASCORBIC ACID 1,000 MG TAB PO SCH (11:35)
[2020-06-02] MEDS: CHOLECALCIFEROL (VITD3) 2,000 UNIT CAP/TAB PO SCH (11:36)
[2020-06-02] MEDS: ENOXAPARIN SOD 100 MG/1 ML SYRINGE SC SCH (11:37)
== END 2020-06-02 16:14 | DRG 3 ==
LOC: EDBD 00:02 → ER 00:05 → EDSEX 00:05 → TELE 00:06 → TELE-WESTW 04-15 14:38 → ICU WEST 04-21 09:05 → TELE-WESTW 05-22 16:11 → ICU WEST 05-26 06:25 → TELE-WESTW 05-26 06:29
PROVIDERS: ADMIT Nurse Practitioner; ATTEND Internal Medicine Geriatric Medicine
PROC: XW033E5 Introduction of Remdesivir Anti-infective into Peripheral Vein, Percutaneous Approach, New Technology Group 5 (ICD-10-PCS; 2020-04-16)
PROC: 5A1955Z Respiratory Ventilation, Greater than 96 Consecutive Hours (ICD-10-PCS; 2020-04-21)
PROC: 0BH17EZ Insertion of Endotracheal Airway into Trachea, Via Natural or Artificial Opening (ICD-10-PCS; 2020-04-21)
PROC: 02HV33Z Insertion of Infusion Device into Superior Vena Cava, Percutaneous Approach (ICD-10-PCS; 2020-04-21)
PROC: 0DH60UZ Insertion of Feeding Device into Stomach, Open Approach (ICD-10-PCS; 2020-05-14)
PROC: 0B110F4 Bypass Trachea to Cutaneous with Tracheostomy Device, Open Approach (ICD-10-PCS; principal; 2020-05-14 14:25)
PROC: 5A12012 Performance of Cardiac Output, Single, Manual (ICD-10-PCS; 2020-05-26)
DX: A41.89 Other specified sepsis (principal); U07.1 COVID-19; N17.0 Acute kidney failure with tubular necrosis; J96.01 Acute respiratory failure with hypoxia; G93.41 Metabolic encephalopathy; R65.21 Severe sepsis with septic shock; J12.82 Pneumonia due to coronavirus disease 2019; E87.0 Hyperosmolality and hypernatremia; J98.11 Atelectasis; E87.3 Alkalosis; I82.622 Acute embolism and thrombosis of deep veins of left upper extremity; B37.49 Other urogenital candidiasis; Z99.11 Dependence on respirator [ventilator] status; E87.1 Hypo-osmolality and hyponatremia; E87.5 Hyperkalemia; R13.10 Dysphagia, unspecified; I50.9 Heart failure, unspecified; E11.65 Type 2 diabetes mellitus with hyperglycemia; D69.6 Thrombocytopenia, unspecified; E78.5 Hyperlipidemia, unspecified; M48.02 Spinal stenosis, cervical region; R26.9 Unspecified abnormalities of gait and mobility; I48.91 Unspecified atrial fibrillation; Z79.899 Other long term (current) drug therapy; I11.0 Hypertensive heart disease with heart failure
CPT/HCPCS: 36415; 36569; 36600; 70450; 71045; 72125; 74018; 80048; 80053; 80202; 81001; 82550; 82570; 82728; 82805; 82962; 83605; 83615; 83735; 83880; 84132; 84156; 84443; 84484; 85007; 85025; 85027; 85379; 85610; 85730; 86141; 86850; 86900; 86901; 87040; 87070; 87077; 87081; 87086; 87088; 87186; 87205; 87426; 87493; 92950; 93005; 93306; 93971; 94002; 94003; 94640; 94644; 95819; 96365; 96372; 96375; 97110; 97530; C9113; G0378; J0330; J0610; J0696; J1100; J1450; J1815; J2001; J2185; J2250; J2704; J3480; J3490; J7060